=== PATIENT | female | born 1990 | race Caucasian/White ===

== ENCOUNTER 2023-01-31 11:33 | Outpatient (OUT) | payer OTHER, SELFPAY ==
[2023-02-02 00:07] LABS: AFP Value 31.9 ng/mL (.); Gest. Age on Collection Date 16.9 weeks (.); Insulin Dep Diabetes No (.); Maternal Age At EDD 33.8 yr (.); OSBR Risk 1 IN 10000 (.); Results Report (.)
[2023-02-05 11:09] LABS: Age Gdln ACOG Testing Note (.); HPV Aptima Negative (Negative); IGP, Aptima HPV, rfx 16/18,45 Note (.)
== END 2023-01-31 11:34 ==
LOC: LAB 11:37
PROVIDERS: PCP Family Medicine; Visit Provider Physician Assistant
DX: Z34.90 Encounter for supervision of normal pregnancy, unspecified, unspecified trimester (principal)
CPT/HCPCS: 36415; 87624; G0145

== ENCOUNTER 2023-02-28 09:38 | Outpatient (OUT) | payer OTHER, SELFPAY ==
--- NOTE | 2023-02-28 | US_ITS ---
[address] [address] Patient Name: DELORES GARCIA MRN: [id number] date: 1990 Sex: F Assigned Patient Location: US Current Patient Location: US Accession/Order Number: [id number] Exam Date: 02/28/2023 09:42 Report Date: 02/28/2023 16:46 At the request of: ADE JOY Procedure: US OB anatomy EXAMINATION: US OB anatomy, US OB transvaginal HISTORY: ANATOMY COMPARISON: No relevant comparison available. TECHNIQUE: Transabdominal sonographic examination was performed for obstetrical and evaluation. FINDINGS: Number: 1 Heart Rate: 144.0 bpm H.B. /min Amniotic Fluid Volume: Subjectively normal position: Transverse presentation, transverse lie Placental Location: Posterior, grade 0. Placental edge 5.5 cm from the internal os Cervix Length: 3.8 cm , closed Normally visualized anatomy: Cerebellum, choroid plexus, cisterna magna, lateral cerebral ventricles, orbits, midline falx, hard palate, four-chamber heart, RVOT, LVOT, stomach, kidneys, bladder, umbilical cord insertion into the abdomen, three-vessel cord, cervical spine, thoracic spine, lumbar spine, sacral spine, right upper extremity, left upper extremity, right lower extremity, left lower extremity Suboptimally visualized anatomy: None BIOMETRY: BPD: 5.3 cm 22 weeks 0 days , 87% HC: 20.3 cm 22 weeks 3 days, 94% AC: 16.8 cm 21 weeks 5 days, 73% FL: 3.5 cm 21 weeks 0 days, 48% EFW:433.1 grams; 15 ounces, 82% FL/AC: 20.9 FL/BPD: 66.7 HC/AC: 1.2 GESTATIONAL AGE: Age by EDC: 20 weeks 6 days DELIA by EDC: 07/12/2023 Age by current US: 21 weeks 6 days DELIA by current US: 07/05/2023 IMPRESSION: Normal anatomy scan Closed cervix measuring 3.8 cm in length *Reference: [employer] Practice Guideline for the performance of Obstetric Ultrasound Examinations, June 02, 2007. Electronically authenticated by: BRANDON RAY Date: 02/28/2023 16:46
--- NOTE | 2023-02-28 | US_ITS ---
[address] [address] Patient Name: DELORES GARCIA MRN: [id number] date: 1990 Sex: F Assigned Patient Location: US Current Patient Location: US Accession/Order Number: [id number] Exam Date: 02/28/2023 09:42 Report Date: 02/28/2023 16:46 At the request of: ADE JOY Procedure: US OB transvaginal EXAMINATION: US OB anatomy, US OB transvaginal HISTORY: ANATOMY COMPARISON: No relevant comparison available. TECHNIQUE: Transabdominal sonographic examination was performed for obstetrical and evaluation. FINDINGS: Number: 1 Heart Rate: 144.0 bpm H.B. /min Amniotic Fluid Volume: Subjectively normal position: Transverse presentation, transverse lie Placental Location: Posterior, grade 0. Placental edge 5.5 cm from the internal os Cervix Length: 3.8 cm , closed Normally visualized anatomy: Cerebellum, choroid plexus, cisterna magna, lateral cerebral ventricles, orbits, midline falx, hard palate, four-chamber heart, RVOT, LVOT, stomach, kidneys, bladder, umbilical cord insertion into the abdomen, three-vessel cord, cervical spine, thoracic spine, lumbar spine, sacral spine, right upper extremity, left upper extremity, right lower extremity, left lower extremity Suboptimally visualized anatomy: None BIOMETRY: BPD: 5.3 cm 22 weeks 0 days , 87% HC: 20.3 cm 22 weeks 3 days, 94% AC: 16.8 cm 21 weeks 5 days, 73% FL: 3.5 cm 21 weeks 0 days, 48% EFW:433.1 grams; 15 ounces, 82% FL/AC: 20.9 FL/BPD: 66.7 HC/AC: 1.2 GESTATIONAL AGE: Age by EDC: 20 weeks 6 days DELIA by EDC: 07/12/2023 Age by current US: 21 weeks 6 days DELIA by current US: 07/05/2023 IMPRESSION: Normal anatomy scan Closed cervix measuring 3.8 cm in length *Reference: [employer] Practice Guideline for the performance of Obstetric Ultrasound Examinations, June 02, 2007. Electronically authenticated by: BRANDON RAY Date: 02/28/2023 16:46
== END 2023-02-28 09:39 | disposition home or self-care (01) ==
LOC: US 09:38
PROVIDERS: PCP Family Medicine; Visit Provider Physician Assistant
DX: Z34.92 Encounter for supervision of normal pregnancy, unspecified, second trimester (principal)
CPT/HCPCS: 76805; 76817

== ENCOUNTER 2023-04-05 10:48 | Outpatient (OUT) | payer OTHER, SELFPAY ==
[2023-04-05 11:57] LABS: Basophils Absolute Auto 0.1 10^3/uL (0.0-0.1); Basophils Percent Auto 0.4 % (0.2-2.0); Eosinophils Absolute Auto 0.1 10^3/uL (0.0-0.7); Eosinophils Percent Auto 0.8 % (0.9-7.0); Hematocrit 31.3 % (36.0-48.0); Hemoglobin 10.4 g/dL (12.0-16.0); Immature Granulocytes Abs Auto 0.38 10^3/uL (0.00-0.03); Immature Granulocytes Pct Auto 3.4 % (0.0-0.5); Lymphocytes Absolute Auto 1.2 10^3/uL (1.2-3.8); Lymphocytes Percent Auto 10.8 % (20.5-60.0); Mean Corpuscular HGB Conc 33.2 g/dL (29.9-35.2); Mean Corpuscular Hemoglobin 31.3 pg (26.7-34.0); Mean Corpuscular Volume 94.3 fL (81.0-99.0); Mean Platelet Volume 10.1 fL (9.5-13.5); Monocytes Absolute Auto 0.6 10^3/uL (0.3-0.8); Monocytes Percent Auto 5.3 % (1.7-12.0); Neutrophils Absolute Auto 8.9 10^3/uL (1.4-6.5); Neutrophils Percent Auto 79.3 % (43.0-75.0); Platelet Count 235 10^3/uL (150-450); Red Blood Count 3.32 10^6/uL (4.20-5.40); Red Cell Distribution Width 12.9 % (11.0-15.0); White Blood Count 11.2 10^3/uL (4.0-11.0)
[2023-04-05 12:15] LABS: Glucose 1 Hour 136 mg/dL
== END 2023-04-05 10:49 | disposition home or self-care (01) ==
LOC: LAB 10:48
PROVIDERS: Visit Provider Physician Assistant
DX: Z34.90 Encounter for supervision of normal pregnancy, unspecified, unspecified trimester (principal)
CPT/HCPCS: 36415; 82950; 85025

== ENCOUNTER 2023-05-13 10:27 | Outpatient (OUT) | payer OTHER, SELFPAY ==
--- NOTE | 2023-05-13 10:29 | US_ITS ---
[address] [address] Patient Name: DELORES YUSUF MRN: [id number] date: 1990 Sex: F Assigned Patient Location: US Current Patient Location: US Accession/Order Number: [id number] Exam Date: 05/13/2023 10:30 Report Date: 05/13/2023 17:02 At the request of: BASILIO RADFORD Procedure: US OB growth EXAMINATION: US OB growth HISTORY: LGA COMPARISON: No relevant comparison available. FINDINGS: Heart Rate: 133.0 bpm Amniotic Fluid Volume: 23.0 cm Number: 1.0 Position: Cephalic presentation, longitudinal lie Maximum Vertical Pocket: 9.7 cm cm 5.2 cm cm 4.3 cm cm 3.7 cm cm BIOMETRY: BPD: 8.6 cm cm; 34 weeks 5 days; 97% HC: 31.5 cmcm; 35 weeks 2 days, 97% AC: 29.9 cm cm; 33 weeks 6 days, 97% FL: 6.1 cm cm; 31 weeks 6 days; 48.5 % % EFW: 2219.4 grams, 4 lbs. 14 oz., 95% FL/AC: 20.5 FL/BPD: 71.4 HC/AC: 1.1 GESTATIONAL AGE: Age by EDC: 31 weeks 3 days DELIA by EDC: 07/12/2023 Age by US: 34 weeks 0 days DELIA by US: 06/24/2023 US/US OB growth IMPRESSION: Large for gestational age Borderline polyhydramnios Electronically authenticated by: BRANDON RAY Date: 05/13/2023 17:02
== END 2023-05-13 10:28 | disposition home or self-care (01) ==
LOC: US 10:27
PROVIDERS: Visit Provider Obstetrics & Gynecology
DX: O36.63X0 Maternal care for excessive fetal growth, third trimester, not applicable or unspecified (principal); Z3A.31 31 weeks gestation of pregnancy
CPT/HCPCS: 76816

== ENCOUNTER 2023-05-28 19:47 | Outpatient (OUT) | payer OTHER, SELFPAY ==
--- NOTE | 2023-05-28 20:00 | US_ITS ---
[address] [address] Patient Name: DELORES YUSUF MRN: [id number] date: 1990 Sex: F Assigned Patient Location: [facility] Current Patient Location: Accession/Order Number: [id number] Exam Date: 05/28/2023 20:00 Report Date: 05/29/2023 07:08 At the request of: BASILIO RADFORD Procedure: US OB BPP w non-stress EXAMINATION: US OB BPP w non-stress HISTORY: POLYHYRAMINOS IN THIRD TRIMESTER O40.3XX0 COMPARISON: No relevant comparison available. TECHNIQUE: Ultrasound biophysical profile was performed in the radiology department. non-reactive stress testing was performed by nursing staff in the birthing center. FINDINGS: BREATHING MOVEMENTS: 2.0 GROSS BODY MOVEMENTS: 2.0 TONE: 2.0 QUALITATIVE AMNIOTIC FLUID VOLUME: 2.0 PRESENTATION: CEPHALIC HEART RATE: 137.1 bpm H.B./min AMNIOTIC FLUID VOLUME: 18.8 cm cm GESTATIONAL AGE: 33 weeks 4 days CONCLUSION: Total biophysical profile score: 8.0 Electronically authenticated by: BRANDON RAY Date: 05/29/2023 07:08
[2023-05-28 20:31] VITALS: BP 119/85; PULSE 90
== END 2023-05-28 20:55 | disposition home or self-care (01) ==
LOC: US 19:50 → FBC 19:52
PROVIDERS: Visit Provider Obstetrics & Gynecology
DX: O40.3XX0 Polyhydramnios, third trimester, not applicable or unspecified (principal); Z3A.33 33 weeks gestation of pregnancy; O26.843 Uterine size-date discrepancy, third trimester
CPT/HCPCS: 76818

== ENCOUNTER 2023-05-31 08:31 | Outpatient (OUT) | payer OTHER, SELFPAY ==
[2023-05-31 11:09] VITALS: BP 129/86; PULSE 112
== END 2023-05-31 11:34 | disposition home or self-care (01) ==
LOC: FBCO 08:31 → FBC 11:04
PROVIDERS: Visit Provider Obstetrics & Gynecology
DX: O40.3XX0 Polyhydramnios, third trimester, not applicable or unspecified (principal); Z3A.00 Weeks of gestation of pregnancy not specified
CPT/HCPCS: 59025

== ENCOUNTER 2023-06-03 08:30 | Outpatient (OUT) | payer OTHER, SELFPAY ==
--- NOTE | 2023-06-03 10:59 | US_ITS ---
[address] [address] Patient Name: DELORES YUSUF MRN: [id number] date: 1990 Sex: F Assigned Patient Location: US Current Patient Location: Accession/Order Number: [id number] Exam Date: 06/03/2023 11:00 Report Date: 06/03/2023 17:29 At the request of: BASILIO RADFORD Procedure: US OB BPP w non-stress EXAMINATION: US OB BPP w non-stress HISTORY: Polyhydramnios in third trimester O40.3XX0 COMPARISON: 05/28/2023 TECHNIQUE: Ultrasound biophysical profile was performed in the radiology department. non-reactive stress testing was performed by nursing staff in the birthing center. FINDINGS: BREATHING MOVEMENTS: 2.0 GROSS BODY MOVEMENTS: 2.0 TONE: 2.0 QUALITATIVE AMNIOTIC FLUID VOLUME: 2.0 PRESENTATION: CEPHALIC HEART RATE: 135.7 bpm H.B./min AMNIOTIC FLUID VOLUME: 25.2 cm cm GESTATIONAL AGE: 34 weeks 3 days CONCLUSION: Total biophysical profile score: 8.0 Amniotic fluid index at the 95th percentile Electronically authenticated by: BRANDON RAY Date: 06/03/2023 17:29
[2023-06-03 11:23] VITALS: BP 133/83; PULSE 94
== END 2023-06-03 12:00 | disposition home or self-care (01) ==
LOC: US 08:36 → FBC 11:01
PROVIDERS: Visit Provider Obstetrics & Gynecology
DX: O40.3XX0 Polyhydramnios, third trimester, not applicable or unspecified (principal); Z3A.34 34 weeks gestation of pregnancy
CPT/HCPCS: 76818

== ENCOUNTER 2023-06-06 07:38 | Outpatient (OUT) | payer OTHER, SELFPAY ==
[2023-06-06 11:04] VITALS: BP 119/85; PULSE 100
== END 2023-06-06 11:50 | disposition home or self-care (01) ==
LOC: FBCO 07:39 → FBC 10:58
PROVIDERS: Visit Provider Obstetrics & Gynecology
DX: O43.899 Other placental disorders, unspecified trimester (principal); Z3A.00 Weeks of gestation of pregnancy not specified
CPT/HCPCS: 59025

== ENCOUNTER 2023-06-10 07:16 | Outpatient (OUT) | payer OTHER, SELFPAY ==
--- NOTE | 2023-06-10 | US_ITS ---
[address] [address] Patient Name: DELORES YUSUF MRN: [id number] date: 1990 Sex: F Assigned Patient Location: [facility] Current Patient Location: Accession/Order Number: [id number] Exam Date: 06/10/2023 09:08 Report Date: 06/10/2023 14:55 At the request of: BASILIO RADFORD Procedure: US OB BPP w non-stress EXAMINATION: US OB BPP w non-stress HISTORY: POLYHYDRAMINOS IN THIRD TRIMESTER O40.3XX0 COMPARISON: No relevant comparison available. TECHNIQUE: Ultrasound biophysical profile was performed in the radiology department. FINDINGS: BREATHING MOVEMENTS: 2.0 GROSS BODY MOVEMENTS: 2.0 TONE: 2.0 QUALITATIVE AMNIOTIC FLUID VOLUME: 2.0 PRESENTATION: CEPHALIC HEART RATE: 135.7 bpm H.B./min AMNIOTIC FLUID VOLUME: 25.0 cm cm GESTATIONAL AGE: 35 weeks 3 days CONCLUSION: Total biophysical profile score: 8.0 Electronically authenticated by: BRANDON RAY Date: 06/10/2023 14:55
[2023-06-10 09:24] VITALS: BP 132/91; PULSE 100
[2023-06-10 09:30] VITALS: BP 120/84; PULSE 106
[2023-06-10 09:35] VITALS: BP 118/85; PULSE 91
== END 2023-06-10 09:46 | disposition home or self-care (01) ==
LOC: US 07:17 → FBC 08:57
PROVIDERS: Visit Provider Obstetrics & Gynecology
DX: O40.3XX0 Polyhydramnios, third trimester, not applicable or unspecified (principal); Z3A.35 35 weeks gestation of pregnancy
CPT/HCPCS: 76818

== ENCOUNTER 2023-06-13 12:15 | Observation (INO) | payer OTHER, SELFPAY ==
[2023-06-13 11:04] VITALS: BP 127/80; PULSE 108
[2023-06-13 12:44] VITALS: BP 127/80
[2023-06-13] MEDS: NIFEdipine 10 MG CAPSULE 20 MG PO (12:44)
[2023-06-13] MEDS: BETAMETHASONE ACE/BETAMETHASONE SOD PHOS 30 MG/5 ML 12 MG IM (12:44)
[2023-06-13] MEDS: 0.9 % SODIUM CHLORIDE 1,000 ML 1000 ML IV (12:52)
[2023-06-13 14:20] VITALS: BP 127/85; PULSE 97
[2023-06-13 14:49] VITALS: RESP 18
--- NOTE | 2023-06-13 15:34 | PC.NURSE ---
Patient educated to return to [facility] unit tomorrow (06/14/23) at 1pm for second celestone shot. Patient verbalizes understanding and agrees to do so. Patient placed on schedule.
[2023-06-13 19:14] VITALS: BP 126/75; PULSE 91; TEMP 36.4
--- NOTE | 2023-06-13 19:52 | PC.NURSE ---
FHR monitor from [id number] was erroneous from a new patient placed in this bed before this patient was discharged completely out.
== END 2023-06-13 16:22 | disposition home or self-care (01) ==
LOC: FBCO 12:36 → FBC 12:36
PROVIDERS: Admitting Provider Obstetrics & Gynecology; Visit Provider Obstetrics & Gynecology
DX: O47.9 False labor, unspecified (principal); O43.899 Other placental disorders, unspecified trimester; Z3A.00 Weeks of gestation of pregnancy not specified
CPT/HCPCS: 59025; 96372; G0378; G0379; J0702

== ENCOUNTER 2023-06-14 07:13 | Outpatient (OUT) | payer OTHER, SELFPAY ==
[2023-06-14] MEDS: BETAMETHASONE ACE/BETAMETHASONE SOD PHOS 30 MG/5 ML 12 MG IM (13:11)
[2023-06-14 13:20] VITALS: BP 138/86; RESP 18
== END 2023-06-14 07:14 | disposition home or self-care (01) ==
LOC: FBCO 07:13
PROVIDERS: Visit Provider Obstetrics & Gynecology
DX: O47.9 False labor, unspecified (principal); O43.90 Unspecified placental disorder, unspecified trimester; Z3A.00 Weeks of gestation of pregnancy not specified
CPT/HCPCS: 96372; J0702

== ENCOUNTER 2023-06-17 07:51 | Outpatient (OUT) | payer OTHER, SELFPAY ==
--- NOTE | 2023-06-17 | US_ITS ---
[address] [address] Patient Name: DELORES YUSUF MRN: [id number] date: 1990 Sex: F Assigned Patient Location: [facility] Current Patient Location: Accession/Order Number: [id number] Exam Date: 06/17/2023 11:00 Report Date: 06/17/2023 16:36 At the request of: BASILIO RADFORD Procedure: US OB BPP w non-stress EXAMINATION: US OB BPP w non-stress HISTORY: POLYHYDRAMINOS IN THIRD TRIMESTER O40.3XX0 COMPARISON: No relevant comparison available. TECHNIQUE: Ultrasound biophysical profile was performed in the radiology department. FINDINGS: BREATHING MOVEMENTS: 2.0 GROSS BODY MOVEMENTS: 2.0 TONE: 2.0 QUALITATIVE AMNIOTIC FLUID VOLUME: 2.0 PRESENTATION: CEPHALIC HEART RATE: 137.8 bpm H.B./min AMNIOTIC FLUID VOLUME: 20.7 cm cm GESTATIONAL AGE: 36 weeks 3 days CONCLUSION: Total biophysical profile score: 8.0 Electronically authenticated by: BRANDON RAY Date: 06/17/2023 16:36
[2023-06-17 11:41] VITALS: BP 124/85; PULSE 96
== END 2023-06-17 12:03 | disposition home or self-care (01) ==
LOC: US 07:51 → FBC 11:01
PROVIDERS: Visit Provider Obstetrics & Gynecology
DX: O40.3XX0 Polyhydramnios, third trimester, not applicable or unspecified (principal); Z3A.36 36 weeks gestation of pregnancy
CPT/HCPCS: 76818; 87081

== ENCOUNTER 2023-06-17 20:45 | Outpatient (REF) | payer OTHER, SELFPAY | END 2023-06-17 20:46 | disposition home or self-care (01) | LOC: LAB 20:45 | PROVIDERS: Visit Provider Obstetrics & Gynecology | DX: Z34.93 Encounter for supervision of normal pregnancy, unspecified, third trimester (principal) | CPT/HCPCS: 87081 ==

== ENCOUNTER 2023-06-20 07:09 | Outpatient (OUT) | payer OTHER, SELFPAY ==
[2023-06-20 11:10] VITALS: BP 130/90; PULSE 82
--- NOTE | 2023-06-20 11:30 | PC.NURSE ---
arrives to [facility] for scheduled NST to [facility] private room d/t census. Tracing iniated onBECA monitor. paper strip obtained. Pt reports occasional ctx, but not consitant. Reports loosing mucous plug 2 days ago. s/s of labor reviewed and verbalizes understanding. Denies LOF or bleeding, + fm ,
== END 2023-06-20 11:43 | disposition home or self-care (01) ==
LOC: FBCO 07:09 → FBC 11:04 → FBCO 11:05 → FBC 11:23
PROVIDERS: Visit Provider Obstetrics & Gynecology
DX: O43.899 Other placental disorders, unspecified trimester (principal); Z3A.00 Weeks of gestation of pregnancy not specified
CPT/HCPCS: 59025

== ENCOUNTER 2023-06-24 17:53 | Inpatient (IN) | payer OTHER, SELFPAY ==
[2023-06-24] VITALS (84 sets, daily range): BP systolic 101–157; BP diastolic 57–108; PULSE 85–142; RESP 16–18; TEMP 35.9–36.9; O2SAT 98
[2023-06-24 08:10] LABS: Hematocrit 33.3 % (36.0-48.0); Hemoglobin 11.3 g/dL (12.0-16.0); Mean Corpuscular HGB Conc 33.9 g/dL (29.9-35.2); Mean Corpuscular Hemoglobin 31.1 pg (26.7-34.0); Mean Corpuscular Volume 91.7 fL (81.0-99.0); Mean Platelet Volume 10.9 fL (9.5-13.5); Platelet Count 248 10^3/uL (150-450); Red Blood Count 3.63 10^6/uL (4.20-5.40); Red Cell Distribution Width 13.2 % (11.0-15.0); White Blood Count 11.1 10^3/uL (4.0-11.0)
--- NOTE | 2023-06-24 08:31 | US_ITS ---
[address] [address] Patient Name: DELORES YUSUF MRN: [id number] date: 1990 Sex: F Assigned Patient Location: [facility] Current Patient Location: [facility] Accession/Order Number: [id number] Exam Date: 06/24/2023 08:40 Report Date: 06/24/2023 09:05 At the request of: BASILIO RADFORD Procedure: US OB limited EXAM: US OB limited HISTORY: PRESENTATION COMPARISON: Ultrasound OB biophysical 06/17/2023 TECHNIQUE: Transabdominal ultrasound. FINDINGS: Presentation: Cephalic Heart rate: 144 bpm GA: 37 weeks 3 days DELIA: 07/12/2023 US/US OB limited IMPRESSION: 1. Single live intrauterine in cephalic presentation. Electronically authenticated by: JENIFER OCONNELL Date: 06/24/2023 09:05
[2023-06-24 08:51] LABS: Amphetamine Screen Urine NEGATIVE (NEGATIVE); Barbiturates Screen Urine NEGATIVE (NEGATIVE); Benzodiazepines Screen Urine NEGATIVE (NEGATIVE); Buprenorphine Screen Urine NEGATIVE (NEGATIVE); Cannabinoid Screen Urine NEGATIVE (NEGATIVE); Cocaine Screen Urine NEGATIVE (NEGATIVE); Methadone Screen Urine NEGATIVE (NEGATIVE); Methamphetamines Screen Urine NEGATIVE (NEGATIVE); Opiate Screen Urine NEGATIVE (NEGATIVE); Oxycodone Screen Urine NEGATIVE (NEGATIVE); Phencyclidine Screen Urine NEGATIVE (NEGATIVE); Tricyclic Antidepressant Urine NEGATIVE (NEGATIVE)
[2023-06-24] MEDS: 0.9 % SODIUM CHLORIDE 1,000 ML 1000 ML IV (09:24)
[2023-06-24] MEDS: LIDOCAINE HCL 2% PF 100 MG/5 ML VIAL INJ (09:25)
[2023-06-24] MEDS: ROPIVACAINE HCL/PF 400 MG/200 ML PREMIX 6 MG EPIDURAL (09:25)
[2023-06-24] MEDS: FENTANYL CITRATE/PF 100 MCG/2 ML VIAL EPIDURAL ×2 (09:25→14:51)
[2023-06-24] MEDS: EPHEDRINE SULFATE 50 MG/ML VIAL IV ×2 (09:27→15:14)
[2023-06-24] MEDS: 0.9 % SODIUM CHLORIDE 1,000 ML 125 ML IV ×2 (10:27→13:16)
--- NOTE | 2023-06-24 11:48 | PC.NURSE ---
0705 Pt sitting in room 250, states felt water was leaking starting around 0500 and having ctxs every 5-6 minutes rating a 5 with some bloody show. Escorted to room 254 and obtains CCUA then into bed and EFM applied at 0720 at which time the obix monitor is tracing paper tracing while pt is being electronically admitted to bed. vs 146/104 pulse 116, FHR 145 with mod variability with accels and ctxs 2-3 minutes palpating moderate. BP recheck
[2023-06-24] MEDS: OXYTOCIN/0.9 % SODIUM CHLORIDE 10 UNITS/500 ML PLAST..BAG 6 UNIT IV (13:16)
[2023-06-24] MEDS: OXYTOCIN/0.9 % SODIUM CHLORIDE 20 UNITS/1,000 ML PLAST..BAG 125 UNIT IV (17:51)
--- NOTE | 2023-06-24 18:15 | PM.OBPRCVD ---
Procedure events: Polyhydramnios Intrapartal events: None Induction method: none Delivery augmentation: pitocin Delivery monitor: external FHT and external uterine Route of delivery: Episiotomy Description: none Laceration description: perineal - 2nd degree Delivery repair: Vicryl Estimated blood loss (mL): 450 Anesthesia type: Epidural Disposition: floor Infant Delivery date: 06/24/23 Gender: male presentation: vertex Placental delivery description: Spontaneous cord description: 3 Vessels Stage 1 Duration Labor - Stage 1 Duration: 11 hours and 6 minutes
[2023-06-24] MEDS: BENZOCAINE/MENTHOL 85 GRAM SPRAY BOTTLE 1 APPLIC TOPICAL (19:54)
[2023-06-24] MEDS: IBUPROFEN 600 MG TABLET PO (19:54)
[2023-06-24] MEDS: GLYCERIN/WITCH HAZEL PADS 1 PAD TOPICAL (19:54)
--- NOTE | 2023-06-24 20:33 | PC.NURSE ---
1814 uterus firms with massage throughout repair with a couple gushes of blood noted during same, firm after with small rubra, tori care given and ice pack applied
[2023-06-25] VITALS (8 sets, daily range): BP systolic 105–126; BP diastolic 67–80; PULSE 88–117; RESP 16; TEMP 36.6–36.8
[2023-06-25] MEDS: IBUPROFEN 600 MG TABLET PO ×3 (03:42→20:44)
[2023-06-25 06:52] LABS: Basophils Absolute Auto 0.1 10^3/uL (0.0-0.1); Basophils Percent Auto 0.3 % (0.2-2.0); Eosinophils Absolute Auto 0.1 10^3/uL (0.0-0.7); Eosinophils Percent Auto 0.5 % (0.9-7.0); Hemoglobin 7.8 g/dL (12.0-16.0); Immature Granulocytes Abs Auto 0.25 10^3/uL (0.00-0.03); Immature Granulocytes Pct Auto 1.7 % (0.0-0.5); Lymphocytes Absolute Auto 1.4 10^3/uL (1.2-3.8); Lymphocytes Percent Auto 9.7 % (20.5-60.0); Mean Corpuscular HGB Conc 33.3 g/dL (29.9-35.2); Mean Corpuscular Hemoglobin 31.3 pg (26.7-34.0); Mean Platelet Volume 10.9 fL (9.5-13.5); Monocytes Absolute Auto 1.1 10^3/uL (0.3-0.8); Monocytes Percent Auto 7.5 % (1.7-12.0); Neutrophils Absolute Auto 11.7 10^3/uL (1.4-6.5); Neutrophils Percent Auto 80.3 % (43.0-75.0); Platelet Count 192 10^3/uL (150-450); Red Blood Count 2.49 10^6/uL (4.20-5.40); Red Cell Distribution Width 13.5 % (11.0-15.0); White Blood Count 14.6 10^3/uL (4.0-11.0)
[2023-06-25 07:01] LABS: Hematocrit 23.4 % (36.0-48.0)
--- NOTE | 2023-06-25 07:13 | W.PC.ACHO ---
Registration Status: ADM IN Primary Language: Samoan Preferred Language: Samoan Active Medications Generic Name Dose Route Start Last Admin Trade Name Stefania PRN Reason Stop Dose Admin Acetaminophen 650 mg 06/24/23 18:17 Acetaminophen 325 Mg Tablet PO Q6H PRN Mild Pain Al Hydroxide/Mg Hydroxide 2,400 mg 06/24/23 18:17 Magnesium Hydroxide 2,400 Mg/10 Ml Oral.Susp PO Q6H PRN Dyspepsia Benzocaine/Menthol 1 applic 06/24/23 18:17 06/24/23 19:54 Benzocaine/Menthol 85 Gram [place] Bottle TOPICAL 1 applic Q2H PRN Administration Pain Carboprost Tromethamine 250 mcg 06/24/23 07:55 Carboprost Tromethamine 250 Mcg/Ml 1 Ml Vial IM 06/25/23 18:00 Q15M PRN Bleeding Diphtheria/Pertussis/Tetanus Vacc 0.5 ml 06/26/23 09:00 Adacel Diph,Pertuss(Acell),Tet Vac/Pf 0.5 Ml Adult Syringe IM 06/26/23 09:01 .ONCE ONE Docusate Sodium 100 mg 06/25/23 09:00 Docusate Sodium 100 Mg Capsule PO BID MAYANK Sodium Chloride 1,000 mls @ 125 mls/hr 06/24/23 10:30 06/24/23 23:23 Sodium Chloride 0.9% 1,000 Ml IV Not Given .Q8H MAYANK Ibuprofen 600 mg 06/24/23 18:17 06/25/23 03:42 Ibuprofen 600 Mg Tablet PO 600 mg Q6H PRN Administration Moderate Pain Measles/Mumps/Rubella Vaccine Live 0.5 ml 06/26/23 09:00 Measles,Mumps,Rubella Vacc/Pf 0.5 Ml Vial SQ 06/26/23 09:01 .ONCE ONE Methylergonovine Maleate 0.2 mg 06/24/23 07:55 Methylergonovine Maleate 0.2 Mg/Ml Ampule IM 06/25/23 18:00 ONCE PRN Uterine Contractility/Contract Methylergonovine Maleate 0.2 mg 06/24/23 07:55 Methylergonovine Maleate 0.2 Mg Tablet PO 06/25/23 18:00 Q4H PRN Uterine Contractility/Contract Misoprostol 600 mcg 06/24/23 07:55 Misoprostol 100 Mcg Tablet PO 06/25/23 18:00 ONCE PRN Uterine Bleeding Misoprostol 800 mcg 06/24/23 07:55 Misoprostol 100 Mcg Tablet SL 06/25/23 18:00 ONCE PRN Uterine Bleeding Misoprostol 1,000 mcg 06/24/23 07:55 Misoprostol 100 Mcg Tablet PA 06/25/23 18:00 ONCE PRN Uterine Bleeding Ondansetron HCl 4 mg 06/24/23 07:55 Ondansetron Pf 4 Mg/2 Ml Vial IV Q6H PRN Nausea And Vomiting Ondansetron HCl 4 mg 06/24/23 07:55 Ondansetron 4 Mg Rapdis Tablet SL Q6H PRN Nausea And Vomiting Senna 17.2 mg 06/24/23 20:00 Sennosides 8.6 Mg Tablet PO QHS PRN Constipation Simethicone 80 mg 06/24/23 18:17 Simethicone 80 Mg Tab.Chew PO QID PRN Abdominal Distention Temazepam 15 mg 06/24/23 18:17 Temazepam 15 Mg Capsule PO QHS PRN Sleep Witch Shazia/Glycerin 1 pad 06/24/23 18:17 06/24/23 19:54 Glycerin/Witch Shazia Pads TOPICAL 1 pad Q2H PRN Administration Pain Diet Category Date Time Status Regular Consistency Diet Diet 06/24/23 18:17 Active IV Insertion/Site Date of IV Line Insertion [20g 06/24/23 right Forearm] IV Insertion Time [20g right 07:45 Forearm] Neurology Patient orientation (short person,place,time,situation list) Respiratory Pulse Oximetry 98 Oxygen Delivery Method Room Air Oxygen Delivery Method Room Air Oxygen Delivery Method Room Air Oxygen Delivery Method Room Air Cardiology Heart Sounds Strong,Regular Heart Sounds Strong,Regular Bowels Bowel Pattern No Bowel Movement Bowel Pattern No Bowel Movement Renal Bladder Pattern Continent,Due to Void Bladder Pattern Continent,Due to Void Catheter Date Urinary Catheter Removed 06/24/23 Date Urinary Catheter Removed 06/24/23
--- NOTE | 2023-06-25 08:43 | P.OBPN_ITS ---
OB - PN: Subj Subjective Patient comments: no complaints, pain well controlled, tolerating diet and other (ambulating well no c/o dizziness, weakness or headaches ) [place] infant status: doing well Exam Constitutional Vital Signs, click to edit/add: Last Vital Signs Temp 98.1 F 06/24/23 23:45 Pulse 130 H 06/24/23 23:46 Resp 16 06/24/23 23:45 BP 128/84 06/24/23 23:46 Pulse Ox 98 06/24/23 23:45 O2 Del Method Room Air 06/24/23 23:45 Documenting provider has reviewed patient's vital signs: yes Common normals: no apparent distress Orientation/consciousness: Yes awake, Yes oriented to person, Yes oriented to place and Yes oriented to time HENMT Common normals: normocephalic Eye Common normals: EOMs intact bilaterally Neck & C-Spine Common normals: full ROM Lymph Lymphatic: no lymphadenopathy noted Chest Common normals: inspection of chest normal Respiratory Common normals: normal respiratory effort Cardio Common normals: regular rate, regular rhythm and no murmurs GI Common normals: Normal to inspection, nondistended, normoactive bowel sounds present Palpation: soft Common normals: no CVA tenderness Back & Pelvis Common normals: no CVA tenderness Extremity Common normals: normal to inspection Neuro Common normals: oriented x3 Sensorium/orientation: awake, alert, oriented to person, oriented to place and oriented to time Psych Common normals: mental status grossly normal, thought process normal and cooperative Results Labs Labs: Short CBC 06/25/23 Range/Units 06:19 WBC 14.6 H (4.0-11.0) 10^3/uL Hgb 7.8 L (12.0-16.0) g/dL Hct 23.4 L* (36.0-48.0) % Plt Count 192 (150-450) 10^3/uL OB - PN: A/P Plan - Vaginal Delivery Plan: routine care Time Spent with Patient Time: Total time spent is greater than 50% in coordination of care (as documented) at patient's floor/unit and/or counseling patient: Total time spent with greater than 50% in coordination of care (as documented) at patient's floor/unit and/or counseling patient: less than 15 minutes
[2023-06-25] MEDS: DOCUSATE SODIUM 100 MG CAPSULE PO ×2 (09:31→20:44)
[2023-06-25] MEDS: FERROUS SULFATE 325 MG TABLET PO ×2 (09:31→20:44)
--- NOTE | 2023-06-26 08:01 | PM.OBPN ---
OB - PN: Subj Subjective Patient comments: no complaints and pain well controlled [place] status: doing well Exam Constitutional Vital Signs, click to edit/add: Last Vital Signs Temp 98.2 F 06/25/23 22:45 Pulse 111 H 06/25/23 22:45 Resp 16 06/25/23 22:45 BP 105/67 06/25/23 22:45 Pulse Ox 98 06/24/23 23:45 O2 Del Method Room Air 06/25/23 22:45 Documenting provider has reviewed patient's vital signs: yes Common normals: no apparent distress Respiratory Common normals: normal respiratory effort and clear to auscultation bilaterally Cardio Common normals: regular rate and regular rhythm GI Common normals: Normal to inspection, nondistended, normoactive bowel sounds present Extremity Common normals: no calf tenderness OB - PN: A/P Plan - Vaginal Delivery day: 2 Plan: routine care, discharge home and follow up 6 weeks Time Spent with Patient Time: Total time spent is greater than 50% in coordination of care (as documented) at patient's floor/unit and/or counseling patient: Total time spent with greater than 50% in coordination of care (as documented) at patient's floor/unit and/or counseling patient: less than 15 minutes
[2023-06-26 08:20] VITALS: RESP 14; TEMP 37.2
[2023-06-26 08:21] VITALS: BP 116/81; PULSE 87
[2023-06-26] MEDS: FERROUS SULFATE 325 MG TABLET PO (08:22)
[2023-06-26] MEDS: IBUPROFEN 600 MG TABLET PO (08:22)
[2023-06-26] MEDS: DOCUSATE SODIUM 100 MG CAPSULE PO (08:22)
== END 2023-06-26 15:35 | disposition home or self-care (01) | DRG 807 ==
LOC: FBCO 17:54 → FBC 17:54
PROVIDERS: Admitting Provider Obstetrics & Gynecology; Visit Provider Obstetrics & Gynecology
DX: O40.3XX0 Polyhydramnios, third trimester, not applicable or unspecified (principal); Z37.0 Single live birth; O70.1 Second degree perineal laceration during delivery; Z3A.37 37 weeks gestation of pregnancy; Z83.3 Family history of diabetes mellitus; Z83.49 Family history of other endocrine, nutritional and metabolic diseases; Z82.49 Family history of ischemic heart disease and other diseases of the circulatory system; Z88.2 Allergy status to sulfonamides
CPT/HCPCS: 36415; 59410; 76815; 80307; 85025; 85027; 86850; 86900; 86901; 96374; 96375; 96376

== ENCOUNTER 2023-07-01 08:08 | Outpatient (OUT) | payer OTHER, SELFPAY ==
--- NOTE | 2023-07-01 12:07 | PC.NURSE ---
Arrives for follow up visit. Mom reports feedings are difficult as baby no longer latch regular since milk came in. States he acts like he has no idea of what to do . was 37 completed weeks GA at delivery, had slow start to latch at 24+ hours and now difficult to latch for feeds. Baby assessed for difficulties with feeding, slight upper lip tie noted, does not appear to restrict lip movement for latch. Slight tongue tie suspected as well, infant able to extend tongue to gums and slightly past to lip, weak suck. Tongue does move laterally and up to palate. Attempted to latch at breast. Infant roots, places mouth over nipple and does nothing else. Even when stimulated. Discussed pro's of nipple shield for late infant and making seal with mouth. Mom interested in trying as she really wants to direct breastfeed. Educated on use of nipple shield, placement and latching with shield. Able to demo placement herself. Baby roots, latches and hold shield in mouth. Waits then begins suckling. Able to maintain seal, and suck. Audible swallows noted as infant does deep draws during feed. Active nursing fo r12 min, releases latch and quiet, relaxed. Burped and retained. Questions for mom answered and states she feels comfortable and confident in ability to continue to breastfeed. Will return 07/08/2023 for further support.
[2023-07-01 12:51] VITALS: BP 118/84; PULSE 101; RESP 18; TEMP 37; O2SAT 95
== END 2023-07-01 11:35 | disposition home or self-care (01) ==
LOC: FBCO 08:09
PROVIDERS: Visit Provider Obstetrics & Gynecology
DX: Z39.2 Encounter for routine postpartum follow-up (principal)

== ENCOUNTER 2023-07-08 08:37 | Outpatient (OUT) | payer OTHER, SELFPAY ==
--- NOTE | 2023-07-08 11:27 | PC.NURSE ---
Lurdes arrives with 2 week old Conley for support. Relates that Know has latched 8-10 over the last week without the shield. States if he is too upset or hungry is not willing to go without the shield. Also states that he goes from 0 to 60 very fast . Finds it difficult to get to him before is really agitated. Lurdes reports mastitis is gone, felt much better 48 hours after antibiotics started. Encouraged to continue to take medication as prescribed and given handout on Blocked Ducts and Mastitis by Dr Fady Costa. After weight check Conley crying and rooting. To breast without shield, becomes more frustrated, now arching away from breast. Milk is dripping from both breasts. Baby to breast with assistance of LC, nipple drips milk into baby's mouth yet refused latching. Baby refuses latch until shield placed. Once shield placed, baby begins sucking ans swallowing but is slow and disorganized at times. Mom shown to do C-hold on breast /dancer's position for jaw support, baby shows improvement with suck pattern and more vigorous. Discussed to continue offering without shield, but to use it if baby very frustrated. Discussed lower jaw support to improve suck pattern. Also shown exercises for strength, tug of war, walk the chin to relax tight lower jaw and stimulation to area just behind oral rugae for remembering to suck when nipple stimulates the area for feeds. Mom states will continue to work with baby for . States is confident we will get there Aware to call when wants additional support for right now is confident in skill to continue working with baby.
== END 2023-07-08 11:41 | disposition home or self-care (01) ==
LOC: FBCO 08:38
PROVIDERS: Visit Provider Obstetrics & Gynecology
DX: Z39.1 Encounter for care and examination of lactating mother (principal)
CPT/HCPCS: G0463

== ENCOUNTER 2024-08-20 13:39 | Outpatient (OUT) | payer OTHER, MEDICAID, SELFPAY ==
--- NOTE | 2024-08-20 13:43 | MM_ITS ---
Patient Name: DELORES YUSUF MR#: [id number] : 1990 Exam Date: 08/20/2024 Ordering Doctor: SHAWN Hein . RADIOLOGY REPORT PROCEDURE: MM TOMOSYNTHESIS DIAGNOSTIC BI, 08/20/2024, 13:43 US BREAST RT LIMITED, 08/20/2024, 14:19 COMPARISON: None. INDICATIONS: Right Breast Lump Calculator Name NCI Breast Cancer Risk Assessment Tool 5 Year Breast Cancer Risk Not Applicable. Lifetime Breast Cancer Risk Not Applicable. Personal Breast Cancer No Personal Ovarian Cancer No Treatments None Family Cancers Aunt-maternal with breast cancer at age 56. LOCATION: [facility] BREAST COMPOSITION: The breasts are extremely dense, which lowers the sensitivity of mammography. FINDINGS: Scattered benign-appearing calcifications are present. Scattered benign-appearing lymph nodes are present. RIGHT BREAST: Focal asymmetry upper outer quadrant in the region the patient's palpable abnormality. Ultrasound demonstrates a tubular, saccular structure measuring 5.1 cm in length, 4.5 x 4 mm in diameter with some internal low-level echoes and, vascularity and possibly calcification. I favor a dilated duct with intraluminal contents however the presence of vascularity is suspicious. MRI follow-up is recommended for further characterization LEFT BREAST: No significant suspicious finding. DIAGNOSTIC CATEGORY 0--INCOMPLETE: NEED ADDITIONAL IMAGING EVALUATION. RECOMMENDATIONS: FOLLOW-UP BREAST MRI BILATERAL BREASTS IN 12 MONTHS. PLEASE NOTE: A NORMAL MAMMOGRAM DOES NOT EXCLUDE THE POSSIBILITY OF BREAST CANCER. A CLINICALLY SUSPICIOUS PALPABLE LUMP SHOULD BE BIOPSIED. Dictated by: Garfield Younger MD on 08/20/2024 at 14:53 Approved by: Garfield Younger MD on 08/20/2024 at 14:58
--- OUTSIDE RECORDS SUMMARY | 2024-08-20 13:43 | XMS_ITS | CCD ---
Author Organization [facility] Care Team Providers Care [employer] Inspector Name Role Phone CLAUDIA FRENCH Unavailable Unavailable REFERRED, SELF Unavailable Unavailable NO PRIMARY CARE, Unavailable Unavailable Sima Logan Unavailable MALINA ., DR RICHMOND Attending Unavailable REQUEST, NONE LISTED Primary Care Unavaila ble MALINA ., DR RICHMOND Consulting Unavailable MALINA ., DR RICMHOND Admitting Unavailable ZIEBER, DR JENIFER Blount Consulting Unavailable MALINA ., DR RICHMOND Admitting Unavailable MALINA ., DR RICHMOND Attending Unavailable REQUEST, DR NONE LISTED Primary Care Unavaila ble MALINA ., DR RICHMOND Admitting Unavailable MALINA ., DR RICHMOND Attending Unavailable REQUEST, DR NONE LISTED Primary Care Unavaila ble MALINA ., DR RICHMOND Consulting Unavailable ALESHA JOY Attending Unavailable Henna Jc Primary Care Provid er HENNA HODGE Referring Unavailable FREDDY HODGEERIE J Primary Care Unavailable BROOKE HICKS Attending Unavailable HENNA HODGE Referring Unavailable HODGEFREDDY FLORESERIE Mookie Primary Care Unavailable NICOLLE HODGEE Mookie Attending Unavailable FREDDY HODGEERIE J Referring Unavailable HODGE HENNA J Primary Care Unavailable HENNA HODGE Attending Unavailable SUNDAR TODD Referring Unavailable HENNA HODGE Primary Care Unavailable HENNA HODGE Referring Unavailable FREDDY HODGEERIE Mookie Primary Care Unavailable NAVEEN HENNA Referring Unavailable Junior PEDRO Attending Unavailable Sundar Todd MD Primary Care Provider Allergies Allergy Classification Reported Allergen(s) Allergy Type Date of Onset Reaction(s) Facility (4 sources) SULFA ANTIBIOTICS; Translations: [SULFA ANTIBIOTICS] Propensity to adverse reactions to drug (disorder) 11-13-[address] [facility] Repository (2 sources) Sulfacetamide / Sulfur Drug Allergy [facility] Other (2 sources) Sulfonamides (Antibiotic) Drug allergy (disorder) [address] [facility] Repository (6 sources) Sulfonamides (Antibiotic); Translations: [SULFA (SULFONAMIDE ANTIBIOTICS)] Propensity to adverse reactions to drug 7 Rash [facility] Medications Current Medications Medication Drug Class(es) Dates Sig (Normalized) Sig (Original) aspirin 81 mg delayed release oral tablet (3 sources) Platelet Aggregation Inhibitor, Nonsteroidal Anti-inflammatory Drug End: 08-18-2024 take 1 tablet by mouth in the morning aspirin 81 MG EC tablet Take 81 mg by mouth in the morning. 08/18/2024 Discontinued cephalexin 500 mg oral capsule (2 sources) Cephalosporin Antibacterial Start: 08-18-2024 End: 08-25-2024 take 1 capsule by mouth in the morning, then take 1 capsule by mouth in the evening, then take 1 capsule by mouth at bedtime cephalexin (Keflex) 500 MG capsule Indications: Breast lump on right side at 11 o'clock position Take 1 capsule (500 mg) by mouth in the morning and 1 capsule (500 mg) in the evening and 1 capsule (500 mg) before bedtime. Do all this for 7 days. 21 capsule 08/18/2024 08/25/2024 Active Ethinyl Estradiol / Ferrous fumarate / Norethindrone (2 sources) Estrogen Start: 08-18-2024 End: 09-15-2024 take 1 tablet by mouth once daily norethindrone-ethi nyl estradiol-iron (Lo Loestrin Fe) 1 MG-10 MCG / 10 MCG tablet Indications: Encounter for initial prescription of contraceptive pills Take 1 tablet by mouth Daily for 28 days Take 1 tablet by mouth daily 28 tablet 08/18/2024 09/15/2024 Active omeprazole 40 mg delayed release oral capsule (3 sources) Proton Pump Inhibitor Start: 10-29-2023 take 1 capsule by mouth in the morning omeprazole (PriLOSEC) 40 mg capsule Indications: Epigastric pain Take 1 capsule (40 mg total) by mouth in the morning. 30 capsule 3 10/29/2023 Active penicillin v potassium 500 mg oral tablet (2 sources) Start: 11-28-2021 take 1 tablet by mouth every twelve hours Penicillin V Potassium 500 MG 1 tablet Orally Twice a day for 10 day(s) Oct, Active Lcmqycbv-Afx-Ns-FA ( 1 + IRON PO) (3 sources) End: 08-18-2024 Ffscfcuv-Xby-Ar-FA ( 1 + IRON PO) 08/18/2024 Discontinued Multivi t-Min-Fe-FA ( 1 + IRON PO) Active Vit-Fe Fumarate-FA ( 1+1 PO) (3 sources) End: 08-18-2024 take 1 tablet by mouth in the morning Vit-Fe Fumarate-FA ( 1+1 PO) Take 1 tablet by mouth in the morning. 08/18/2024 Discontinued take 1 tablet by mouth in the mo rning Vit-Fe Fumarate-FA ( 1+1 PO) Take 1 tablet by mouth in the morning. Active raNITIdine 150 mg oral capsule (4 sources) Histamine-2 Receptor Antagonist End: 08-18-2024 take 1 capsule by mouth in the morning raNITIdine (Zantac) 150 MG capsule Take 150 mg by mouth in the morning and 150 mg in the evening. 08/18/2024 Discontinued Completed/Discontinued Medications Medication Drug Class(es) Dates Sig (Normalized) Sig (Original) (2 sources) Not-Deyvi ing NO122/IRON/FOLIC ACID ( MULTI ORAL) (3 sources) End: 11-13-2023 take 1 tablet by mouth once daily NO122/IRON/FOLIC ACID ( MULTI ORAL) Take 1 tablet by mouth daily. 0 11/13/2023 Discontinued (Therapy completed) take 1 tablet by mouth once rainer y NO122/IRON/FOLIC ACID ( MULTI ORAL) Take 1 tablet by mouth daily. 0 Active Problems Active Problems Problem Classification Problem Date Documented Da te Episodic/Chronic Abdominal pain (5 sources) Epigastric pain; Translations: [Epigastric pain] Onset: 11-04-2023 10-29-2023 Episodic Biliary tract disease (3 sources) Biliary sludge; Translations: [Other specified diseases of gallbladder] Onset: 11-13-2023 11-06-2023 Episodic Calculus of urinary tract (2 sources) Kidney stone; Translations: [Calculus of kidney] Onset: 10-29-2023 10-29-2023 Episodic Contraceptive and procreative management (2 sources) Patient encounter status; Translations: [Encounter for initial prescription of contraceptive pills] 08-18-2024 Episodic Menstrual disorders (4 sources) Irregular menstruation, unspecified; Translations: [IRREGULAR MENSTRUATION UNSPECIFIED] Onset: 11-22-2022 Chronic Nonmalignant breast conditions (2 sources) Breast lump; Translations: [Unspecified lump in the right breast, upper outer quadrant] 08-18-2024 Episodic Other complications of (1 source) Other placental disorders, first trimester; Translations: [OTH PLACENTAL DISORDER FIRST TRI] Onset: 12-05-2022 Episodic Other gastrointestinal disorders (1 source) Heartburn Onset: 11-13-2023 Episodic Other and delivery including normal (4 sources) Encounter for supervision of other normal , first trimester; Translations: [ENC SUPV OTH NORMAL PREG FIRST TRI] Onset: 12-14-2022 Episodic Residual codes; unclassified (1 source) Less than 8 weeks gestation of ; Translations: [< 8 WEEKS GESTATION ] Onset: 12-05-2022 Episodic Unclassified (1 source) Annual Exam Onset: 12-16-2023 Unclassified (1 source) Cholelithiasis Onset: 11-13-2023 Unclassified (1 source) Bloated Onset: 11-13-2023 Unclassified (1 source) new patient Onset: 10-29-2023 Past or Other Problems Problem Classification Problem Date Documented Da te Episodic/Chronic Acute and chronic tonsillitis (1 source) Acute tonsillitis, unspecified Onset: 11-28-2021 Resolved: 11-28-2021 Episodic Immunizations and screening for infectious disease (1 source) Contact with and (suspected) exposure to other viral communicable diseases Onset: 11-28-2021 Resolved: 11-28-2021 Episodic Mood disorders (3 sources) Mood disorders Onset: 10-29-2023 10-29-2023 Other complications of ; puerperium affecting management of mother (3 sources) Disorder of structure; 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 Comment on above: Performed By: #### C BCA, CMP, 86982-6, 3015-3 #### [facility] ([id number]) [address], [address] [place] [address] Basophils/100 WBC (Bld) 1.1 % Normal [facility] Comment on above: Performed By: #### C BCA, CMP, 12299-4, 3015-3 #### [facility] ([id number]) [address], [address] [place] [address] Eosinophils (Bld) [#/Vol] 0.1 10*3/uL Normal 0.0-0.4 [facility] Comment on above: Performed By: #### C BCA, CMP, 67590-3, 3015-3 #### [facility] ([id number]) [address], [address] [place] [address] Eosinophils/100 WBC (Bld) 1.9 % Normal [facility] Comment on above: Performed By: #### C BCA, CMP, 89083-6, 3015-3 #### [facility] ([id number]) [address], [address] [place] [address] Erythrocyte distribution width (RBC) [Ratio] 13.6 % Normal 11.5-15.0 [facility] Comment on above: Performed By: #### C BCA, CMP, 59269-6, 3016-3 #### [facility] ([id number]) [address], [address] [place] [address] Hematocrit (Bld) [Volume fraction] 35.8 % Normal 35-47 [facility] Comment on above: Performed By: #### C BCA, CMP, 38547-0, 3015-3 #### [facility] ([id number]) [address], [address] [place] [address] Hemoglobin (Bld) [Mass/Vol] 12.2 g/dL Normal 11.7-15.5 [facility] Comment on above: Performed By: #### C BCA, CMP, 20525-5, 3015- #### [facility] ([id number]) [address], [facility] [address] [place] [address] Lymphocytes (Bld) [#/Vol] 1.4 10*3/uL Normal 1.0-3.5 [facility] Comment on above: Performed By: #### C BCA, CMP, 42312-4, 3015-11 #### [facility] ([id number]) [address], [facility] [address] [place] [address] Lymphocytes/100 WBC (Bld) 27.0 % Normal [facility] Comment on above: Performed By: #### C BCA, CMP, 20914-8, 3015-3 #### [facility] ([id number]) [address], [address] [place] [address] MCH (RBC) [Entitic mass] 29.3 pg Normal 27-34 [facility] Comment on above: Performed By: #### C BCA, CMP, 26423-2, 3015-3 #### [facility] ([id number]) [address], [address] [place] [address] MCHC (RBC) [Mass/Vol] 34.0 g/dL Normal 32-36 [facility] Comment on above: Performed By: #### C BCA, CMP, 44742-3, 3 #### [facility] ([id number]) [address], [address] [place] [address] MCV (RBC) [Entitic vol] 86 fL Normal 80-100 [facility] Comment on above: Performed By: #### C BCA, CMP, 64393-6, 3015-3 #### [facility] ([id number]) [address], [address] [place] [address] Monocytes (Bld) [#/Vol] 0.3 10*3/uL Normal 0-0.9 [facility] Comment on above: Performed By: #### C BCA, CMP, 71014-1, 3015- #### [facility] ([id number]) [address], [address] [place] [address] Monocytes/100 WBC (Bld) 5.9 % Normal [facility] Comment on above: Performed By: #### C BCA, CMP, 97855-6, 3015- #### [facility] ([id number]) [address], [address] [place] [address] Neutrophils/100 WBC (Bld) 64.1 % Normal [facility] Comment on above: Performed By: #### C BCA, CMP, 81234-5, 3015- #### [facility] ([id number]) [address], [address] [place] [address] Platelet mean volume (Bld) [Entitic vol] 9.0 fL Normal 7-12 [facility] Comment on above: Performed By: #### C BCA, CMP, 78742-2, 3015-3 #### [facility] ([id number]) [address], [address] [place] [address] Platelets (Bld) [#/Vol] 262 10*3/uL Normal 150-450 [facility] Comment on above: Performed By: #### C BCA, CMP, 85581-3, 3015-3 #### [facility] ([id number]) [address], [address] [place] [address] RBC COUNT 4.15 X10E12/L Normal 3.80-5.20 [facility] Comment on above: Performed By: #### C BCA, CMP, 72255-9, 3015-3 #### [facility] ([id number]) [address], [address] [place] [address] WBC (Bld) [#/Vol] 5.0 10*3/uL Normal 4.0-11.0 [facility] Comment on above: Performed By: #### C BCA, CMP, 61050-3, 3015- #### [facility] ([id number]) [address], [address] [place] [address] COMPREHENSIVE METABOLIC PANE Ciro 12-16-2023 Albumin [Mass/Vol] 4.7 g/dL Normal 3.2-5.3 [facility] Comment on above: Performed By: #### C BCA, CMP, , 3015- #### [facility] ([id number]) [address], [address] [place] [address] ALP [Catalytic activity/Vol] 68 U/L Normal 39-130 [facility] Comment on above: Performed By: #### C BCA, CMP, 14673-8, 3015- #### [facility] ([id number]) [address], [address] [place] [address] ALT [Catalytic activity/Vol] 14 U/L Normal 0-31 [facility] Comment on above: Performed By: #### C BCA, CMP, 72974-0, 3015-3 #### [facility] ([id number]) [address], [address] [place] [address] Anion gap [Moles/Vol] 10 mmol/L Normal 5-15 [facility] Comment on above: Performed By: #### C BCA, CMP, 46404-3, 3015-3 #### [facility] ([id number]) [address], [address] [place] [address] AST [Catalytic activity/Vol] 16 U/L Normal 0-41 [facility] Comment on above: Performed By: #### C BCA, CMP, 43671-9, 3015-3 #### [facility] ([id number]) [address], [address] [place] [address] Bilirubin [Mass/Vol] 0.4 mg/dL Normal 0.3-1.[address] [facility] Comment on above: Performed By: #### C BCA, CMP, 25476-1, 3015- #### [facility] ([id number]) [address], [address] [place] [address] Calcium [Mass/Vol] 9.5 mg/dL Normal 8.5-10.5 [facility] Comment on above: Performed By: #### C BCA, CMP, , 3015-3 #### [facility] ([id number]) [address], [address] [place] [address] Chloride [Moles/Vol] 105 mmol/L Normal 98-[address] [facility] Comment on above: Performed By: #### C BCA, CMP, , 3015-3 #### [facility] ([id number]) [address], [address] [place] [address] CO2 [Moles/Vol] 27 mmol/L Normal 22-32 [facility] Comment on above: Performed By: #### C BCA, CMP, , 3015-3 #### [facility] ([id number]) [address], [address] [place] [address] Creatinine [Mass/Vol] 0.74 mg/dL Normal 0.40-1.00 [facility] Comment on above: Result Comment: METH OD TRACEABLE TO IDMS STANDARD Performed By: #### C MARK ANTHONY, CMP, 90180-6, 6-3 #### [facility] ([id number]) [address], [address] [place] [address] eGFR (CKD-EPI) NON-RACE DEPENDENT >90 Normal >59 [facility] Comment on above: Result Comment: Reported eGFR is based on the CKD-EPI 2020 equation that does not use a race coefficient. Performed By: #### C BCA, CMP, 89767-5, 6-3 #### [facility] ([id number]) [address], [address] [place] [address] Glucose [Mass/Vol] 76 mg/dL Normal 65-99 [facility] Comment on above: Performed By: #### C BCA, CMP, 90207-7, 3015-3 #### [facility] ([id number]) [address], [address] [place] [address] Potassium [Moles/Vol] 4.4 mmol/L Normal 3.5-5.0 [facility] Comment on above: Performed By: #### C BCA, CMP, 96805-1, 3015-3 #### [facility] ([id number]) [address], [address] [place] [address] Protein [Mass/Vol] 7.6 g/dL Normal 6.0-8.0 [facility] Comment on above: Performed By: #### C BCA, CMP, 73710-8, 6-3 #### [facility] ([id number]) [address], [address] [place] [address] Sodium [Moles/Vol] 142 mmol/L Normal 134-146 [facility] Comment on above: Performed By: #### C BCA, CMP, 79879-2, 6-3 #### [facility] ([id number]) [address] [address] [place] [address] Urea nitrogen [Mass/Vol] 12 mg/dL Normal 5-23 [facility] Comment on above: Performed By: #### Cady HOPSON CMP, 33075-7, 3016-3 #### [facility] ([id number]) [address], [facility] [address] [place] [address] HGB A1C (GLYCO-HGB)on 2023 Glucose [Mass/Vol] 105 mg/dL Normal [facility] Comment on above: Performed By: #### C CUATE HOPSON, 00660-3, 3016-3 #### [facility] ([id number]) [address] [address] HbA1c (Bld) [Mass fraction] 5.3 % Normal 4.4-5.6 [facility] Comment on above: Result Comment: NOTE ADA Guidelines Result HgbA1c Normal : less than 5.7 % Prediabetes : 5.7 % to 6.4 % Diabetes : > 6.4 % Use with caution in patients with abnormal hemoglobin variants as the half-life of red blood cells and in vivo glycation rates are affected. Performed By: #### Cady HOPSON CMP, 87026-3, 3016-3 #### [facility] ([id number]) [address] [address] [place] [address] Lipid 1996 panelon Cholesterol [Mass/Vol] 194 mg/dL Normal 150-200 [facility] Comment on above: Performed By: #### Cady HOPSON CMP, 88636-4, 3016-3 #### [facility] ([id number]) [address] [address] [place] [address] Cholesterol in HDL [Mass/Vol] 53 mg/dL Normal >39 [facility] Comment on above: Result Comment: HDL <40 mg/dL - High Risk HDL > or = 40mg/dL- Desirable HDL >60 mg/dL - Negative Risk Performed By: #### Cady HOPSON, CMP, 78657-8, 3016-3 #### [facility] ([id number]) [address], [facility] [address] [place] [address] Cholesterol in LDL [Mass/Vol] 120 mg/dL Normal <130 [facility] Comment on above: Result Comment: LDL <100 mg/dL - Desirable LDL >160 mg/dL - High Risk Performed By: #### Cady BCA, CMP, 25525-1, 6-3 #### [facility] ([id number]) [address], [address] [place] [address] Cholesterol in VLDL [Mass/Vol] 21 mg/dL Normal 0-30 [facility] Comment on above: Performed By: #### Cady HOPSON, CMP, 28545-7, 6-3 #### [facility] ([id number]) [address] [address] [place] [address] CHOLESTEROL:HDL 3.7 Normal 1.0-5.0 [facility] Comment on above: Performed By: #### Cady BCA, CMP, 89912-5, 6-3 #### [facility] ([id number]) [address] [address] [place] [address] Triglyceride [Mass/Vol] 107 mg/dL Normal 27-150 [facility] Comment on above: Performed By: #### Cady BCA, CMP, 91830-3, 3016-3 #### [facility] ([id number]) [address], [address] [place] [address] TSH Qnon 12-16-2023 TSH 1.36 uIU/mL Normal 0.49-4.67 [facility] Comment on above: Performed By: #### C MARK ANTHONY, [facility], 85755-1, 3016-3 #### [facility] ([id number]) [address] [place] [address] US ABDOMEN LMTDon 11-04-2023 US ABDOMEN LMTD US ABDOMEN LMTD History: Epigastric pain. Gas and bloating. Exam/Technique: Right upper quadrant ultrasound with color doppler. Comparison: None Findings: Small amount of echogenic material, with biliary sludge, is displayed. The gallbladder otherwise appears normal with no evidence of calculi or other imaging abnormalities and no tenderness localizable to the gallbladder during scanning. There is no intra- or extrahepatic biliary dilatation. The liver appears grossly normal in overall size, contour and echogenicity with no evidence of focal lesions. The pancreas is fairly well seen in its entirety with no abnormalities demonstrated. On scanning of the right upper quadrant no hydronephrosis or other gross abnormalities of the right kidney are displayed. IMPRESSION: Small amount of sludge displayed in the gallbladder with no calculi. Otherwise negative ultrasound of the right upper quadrant Finalized by Maverick Clarke MD on 11/04/2023 11:28 AM Normal [facility] HEP B SURFACE ANTIGEN SCREEN on 12-15-2022 HBsAg Screen Negative Normal Negative [facility] Comment on above: Performed By: #### H BSANS #### [facility] [address] [address] [address] Helen Morrison HEPATITIS C VIRUS AB W/ REFL EX QUANTon 12-15-2022 HCV AB Non-Reactive Normal Non Reactive [facility] Comment on above: Performed By: #### H CVPCRR #### [facility] [address] [address] [address] Helen Morrison Interpretation: Comment Normal [facility] Comment on above: Result Comment: Not infected with HCV unless early or acute infection is suspected (which may be delayed in an immunocompromised individual), or other evidence exists to indicate HCV infection. Performed By: #### H CVPCRR #### [facility] [address] [address] [address] Helen Morrison HIV 1 AND 2 WITH REFLEXon HIV Screen 4th Generation wRfx Non-Reactive Normal Non Reactive [facility] Comment on above: Result Comment: HIV Negative HIV-1/HIV-2 antibodies and HIV-1 p24 antigen were NOT detected. There is no laboratory evidence of HIV infection. Performed By: #### H IV12 #### [facility] [address] [place] [address] Dr. Helen Morrison RPR QUANTon 12-15-2022 Rapid Plasma Reagin, Quant Non-Reactive Normal NonRea<1:1 [facility] Comment on above: Result Comment: Plea se Note: This test does not meet current guidelines for screening and diagnosis of syphilis. This test is intended for following treatment response in patients being treated for syphilis infection. To screen for syphilis infection, a reflex cascade that includes both RPR and a treponema-specific assay should be utilized, such as Treponema pallidum (Syphilis) Screening [place] (582678) or Rapid Plasma Reagin (RPR) Test With Reflex to Quantitative RPR and Confirmatory Treponema pallidum Antibodies (024003). Performed By: #### R PRQ #### [facility] [address] [place] [address] Dr. Helen Morrison RUBELLA AB IGGon 12-15-2022 Rubella Antibodies, IgG 2.11 index Normal Immune >0.[address] [facility] Comment on above: Result Comment: Non- immune <0.90 Equivocal 0.90 - 0.99 Immune >0.99 Performed By: #### R UBIGG #### [facility] [address] [place] [address] Dr. Helen Morrison BOX TEST SENT OUTon 12-15-19 SENT TO REF LAB 12/14/22 Normal [facility] Comment on above: Performed By: #### T NS #### [facility] [address] [place] [address] Dr. Helen Morrison CBC AUTO DIFFon 12-14-2022 BASO # 0.0 103/ul Normal 0.0-0.1 [facility] Comment on above: Performed By: #### C BC #### [facility] [address] [address] [address] Helen Morrison Basophils/100 WBC (Bld) 0.4 % Normal 0.2-2.0 [facility] Comment on above: Performed By: #### C BC #### [facility] [address] [address] [address] Helen Morrison EO # 0.1 103/ul Normal 0.0-0.[address] [facility] Comment on above: Performed By: #### C BC #### [facility] [address] [address] [address] Helen Morrison Eosinophils/100 WBC (Bld) 0.7 % Critically low 0.9-7.0 [facility] Comment on above: Performed By: #### C BC #### [facility] [address] [address] [address] Helen Morrison Erythrocyte distribution width (RBC) [Ratio] 12.3 % Normal 11.0-15.0 [facility] Comment on above: Performed By: #### C BC #### [facility] [address] [address] [address] Helen Morrison Hematocrit (Bld) [Volume fraction] 34.8 % Critically low 36.0-48.0 [facility] Comment on above: Performed By: #### C BC #### [facility] [address] [address] [address] Helen Morrison Hemoglobin (Bld) [Mass/Vol] 11.8 g/dL Critically low 12.0-16.0 [facility] Comment on above: Performed By: #### C BC #### [facility] [address] [address] [address] Helen Morrison IG # 0.04 10e3/ul Critically high 0.00-0.03 [facility] Comment on above: Performed By: #### C BC #### [facility] [address] [address] [address] Helen Morrison IG % 0.6 % Critically high 0.0-0.5 [facility] Comment on above: Performed By: #### C BC #### [facility] [address] [address] [address] Helen Morrison LYMPH # 1.1 103/ul Critically low 1.2-3.8 [facility] Comment on above: Performed By: #### C BC #### [facility] [address] [address] [address] Helen Morrison Lymphocytes/100 WBC (Bld) 15.2 % Critically low 20.5-60.0 [facility] Comment on above: Performed By: #### C BC #### [facility] [address] [address] [address] Helen Morrison MANUAL DIFF REQ NO Normal [facility] Comment on above: Performed By: #### C BC #### [facility] [address] [place] [address] Dr. Helen Morrison MCH (RBC) [Entitic mass] 30.3 pg Normal 26.7-34.0 [facility] Comment on above: Performed By: #### C BC #### [facility] [address] [place] [address] Dr. Helen Morrison MCHC (RBC) [Mass/Vol] 33.9 g/dL Normal 29.9-35.2 [facility] Comment on above: Performed By: #### C BC #### [facility] [address] [place] [address] Dr. Helen Morrison MCV (RBC) [Entitic vol] 89.2 fL Normal 81.0-99.0 [facility] Comment on above: Performed By: #### C BC #### [facility] [address] [place] [address] Dr. Helen Morrison MONO # 0.6 103/ul Normal 0.3-0.8 [facility] Comment on above: Performed By: #### C BC #### [facility] [address] [place] [address] Dr. Helen Morrison Monocytes/100 WBC (Bld) 8.2 % Normal 1.7-12.0 [facility] Comment on above: Performed By: #### C BC #### [facility] [address] [address] [address] Helen Morrison NEUT # 5.4 103/ul Normal 1.4-6.5 [facility] Comment on above: Performed By: #### C BC #### [facility] [address] [address] [address] Helen Morrison Neutrophils/100 WBC (Bld) 74.9 % Normal 43.0-75.0 [facility] Comment on above: Performed By: #### C BC #### [facility] [address] [place] [address] Dr. Helen Morrison Platelet mean volume (Bld) [Entitic vol] 10.3 fL Normal 9.5-13.5 [facility] Comment on above: Performed By: #### C BC #### [facility] [address] [place] [address] Dr. Helen Morrison PLT 247 103/ul Normal 150-450 [facility] Comment on above: Performed By: #### C BC #### [facility] [address] [place] [address] Dr. Helen Morrison RBC 3.90 106/ul Critically low 4.20-5.40 [facility] Comment on above: Performed By: #### C BC #### [facility] [address] [place] [address] Dr. Helen Morrison WBC 7.2 103/ul Normal 4.0-11.0 [facility] Comment on above: Performed By: #### C BC #### [facility] [address] [place] [address] Dr. Helen Morrison CULTURE URINEon 12-14-2022 CULTURE URINE Culture Observations : NO GROWTH. Normal [facility] Comment on above: Performed By: #### U RCX #### [facility] [address] [place] [address] Dr. Helen Morrison GLYCOHEMOGLOBIN A1Con 2022 ADA RECOMMENDATION SEE BELOW Normal [facility] Comment on above: Result Comment: ADA RECOMMENDED LIMIT 4.0 - 6.0 ADA THERAPEUTIC TARGET < 7.0 ACTION SUGGESTED > 7.0 Performed By: #### A 1C #### [facility] [address] [address] [address] Helen Morrison Glucose [Mass/Vol] 100 mg/dL Normal [facility] Comment on above: Performed By: #### A 1C #### [facility] [address] [address] [address] Helen Morrison HbA1c (Bld) [Mass fraction] 5.1 % Normal 4.5-6.2 [facility] Comment on above: Performed By: #### A 1C #### [facility] [address] [address] [address] Helen Morrison TSHon 12-14-2022 TSH 1.025 uIU/mL Normal 0.358-3.740 [facility] Comment on above: Performed By: #### T SH #### [facility] [address] [place] [address] Dr. Helen Morrison TYPE AND SCREENon 12-14-2022 TYPE AND SCREEN Negative Normal [facility] Comment on above: Performed By: #### T NS #### [facility] [address] [place] [address] Dr. Helen Morrison US PREG TVon 11-22-2022 US PREG TV EXAMINATION: US PREG TV HISTORY: Missed period COMPARISON: No relevant comparison available. FINDINGS: GESTATIONAL SAC: Present and normal appearing. YOLK SAC: Present and normal appearing. POLE: Present and normal appearing. CARDIAC: Present. UTERUS: Small subchorionic hematoma, 2.0 x 0.9 0.7 cm. OVARIES: Right: Normal. Left: Not seen. CERVIX: 5.2 cm in length and closed. CUL-DE-SAC: Normal. OTHER: None. AGE BY LMP: 7 weeks 5 days DELIA BY LMP: 07/06/2023 AGE BY US CRL: 6 weeks 6 days DELIA BY US CRL: 07/12/2023 IMPRESSION: 1. Single live intrauterine . 2. Small subchorionic hematoma. Electronically authenticated by: JENIFER OCONNELL Date: 2022-11-22 15:37 Normal [facility] Throat Cultureon 11-28-2021 Throat culture Reason for Exam Contact with and (suspected) exposure to other viral communi Throat Reason for Exam: Contact with and (suspected) exposure to other viral communi : Throat Heavy Normal Respiratory Latonya 2 Days PERFORMED BY: [address] [id number] PATHOLOGIST HARD TILE SETTER PUJA VALENTINE M.D. Normal [facility] Comment on above: Performed By: #### C CA #### [address] Progress Noteon 09-24-2017 Job Interviewer Authentication Interface Message Text CHIEF COMPLAINT: clubfoot evaluation.HISTORY OF PRESENT ILLNESS: Lurdes Yusuf is a 27 y.o.-year-old femalewho is with her first child. She has been seen at her local [facility]GYNoffice and her baby has been diagnosed as having a clubfoot by ultrasoundwithout any other abnormalities identified. She has been sent to my office forfurther evaluation and management. Lurdes reports that her so farhas been going quite well and she has not had any complications. There is afamily history of clubfoot in a maternal great uncle. Otherwise, she has had achance to look up some information about clubfoot, specifically Ponseti methodand feels quite up to date in that regard.REVIEW OF SYSTEMS:Review of systems is negative for other significant musculoskeletal pain, lossof vision, hearing loss, high blood pressure, shortness of breath, skin ulcers,paresthesia, lymphedema, temperature intolerance, or nausea, unless otherwisestated in the history of present illness or past medical history. No FH of DDH.X-RAYS: I reviewed the ultrasound from her last visits with the ob/gynindicating an isolated L clubfoot on the fetus with no other abnormalitiesidentifie d.DIAGNOSIS/IMPRESSION : clubfoot.DISCUSSION/TR EATMENT PLAN: At this time, I discussed Ponseti method clubfoottreatment at length with Lurdes including casting, possible tenotomy,long-term bracing, possible anterior tibial tendon transfer and long-termoutlook. All of her questions were answered today and she agrees to comply withfull Ponseti method treatment including all of the above named treatmentsespecially bracing until at least age 3. Lurdes is due in October and I willhave her contact my office after the baby is born for an evaluation appointmentafter discharge from the hospital. I certainly would be happy to speak withthem sooner should they have any questions. I will likely institute her baby sPonseti casting shortly thereafter once I have had a chance to see the babyafter and complete a full orthopaedic evaluation. Counseling and/orcoordination of care was greater than 20 minutes which is more than 50% of thetotal time of 20 minutes spent on the encounter. Normal [facility] Vital Signs Date Time Vital Sign Value Performing Clinician Facility 08-18-2024 08:34-0500 Body mass index (BMI) [Ratio] 26.23 kg/m2 Alesha ESCOBAR Work Phone: [facility] 08-18-2024 08:34-0500 Body weight 62.96 kg Alesha ESCOBAR Work Phone: [facility] 08-18-2024 08:34-0500 Diastolic blood pressure 70 mm[Hg] Alesha ESCOBAR Work Phone: [facility] 08-18-2024 08:34-0500 Systolic blood pressure 120 mm[Hg] Alesha ESCOBAR Work Phone: [facility] 11-13-2023 12:54-0400 Body height 152.4 cm Brooke Hicks MD Work Phone: [facility] 11-13-2023 12:54-0400 Body mass index (BMI) [Ratio] 28.71 kg/m2 Brooke Hicks MD Work Phone: [facility] 11-13-2023 12:54-0400 Body weight 66.68 kg Brooke Hicks MD Work Phone: [facility] 11-13-2023 12:54-0400 Diastolic blood pressure 79 mm[Hg] Brooke Hicks MD Work Phone: [facility] 11-13-2023 12:54-0400 Systolic blood pressure 124 mm[Hg] Brooke Hicks MD Work Phone: [facility] 10-29-2023 09:01-0500 Body height 152.4 cm Henna Hodge APRN-KARINA Work Phone: [employer] 10-29-2023 09:01-0500 Body mass index (BMI) [Ratio] 28.4 kg/m2 Henna Hodge APRN-COSMETOLOGY EDUCATOR Work Phone: [facility] 10-29-2023 09:01-0500 Body temperature 98.71 [degF] Henna Hodge APRN-COSMETOLOGY EDUCATOR [email or web address] 10-29-2023 09:01-0500 Body weight 65.95 kg Henna Hodge APRN-COSMETOLOGY EDUCATOR [email or web address] 10-29-2023 09:01-0500 Diastolic blood pressure 70 mm[Hg] Henna Hodge APRN-COSMETOLOGY EDUCATOR [email or web address] 10-29-2023 09:01-0500 Heart rate 68 /min Henna Hodge APRN-COSMETOLOGY EDUCATOR [email or web address] 10-29-2023 09:01-0500 Respiratory rate 20 /min Henna Hodge APRN-COSMETOLOGY EDUCATOR [email or web address] 10-29-2023 09:01-0500 SaO2% (BldA) [Mass fraction] 97 % Henna Hodge APRN-COSMETOLOGY EDUCATOR Work Phone: [employer] 10-29-2023 09:01-0500 Systolic blood pressure 110 mm[Hg] Henna Hodge APRN-COSMETOLOGY EDUCATOR Work Phone: [employer] 11-28-2021 15:15-0400 Body height 153.67 cm Sima Logan Other [facility] Other 11-28-2021 15:15-0400 Body mass index (BMI) [Ratio] 25.93 kg/m2 Sima Logan Other [facility] Other 11-28-2021 15:15-0400 Body temperature 98.4 [degF] Sima Logan Other [facility] Other 11-28-2021 15:15-0400 Body weight 61.24 kg Sima Logan Other [facility] Other 11-28-2021 15:15-0400 Respiratory rate 18 /min Sima Logan Other [facility] Other 11-28-2021 15:15-0400 SaO2% (BldA) [Mass fraction] 98 % Sima Logan Other [facility] Other Encounters Encounter Date Encounter Type Care Provider Facility Start: 08-18-2024 End: 08-18-2024 Bamboo flowsheet Alesha ESCOBAR Work Phone: [facility] Start: 08-18-2024 End: 08-18-2024 Bamboo flowsheet Alesha ESCOBAR Work Phone: [facility] Start: 08-18-2024 End: 08-18-2024 Office outpatient visit 15 minutes Alesha ESCOBAR Work Phone: [facility] Comment on above: Breast lump on right side at 11 o'clock position; Encounter for initial prescription of contraceptive pills Start: 03-09-2024 End: 03-09-2024 ambulatory [facility] Facility:[facility] Start: 03-09-2024 End: 03-09-2024 Patient encounter procedure Junior PEDRO [facility] Start: 12-16-2023 End: 12-17-2023 ambulatory [facility] Start: 12-16-2023 Encounter for genera l adult medical [facility] Start: 12-16-2023 End: 12-16-2023 ambulatory [facility] Start: 12-16-2023 Encounter for genera l adult medical examination without abnormal findings [facility] Start: 11-13-2023 End: 11-13-2023 ambulatory [facility] Start: 11-13-2023 End: 11-13-2023 Office outpatient new 30 minutes Brooke Hicks MD Work Phone: [facility] Comment on above: Gallbladder sludge ( Primary Dx); Epigastric pain Start: 11-06-2023 Orders Only [place] Elfego mays TUNNEL WORKER-COSMETOLOGY EDUCATOR [facility] Comment on above: Gallbladder sludge ( Primary Dx); Epigastric pain Start: 11-04-2023 End: 11-05-2023 ambulatory [facility] Start: 10-30-2023 ambulatory [facility] Facili ty:[facility] Start: 10-29-2023 End: 10-29-2023 ambulatory [facility] Start: 10-29-2023 End: 10-29-2023 Office outpatient new 30 minutes Henna J Naveen TUNNEL WORKER-COSMETOLOGY EDUCATOR [facility] Comment on above: Kidney stones (Prima ry Dx); Epigastric pain Start: 08-05-2023 End: 08-05-2023 ambulatory ALESHA JOY Not Available Start: 12-19-[address] BASILIO RADFORD . Facili ty:[facility] Start: 12-14-2022 End: 12-15-[address] BASILIO RADFORD . Facility:[facility] Start: 11-22-2022 End: 11-23-[address] BASILIO RADFORD . Facility:[facility] Start: 12-04-2021 End: 12-04-2021 ambulatory Sima Logan Other [facility] Other Start: 12-04-2021 Telephone encounter Sima Logan [facility] [address] Start: 11-28-2021 End: 11-28-2021 ambulatory Sima Logan Other [facility] Other Start: 11-28-2021 Office outpatient vi sit 25 minutes Sima Logan [facility] Start: 09-24-2017 End: 09-24-2017 [address] [facility] Procedures Date Procedure Procedure Detail Performing Clinician Start: 10-29-2023 Adult depression scr eening assessment Henna Naveen [employer] Work Phone: Start: 01-31-2023 Microscopic observat ion [Identifier] in Cervix by Cyto stain Henna Hodge [employer] Work Phone: Cervical biopsy Junior MANDEL Colonoscopy Junior PEDRO Plan of Treatment Date Care Activity Detail Author Start: 07-31-2032 DTaP,Tdap and Td Vaccines (2 - Td or Tdap) DTaP,Tdap and Td Vaccines (2 - Td or Tdap) [facility] Start: 04-18-2028 Screening for malign ant neoplasm of cervix [facility] Start: 01-31-2026 Screening for malign ant neoplasm of cervix Pap Smear [facility] Start: 10-29-2024 Adult BMI Follow Up Plan Adult BMI Follow Up Plan [facility] Start: 10-29-2024 Adult BMI Screening Adult BMI Screen ing [facility] Start: 10-29-2024 Depression Screening Depression Scre ening [facility] Start: 10-29-2024 Tobacco Screening Tobacco Screening [facility] Start: 09-15-2024 End: 09-15-2024 Patient encounter procedure 09/15/2024 8:30 AM EST Office Visit [facility] [address] [phone] Alesha Joy PA [address] [place] [address] [facility] Start: 08-18-2024 End: 10-19-2025 MG Breast - bilateral Diagnostic Bilateral diagnostic mammogram Imaging Routine Breast lump on right side at 11 o'clock position Expected: 08/18/2024 (Approximate), Expires: 10/19/2025 [facility] Work Phone: Comment on above: Expected: 08/18/2024 (Approximate), Expires: 10/19/2025 Start: 08-18-2024 End: 08-18-2024 Patient encounter procedure 08/18/2024 8:30 AM EST Office Visit [facility] [address] [place] [address] Alesha Joy PA [address] [place] [address] Arrived [facility] Comment on above: Arrived Start: 05-03-2024 Influenza vaccination Influenza Vacc ine (#1) [facility] Start: 12-16-2023 End: 12-16-2023 Patient encounter procedure 12/16/2023 9:40 AM EDT [facility] [address] [place] [phone] Henna Hodge, TUNNEL WORKER-[facility] [address] [place] [address] [facility] Start: 10-29-2023 End: 10-29-2024 US Abdomen limited Ultrasound abdomen limited Imaging Routine Epigastric pain Expected: 10/29/2023, Expires: 10/29/2024 [facility] Work Phone: Comment on above: Expected: 10/29/2023 , Expires: 10/29/2024 Start: 05-03-2023 COVID-19 Vaccine () COVID-19 Vaccine () [facility] Start: 05-03-2023 Influenza vaccination Influenza Vacc ine [facility] End: 11-12-2024 Basic metabolic 2000 panel - Serum or Plasma Basic Metabolic Panel Lab Routine Epigastric pain 1 Occurrences starting 11/13/2023 until 11/12/2024 [facility] Comment on [facility]: 1 Occurrences starti ng 11/13/2023 until 11/12/2024 End: 11-12-2024 CBC W Auto Differential panel - Blood CBC auto differential Lab Routine Epigastric pain 1 Occurrences starting 11/13/2023 until 11/12/2024 [facility] Work Phone: Comment on above: 1 Occurrences starti ng 11/13/2023 until 11/12/2024 End: 11-12-2024 Lipase [Enzymatic activity/volume] in Serum or Plasma Lipase Lab Routine Epigastric pain 1 Occurrences starting 11/13/2023 until 11/12/2024 [facility] Comment on above: 1 Occurrences starti ng 11/13/2023 until 11/12/2024 End: 11-12-2024 Liver panel Liver panel Lab Routine Epigastric pain 1 Occurrences starting 11/13/2023 until 11/12/2024 [facility] Comment on above: 1 Occurrences starti ng 11/13/2023 until 11/12/2024 Immunizations Immunization Date Immunization Notes Care Provider [facility] 07-24-2021 influenza virus vaccine, unspecified formulation Henna VENTURA Work Phone: [facility] Payers Date Payer Category Payer Medicaid [id number] 2023 Medicaid [id number] 2023 Unknown [employer] YASMIN DEVON LEIDAJose Alejandro SHANTA [id number] 2023-Present [phone] [address] [place] [address] [id number] 2022 Private Health Insurance KRISTIN BARAJAS [id number] 2022 Unknown [id number] 1989 Unknown [id number]. 593 1989 Unknown [id number]. 593 1989 Unknown [id number]. 593 1989 Unknown [id number]. 1259 1989 Unknown [id number] [id number]. 1286 1989 Unknown [id number]. 1286 1989 Unknown [id number]. 1286 1989 Unknown [id number]. 1286 1989 Unknown [id number] 1286 1959 Self-pay [id number] 1960 Unknown [id number] Social History Date Type Detail Facility Unknown if ever smoked [facility] Other Start: 10-29-2023 End: 08-18-2024 Sex Assigned At [facility] [employer] Other Start: 02-27-2023 End: 10-29-2023 Tobacco smoking status NHIS [facility] smoked tobacco [facility] Start: 10-29-2023 End: 08-18-2024 History of Social function [facility] Adolescent depressio n screening assessment 0 [facility] [employer] [facility] Start: 1990 Sex Assigned At Not on file P [employer] [facility] Start: 11-13-2023 End: 08-18-2024 Alcohol intake Lifetime non-drinker (finding) [facility] Tobacco smoking status No Smokin g Status Entered [facility] [employer] Clinical Notes 11-28-2021 to 08-18-2024 SHAWN Abdullahi - 08/18/2024 8:30 AM Gab Hicks MD - 11/13/2023 1:00 PM Gaurav Hodge APRN-COSMETOLOGY EDUCATOR - 10/29/2023 9:00 AM EST Note Date & Type Note Facility 08-18-2024 History of Present illness Narrative Images from the original note were not included. Reason for Appointment: Patient ID: Lurdes Yusuf is a 33 y.o. female who presents for Breast Problem Patient presents today for Breast problem MEDICATIONS Current Outpatient Medications Medication Instructions cephalexin (KEFLEX) 500 mg, Oral, 3 times daily norethindrone-ethinyl estradiol-iron (Lo Loestrin Fe) 1 MG-10 MCG / 10 MCG tablet 1 tablet, Oral, Daily, Take 1 tablet by mouth daily ALLERGIES Allergies Allergen Reactions Sulfa Antibiotics Rash PROBLEMS Active Ambulatory Problems Diagnosis Date Noted No Active Ambulatory Problems Resolved Ambulatory Problems Diagnosis Date Noted No Resolved Ambulatory Problems Past Medical History: Diagnosis Date History of migraine headaches HISTORY PAST MEDICAL HISTORY SOCIAL HISTORY Past Medical History: Diagnosis Date History of migraine headaches Social History Tobacco Use Smoking status: Never Smokeless tobacco: Not on file Substance Use Topics Alcohol use: Never Drug use: Never FAMILY HISTORY Family History Problem Relation Name Age of Onset Thyroid disease Mother Diabetes Father Hypertension Father No Known Problems Son SURGICAL HISTORY Past Surgical History: Procedure Laterality Date CERVICAL BIOPSY W/ LOOP ELECTRODE EXCISION 2013 REVIEW OF SYSTEMS Review of Systems: Review of Systems Constitutional: Negative. HENT: Negative. Eyes: Negative. Respiratory: Negative. Cardiovascular: Negative. Gastrointestinal: Negative. Genitourinary: Negative. Musculoskeletal: Negative. Skin: Negative. Neurological: Negative. All other systems reviewed and are negative. Hematological: Negative. Endocrine: Negative. Allergic/Immunologic: Negative. OBJECTIVE Objective: Physical Exam Constitutional: Appearance: Normal appearance. She is well-developed. Genitourinary: Genitourinary Comments: Small laceration with drainage to the right nipple, freely mobile cyst at the 11 o clock position favoring fibrocystic changes Right Adnexa: not tender and no mass present. Left Adnexa: not tender and no mass present. No cervical discharge. Breasts: Breasts are soft. Right: Nipple discharge and skin change present. Left: Normal. HENT: Head: Normocephalic. Nose: Nose normal. Mouth/Throat: Mouth: Mucous membranes are moist. Cardiovascular: Rate and Rhythm: Normal rate and regular rhythm. Pulmonary: Effort: Pulmonary effort is normal. Breath sounds: Normal breath sounds. Chest: Abdominal: General: Bowel sounds are normal. There is no distension. Palpations: Abdomen is soft. Tenderness: There is no abdominal tenderness. There is no guarding or rebound. Musculoskeletal: General: No swelling. Normal range of motion. Cervical back: Normal range of motion. Right lower leg: No edema. Left lower leg: No edema. Neurological: General: No focal deficit present. Mental Status: She is alert and oriented to person, place, and time. Skin: General: Skin is warm and dry. Psychiatric: Mood and Affect: Mood normal. Behavior: Behavior normal. Vitals and nursing note reviewed. Exam conducted with a teacher's aide present. Vitals: Estimated body mass index is 26.23 kg/m as calculated from the following: Height as of 01/31/23: 5' 1 . Weight as of this encounter: 138 lb 12.8 oz. BP: 120/70 No LMP recorded (within weeks). ASSESSMENT & PLAN ICD-10-CM 1. Breast lump on right side at 11 o'clock position N63.11 Bilateral diagnostic mammogram cephalexin (Keflex) 500 MG capsule Bilateral diagnostic mammogram 2. Encounter for initial prescription of contraceptive pills Z30.011 norethindrone-ethinyl estradiol-iron (Lo Loestrin Fe) 1 MG-10 MCG / 10 MCG tablet Patient presents today for Breast problem on the right side. Patient does experience some pain and discomfort from under the armpit that radiates inward. Patient has nipple changes with drainage, denies known injury or trauma small laceration noted to the 11 oclock position of the nipple with freely mobile cyst noted favoring fibrocystic changed. Patient has never had a mammogram ordered. Diagnostic mammogram for palpable lump and nipple changes with discharge. Patient was give mammogram order and antibiotic for nipple drainage. Patient also asking about control and a script sent in for her. Documented by Berenice Yao LPN on behalf of: SHAWN Abdullahi documented in this encounter [facility] 11-13-2023 History of Present illness Narrative Images from the original note were not included. Chief Complaint: Epigastric pain History of Present Illness: Radha Yusuf is a 33 y.o. female presents to the office with epigastric pain. She 1st developed the symptoms while . She gave 5 months ago. She reports epigastric pain that is brought on by greasy and fatty foods. Approximately 10-15 minutes after eating a greasy meal, she develops epigastric pain that she feels under her ribcage or breast. She also feels the pain at her right shoulder blade. She states that this occurs 6/7 times out of 10 when she eats any fatty meal. The pain usually lasts for 20-30 minutes. She feels as though it could be gas pains, as pain is relieved after she passes gas or has diarrhea. She denies any nausea or vomiting. She denies any fevers or chills. She notes heartburn. Her family doctor placed her on a PPI, this has improved her heartburn symptoms. She has avoided fatty or greasy foods with improvements in her symptoms. Ultrasound of the gallbladder was obtained gallbladder sludge. Her past medical history includes GERD for which she takes PPI. She has a nonsmoker. Past surgical history includes LEEP. She is a uyjg-cf-rfli mom. HPI Review of Systems Constitutional: Negative for fever and chills. Respiratory: Negative for shortness of breath. Cardiovascular: Negative for chest pain and palpitations. Gastrointestinal: Positive for abdominal pain and diarrhea. Negative for nausea and vomiting. Genitourinary: Negative for dysuria and difficulty urinating. Skin: Negative for rash and wound. Allergic/Immunologic: Negative for immunocompromised state. Neurological: Negative for weakness and light-headedness. Hematological: Does not bruise/bleed easily. Psychiatric/Behavioral: Negative for behavioral problems and confusion. Past Medical History: Diagnosis Date Anemia Migraine Past Surgical History: Procedure Laterality Date CERVICAL BIOPSY W/ LOOP ELECTRODE EXCISION 07/2014 COLPOSCOPY 2011 Allergies Allergen Reactions Sulfa (Sulfonamide Antibiotics) Rash Current Outpatient Medications: omeprazole (PriLOSEC) 40 mg capsule, Take 1 capsule (40 mg total) by mouth in the morning., Disp: 30 capsule, Rfl: 3 Social History Socioeconomic History Marital status: Spouse name: Not on file Number of children: Not on file Years of education: Not on file Highest education level: Not on file Occupational History Not on file Tobacco Use Smoking status: Never Smokeless tobacco: Not on file Vaping Use Vaping Use: Never used Substance and Sexual Activity Alcohol use: Never Drug use: Never Sexual activity: Yes Partners: Male Other Topics Concern Not on file Social History Narrative Not on file Social Determinants of Health Financial Resource Strain: Not on file Food Insecurity: No Food Insecurity (11/13/2023) Hunger Screening Food Insecurity - Worry: Never True Food Insecurity - Inability: Never True Transportation Needs: Not on file Physical Activity: Not on file Stress: Not on file Social Connections: Not on file Interpersonal Safety: Not on file Housing Instability: Not on file Family History Problem Relation Age of Onset Thyroid Issues Mother Diabetes Father Hypertension Father Physical Exam Vitals reviewed. Constitutional: Appearance: Normal appearance. HENT: Head: Normocephalic and atraumatic. Eyes: Pupils: Pupils are equal, round, and reactive to light. Cardiovascular: Rate and Rhythm: Normal rate. Pulmonary: Effort: Pulmonary effort is normal. Abdominal: General: There is no distension. Palpations: Abdomen is soft. Tenderness: There is no abdominal tenderness. Musculoskeletal: General: No swelling. Skin: General: Skin is warm and dry. Neurological: Mental Status: She is alert and oriented to person, place, and time. Mental status is at baseline. Psychiatric: Mood and Affect: Mood normal. Behavior: Behavior normal. Vital Signs: Blood pressure 124/79, height 152.4 cm (5'), weight 66.7 kg (147 lb), unknown if currently . Respiratory Source: No data recorded Admission Weight: Weight: 66.7 kg (147 lb) Labs: No results found for: WBC , HGB , HCT , MCV , PLT No results found for: GLU , CALCIUM , NA , K , CO2 , CL , BUN , CREATININE No results found for: AMYLASE No results found for: LIPASE No results found for: ALT , AST , GGT , ALKPHOS , LABBILI No results found for: INR , PROTIME Imaging: Ultrasound abdomen limited History: Epigastric pain. Gas and bloating. Exam/Technique: Right upper quadrant ultrasound with color doppler. Comparison: None Findings: Small amount of echogenic material, with biliary sludge, is displayed. The gallbladder otherwise appears normal with no evidence of calculi or other imaging abnormalities and no tenderness localizable to the gallbladder during scanning. There is no intra- or extrahepatic biliary dilatation. The liver appears grossly normal in overall size, contour and echogenicity with no evidence of focal lesions. The pancreas is fairly well seen in its entirety with no abnormalities demonstrated. On scanning of the right upper quadrant no hydronephrosis or other gross abnormalities of the right kidney are displayed. IMPRESSION: Small amount of sludge displayed in the gallbladder with no calculi. Otherwise negative ultrasound of the right upper quadrant Finalized by Maverick Clarke MD on 11/04/2023 11:28 AM Assessment: Radha Yusuf is a 33 y.o.female with biliary colic. Gallbladder sludge [K82.8] Plan: I recommended MIS cholecystectomy, possible open, possible IOC. She is hesitant to proceed with surgery at this time. She would like to try conservative management by avoiding fatty or greasy foods. She will return to the office or call if she wishes to proceed with surgical intervention. Evaluation included: Preparing to see the patient (e.g., review of tests) Obtaining and/or reviewing separately obtained history Performing a medically appropriate examination and/or evaluation Counseling and educating the patient/family/caregiver Referring and communicating with other health after school caregiver Brooke Hicks MD [facility] General Surgery [place] documented in this encounter [facility] 11-05-2023 Hospital Discharge instructions Follow Up Care 11/05/2023 11:20:16 With:MAYELA KNOWLES, Junior Blount, OGL Address: [facility] [address], [place] [address] [phone] When: Unknown [facility] [place] 10-29-2023 History of Present illness Narrative Images from the original note were not included. [address] [place] [address] SUBJECTIVE: Patient ID: Radha Yusuf is a 33 y.o. female. Chief Complaint Patient presents with new patient Presents for new patient establishment. She is 4 months post . She also has a 4 year old. . Chief concerns today is she is passing small kidney stones. Last stone passed was last Saturday. She believes she has passed about 5 over the last 3 months. Has not been seen by urology but is requesting a referral for further evaluation. Denies flank pain or hematuria today. Additional concern today is upper abdominal and epigastric pain when eating fatty or fried foods. No further testing, such as US done. Has gallbladder. She does not believe abdominal pain and GERD symptoms are associated with kidney stones. Flank Pain This is a recurrent problem. The current episode started more than 1 month ago. The problem occurs intermittently. The problem has been waxing and waning since onset. Associated symptoms include abdominal pain. Pertinent negatives include no chest pain, dysuria, fever, headaches, pelvic pain or weight loss. Abdominal Pain This is a recurrent problem. The current episode started more than 1 month ago. The onset quality is undetermined. The problem occurs intermittently. The problem has been waxing and waning. The pain is located in the RUQ, left flank, epigastric region and LUQ. The pain is at a severity of 5/10. The pain is moderate. The quality of the pain is colicky, sharp and cramping. The abdominal pain radiates to the epigastric region. Associated symptoms include belching, diarrhea, flatus and nausea. Pertinent negatives include no anorexia, arthralgias, dysuria, fever, frequency, headaches, hematochezia, hematuria, melena, myalgias, vomiting or weight loss. The pain is aggravated by eating. The pain is relieved by Belching and passing flatus. She has tried nothing for the symptoms. The treatment provided no relief. The following portions of the patient's history were reviewed and updated as appropriate: allergies, current medications, past family history, past medical history, past social history, past surgical history and problem list. Past Surgical History: Procedure Laterality Date CERVICAL BIOPSY W/ LOOP ELECTRODE EXCISION 07/2014 COLPOSCOPY 2011 Past Medical History: Diagnosis Date Anemia Migraine Immunization History Administered Date(s) Administered COVID-19, mRNA, LNP-S, PF, 100mcg/0.5mL Dose 07/24/2021, 08/23/2021 REVIEW OF SYSTEMS: Review of Systems Constitutional: Negative for chills, fever and weight loss. HENT: Negative. Eyes: Negative for visual disturbance. Respiratory: Negative for chest tightness and shortness of breath. Cardiovascular: Negative for chest pain and palpitations. Gastrointestinal: Positive for abdominal pain, diarrhea, flatus and nausea. Negative for anorexia, hematochezia, melena and vomiting. Endocrine: Negative. Genitourinary: Positive for flank pain. Negative for dysuria, frequency, hematuria, menstrual problem and pelvic pain. Musculoskeletal: Negative for arthralgias and myalgias. Skin: Negative. Allergic/Immunologic: Negative. Neurological: Negative for syncope, facial asymmetry and headaches. Hematological: Does not bruise/bleed easily. Psychiatric/Behavioral: Negative. PHYSICAL EXAMINATION: Vitals: 10/29/23 0901 BP: 110/70 BP Site: Left Arm BP Postition: Sitting Pulse: 68 Resp: 20 Temp: 37.1 C (98.7 F) TempSrc: Oral SpO2: 97% Weight: 66 kg (145 lb 6.4 oz) Height: 152.4 cm (5') Patient noted to have elevated BMI and the following intervention(s) were applied: encouragement to exercise. Physical Exam Vitals and nursing note reviewed. Constitutional: General: She is not in acute distress. Appearance: She is well-developed. She is not diaphoretic. HENT: Head: Normocephalic and atraumatic. Right Ear: Tympanic membrane and external ear normal. Left Ear: Tympanic membrane and external ear normal. Nose: Nose normal. Mouth/Throat: Mouth: Mucous membranes are moist. Pharynx: No oropharyngeal exudate. Eyes: General: Right eye: No discharge. Left eye: No discharge. Conjunctiva/sclera: Conjunctivae normal. Pupils: Pupils are equal, round, and reactive to light. Neck: Thyroid: No thyromegaly. Vascular: No JVD. Cardiovascular: Rate and Rhythm: Normal rate and regular rhythm. Heart sounds: Normal heart sounds. No murmur heard. No friction rub. No gallop. Pulmonary: Effort: Pulmonary effort is normal. Breath sounds: Normal breath sounds. Abdominal: General: Bowel sounds are normal. There is no distension. Palpations: Abdomen is soft. There is no mass. Tenderness: There is no abdominal tenderness. Musculoskeletal: General: Normal range of motion. Cervical back: Normal range of motion and neck supple. Lymphadenopathy: Cervical: No cervical adenopathy. Skin: General: Skin is warm and dry. Capillary Refill: Capillary refill takes less than 2 seconds. Neurological: Mental Status: She is alert and oriented to person, place, and time. Deep Tendon Reflexes: Reflexes are normal and symmetric. Psychiatric: Mood and Affect: Mood normal. Behavior: Behavior normal. Thought Content: Thought content normal. Judgment: Judgment normal. ASSESSMENT/PLAN: Radha was seen today for new patient. Diagnoses and all orders for this visit: Kidney stones - Ambulatory referral to Urology (Non-[facility]); Future Epigastric pain - Ultrasound abdomen limited; Future - omeprazole (PriLOSEC) 40 mg capsule; Take 1 capsule (40 mg total) by mouth in the morning. Increase fluids. Last passed kidney stone was last Saturday. Has passed up to 5 so far over the last several months. She is asymptomatic today. Referral to urology for further evaluation Epigastric pain Associated with eating fried or high fat foods. Limit or avoid trigger foods and beverages. Consider weight loss. US abdomen Start omeprazole 40 mg oral daily Body mass index is 28.4 kg/m . Patient noted to have elevated BMI and the following intervention(s) were applied: Discussed current weight today. Consider healthy food choices, portion control. Avoid sugary beverages and high concentrated sweets. Routine exercise regimen encouraged. ALL QUESTIONS ANSWERED Total time spent was 40 minutes: Preparing to see the patient (e.g., review of tests) Obtaining and/or reviewing separately obtained history Performing a medically appropriate examination and/or evaluation Counseling and educating the patient/family/caregiver Ordering medications, tests, or procedures Follow-up: 6 weeks Annual LORENZO Perales 10/29/23 0950 documented in this encounter [facility] 11-28-2021 Evaluation note Encounter Date Diagnosis Assessment Notes Oct, Acute tonsillitis, unspecified etiology (ICD-10 - J03.90) Discussed diagnosis with patient. Advised that rapid Strep test was negative today. Throat culture obtained. Will call with results in 2-5 days. Advised patient at time of results, treatment plan may change. Will start antibiotic for bacterial coverage. Instructed to take antibiotic as directed, complete entire course even if feeling better. Allergies and recent antibiotics reviewed. Advised that patient is contagious for 24 hours after starting antibiotic, work/school note provided. Discussed good hand hygiene and infection control. New tooth brush and wash linens after 2-3 days of being on antibiotic to prevent reinfection. Discussed supportive care, push fluids and rest, eat soft foods and liquids that are easy to swallow, use throat lozenges and warm salt water gargles, Tylenol/Motrin as needed for fever or discomfort. Symptoms should improve in the next 48 hours, eval by PCP or UC if symptoms have not improved with treatment. Immediate eval if difficultly managing oral secretions, drooling, unilateral neck swelling, hot potato voice, persistent fever, neck pain/stiffness, severe headache, lethargy or any new or concerning symptoms arise. Patient verbalizes understanding and is agreeable to treatment plan Oct, Contact with and (suspected) exposure to other viral communicable diseases (ICD-10 - Z20.828) Oct, Other Additional time spent conducting pre-visit phone call, screening for symptoms, instructions on social distancing, application and removal of PPE, and cleaning of examination room, equipment and supplies was preformed. Patient education given for testing methodology and results. Patient care instructions given in writting by [facility] Care At Home document. Spor Other Evaluation + Plan note No data available for this section [facility] evaluation noteNo InformationNortSurgical Special[facility] Other Evaluation note* Diagnosis Kidney stones- Primary Calculus of kidney Epigastric pain Abdominal pain, epigastric documented in this encounter [facility] System[facility]* Diagnosis Gallbladder sludge- Primary Epigastric pain Abdominal pain, epigastric documented in this encounter [facility] SystemEvaluation note* Diagnosis Gallbladder sludge- Primary Epigastric pain Abdominal pain, epigastric documented in this encounter [facility] System[facility]* Diagnosis Breast lump on right side at 11 o'clock position Lump or mass in breast Encounter for initial prescription of contraceptive pills documented in this encounter [facility] Narrative - Reported* Type Description Date Surgical History LEEP Hospitalization History see above [place] [employer] Other Instructions* Attachments The following attachments cannot be sent through Care Everywhere. * Abdominal pain ([place]i) * Kidney Stone Diet ([place]i) documented in this encounterPro[facility] SystemInstructionsNot on file documented in this encounterProMediGreentech Media SystemInstructionsNot on file documented in this encounterProTrihealth Bet[facility] HospitalGreentech Media SystemProgress note No data available for this section [facility] reason for referral (narrative)* Consultation (Routine) - Pending Review Specialty Diagnoses / Procedures Referred By Johnny guillermo Referred To Contact Urology Diagnoses Kidney stones Henna Hodge APRN-COSMETOLOGY EDUCATOR [address] [place] [address] Fermin Kumar MD [address] [place] [address] Referral ID Status Reason Start Date Expiration Date Visits Requested Visits Authorized [id number] Pending Review Specialty Services Required 10/29/2023 10/28/2024 1 1 [facility] (narrative)* Consultation (Routine) - Pending Review Specialty Diagnoses / Procedures Referred By Johnny guillermo Referred To Contact General Surgery Diagnoses Gallbladder sludge Epigastric pain Henna Hodge, NICOL-COSMETOLOGY EDUCATOR [address] [place] [address] P[facility] Gen Surg Grillis Kurt [address] [place] [address] Referral ID Status Reason Start Date Expiration Date Visits Requested Visits Authorized [id number] Pending Review Specialty Services Required 11/06/2023 11/05/2024 1 1 [facility] Summary Purpose Family History No Family History Records FoundNo Family History Records FoundNo Family History Records FoundNo Family History Records FoundNo Family History Records FoundNo Family History Records FoundNo Family History Records Found No data available for this section No Family History Records Found Advance Directives No Advanced Directives Records FoundNo Advanced Directives Records FoundNo Advanced Directives Records FoundNo Advanced Directives Records FoundNo Advanced Directives Records FoundNo Advanced Directives Records FoundNo Advanced Directives Records FoundNo Advanced Directives Records Found Additional Source Comments INFORMATION SOURCE (unrecogn ized section and content) DATE CREATED AUTHOR 02/24/[address] [facility] DATE CREATED AUTHOR AUTHOR'S ORGANIZ ATION 12/15/2021 [facility] DATE CREATED AUTHOR AUTHOR'S ORGANIZ ATION 12/20/2022 [facility] DATE CREATED AUTHOR AUTHOR'S ORGANIZ ATION 08/07/2023 [facility] EPIC DATE CREATED AUTHOR AUTHOR'S ORGANIZ ATION 11/05/2023 [facility] DATE CREATED AUTHOR AUTHOR'S ORGANIZ ATION 12/16/2023 [facility] DATE CREATED AUTHOR AUTHOR'S ORGANIZ ATION 12/17/2023 [facility] DATE CREATED AUTHOR AUTHOR'S ORGANIZ ATION 03/17/2024 [facility] REASON FOR VISIT (unrecogniz ed section and content) Reason Comments new patient Reason Comments Cholelithiasis GALLBLADDER SLUDGE, EPIGASTRIC PAIN Heartburn Bloated Specialty Diagnoses / Procedures Referred By Johnny guillermo Referred To Contact General Surgery Diagnoses Gallbladder sludge Epigastric pain Henna Hodge, TUNNEL WORKER-COSMETOLOGY EDUCATOR [address] [place] [address] Pgs Gen Surg Sonya Hicks [address] [place] [address] Referral ID Status Reason Start Date Expiration Date Visits Requested Visits Authorized [id number] Pending Review Specialty Services Required 11/06/2023 11/05/2024 1 1 Reason Comments Breast Problem Care Teams (unrecognized sec tion and content) [employer] Inspector Relationship Specialty Start Date End Date Henna Hodge TUNNEL WORKER-COSMETOLOGY EDUCATOR [address] [place] [address] PCP - General Family Medicine 10/29/23 [employer] Inspector Relationship Specialty Start Date End Date Henna Hodge APRN-COSMETOLOGY EDUCATOR [address] [place] [address] PCP - General Family Medicine 10/29/23 [employer] Inspector Relationship Specialty Start Date End Date Henna Hodge TUNNEL WORKER-[facility] [address] [place] [address] PCP - General Family Medicine 10/29/23 [employer] Inspector Relationship Specialty Start Date End Date Sundar Todd MD [address] [place] [address] PCP - General Family Medicine 01/31/23 [employer] Inspector Relationship Specialty Start Date End Date Sundar Todd MD [address] [place] [address] (work) PCP - General Family Medicine 01/31/23 FOR RECORDS PERTAINING TO PATIENTS WHO ARE OR HAVE BEEN ENROLLED IN A CHEMICAL DEPENDENCY/SUBSTANCEABUSE PROGRAM, SOME INFORMATION MAY BE OMITTED. This clinical summary was aggregated from multiple sources. Caution should be exercised in using it in the provision of clinical care. This summary normalizes information from multiple sources, and as a consequence, information in this document may materially change the coding, format and clinical context of patient data. In addition, data may be omitted in some cases. CLINICAL DECISIONS SHOULD BE BASED ON THE PRIMARY CLINICAL RECORDS. [employer] [facility]. provides no warranty or guarantee of the accuracy or completeness of information in this document.
== END 2024-08-20 13:40 | disposition home or self-care (01) ==
LOC: MAMMO 13:39
PROVIDERS: Visit Provider Physician Assistant
DX: N63.11 Unspecified lump in the right breast, upper outer quadrant (principal); Z80.3 Family history of malignant neoplasm of breast
CPT/HCPCS: 76642; 77066; G0279

== ENCOUNTER 2025-08-10 10:16 | Outpatient (OUT) | payer MEDICAID, SELFPAY ==
--- OUTSIDE RECORDS SUMMARY | 2025-08-10 10:27 | XMS_ITS | CCD ---
Author Organization [facility] CliniSyia Care Team Providers Care Attendant [facility] Name Role Phone CLAUDIA FRENCH Unavailable Unavailable REFERRED, SELF Unavailable Unavailable NO PRIMARY CARE, Unavailable Unavailable Sima Logan Unavailable MALINA ., DR RICHMOND Attending Unavailable REQUEST, NONE LISTED Primary Care Unavaila ble MALINA ., DR RICHMOND Consulting Unavailable MALINA ., DR RICHMOND Admitting Unavailable ZIEBER, DR JENIFER Blount Consulting Unavailable MALINA ., DR RICHMOND Admitting Unavailable MALINA ., DR RICHMOND Attending Unavailable REQUEST, DR NONE LISTED Primary Care Unavaila ble MALINA ., DR RICHMOND Admitting Unavailable MALINA ., DR RICHMOND Attending Unavailable REQUEST, DR NONE LISTED Primary Care Unavaila ble MALINA ., DR RICHMOND Consulting Unavailable NAVEEN, HENNA J Referring Unavailable HODGE, HENNA J Primary Care Unavailable BROOKE HICKS Attending Unavailable HODGE, HENNA J Referring Unavailable HODGE, HENNA J Primary Care Unavailable HODGE, HENNA J Attending Unavailable HODGE, HENNA J Referring Unavailable HODGE, HENNA J Primary Care Unavailable FREDDY HODGEERIE J Attending Unavailable SUNDAR TODD Referring Unavailable HODGE, HENNA Mookie Primary Care Unavailable HODGE, HENNA J Referring Unavailable HODGE, HENNA J Primary Care Unavailable HODGE, HENNA Referring Unavailable Junior PEDRO Attending Unavailable Sundar Todd MD Primary Care Provider Alesha Joy PA-C Attending Provider [phone] Naveen MANNINGCHenna Primary Care Provider Naveen MANUFACTURING ASSISTANT-KARINA, Henna Damico Primary Care Provid er ALESHA JOY Attending Unavailable ALESHA JOY Attending Unavailable Henna Mathew Primary Care Provider Alesha Joy PA-C Attending Provider Alesha Joy Admitting Unavailable Alesha Joy Attending Unavailable Henna Hodge Primary Care Unavailable Alesha Joy Admitting Unavailable Alesha Joy Attending Unavailable Henna Hodge Primary Care Unavailable Sundar Todd MD Primary Care Provider Allergies Allergy ClassificationReported Allergen(s)Allergy TypeDate of OnsetReaction(s) Facility (9 sources)SULFA ANTIBIOTICS; Translations: [SULFA ANTIBIOTICS]Propensity to adverse reactions to drug (disorder)84-66-9414[facility]vF[facility] (2 sources)Sulfacetamide / SulfurDrug AllergyhiINFRARED IMAGING SYSTEMS Other (2 sources)Sulfonamides (Antibiotic)Drug allergy (disorder)36-81-4396[facility] (7 sources)Sulfonamides (Antibiotic); Translations: [SULFA (SULFONAMIDE ANTIBIOTICS)]Propensity to adverse reactions to drug (disorder)06-90-5786[facility] Repository (3 sources)Sulfacetamide; Translations: [sulfacetamide]Drug Bzolgzn15-34-2212 [facility] (3 sources)Sulfur; Translations: [sulfur]Drug Vflgnow99-51-4162zejesVdjwkwpuiUC [facility] Medications Current Medications MedicationDrug Class(es)DatesSig (Normalized)Sig (Original)aspirin 81 mg delayed release oral tablet (3 sources)Platelet Aggregation Inhibitor, Nonsteroidal Anti-inflammatory Drug End: 11-03-3180ahff 1 tablet by mouth in the morningaspirin 81 MG EC tablet Take 81 mg by mouth in the morning. 08/18/2024 Discontinuedcephalexin 500 mg oral capsule (2 sources)Cephalosporin AntibacterialStart: 08-18-2024 End: 34-99-3716yqjs 1 capsule by mouth in the morning, then take 1 capsule by mouth in the evening, then take 1 capsule by mouth at bedtimecephalexin (Keflex) 500 MG capsule Indications: Breast lump on right side at 11 o'clock position Take 1 capsule (500 mg) by mouth in the morning and 1 capsule (500 mg) in the evening and 1 capsule (500 mg) before bedtime. Do all this for 7 days. 21 capsule 08/18/2024 08/25/2024 ActiveEthinyl Estradiol / Ferrous fumarate / Norethindrone (9 sources)EstrogenStart: 11-04-2024 End: 33-41-0225osui 1 tablet by mouth once dailynorethindrone-ethinyl estradiol- iron (Lo Loestrin Fe) 1 MG-10 MCG / 10 MCG tablet Indications: Encounter for initial prescription of contraceptive pills Take 1 tablet by mouth Daily for 28 days Take 1 tablet by mouth daily 28 tablet 11 11/04/2024 12/02/2024 Active Start: 84-76-7375aydc 1 tablet by mouth once dailynorethindrone-ethinyl estradiol-iron (Lo Loestrin Fe) 1 MG-10 MCG / 10 MCG tablet Indications: Encou nter for initial prescription of contraceptive pills Take 1 tablet by mouth Daily for 28 days Take 1 tablet by mouth daily 28 tablet 08/18/2024 ActiveStart: 08-18-2024 End: 36-67-9889sgug 1 tablet by mouth once dailynorethindrone-ethinyl estradiol- iron (Lo Loestrin Fe) 1 MG-10 MCG / 10 MCG tablet Indications: Encounter for initial prescription of contraceptive pills Take 1 tablet by mouth Daily for 28 days Take 1 tablet by mouth daily 28 tablet 08/18/2024 09/15/2024 Active hydrocortisone 5 mg/ml topical cream (2 sources)CorticosteroidStart: 82-72-8636kvipfuangsyajr 0.5 % cream Indications: Rash, skin Apply topically 2 (two) times a day 28 g 11/04/2024 Activeomeprazole 40 mg delayed release oral capsule (5 sources)Proton Pump InhibitorStart: 10-29-2023 End: 53-80-7145cxzt 1 capsule by mouth in the morningomeprazole (PriLOSEC) 40 mg capsule Indications: Epigastric pain Take 1 capsule (40 mg total) by mouth in the morning. 90 capsule 2 12/16/2023 Activepenicillin v potassium 500 mg oral tablet (2 sources)Start: 77-53-6402evis 1 tablet by mouth every twelve hoursPenicillin V Potassium 500 MG 1 tablet Orally Twice a day for 10 day(s) Oct, Active Esuuftay-Tjp-Hq-FA ( 1 + IRON PO) (3 sources) End: 75-41-3351Tnswlqkf Sieqbpuz-Adr-Jb-FA ( 1 + IRON PO) 08/18/2024 DiscontinuedPrenatal Pqstinjk-Gup-Yo-FA ( 1 + IRON PO) ActivePrenatal Vit-Fe Fumarate-FA ( 1+1 PO) (3 sources) End: 16-66-0554otat 1 tablet by mouth in the morningPrenatal Vit-Fe Fumarate-FA ( 1+1 PO) Take 1 tablet by mouth in the morning. 08/18/2024 Discontinued take 1 tablet by mouth in the morningPrenatal Vit-Fe Fumarate-FA ( 1+1 PO) Take 1 tablet by mouth in the morning. ActiveraNITIdine 150 mg oral capsule (4 sources)Histamine-2 Receptor Antagonist End: 60-48-5537lusb 1 capsule by mouth in the morningraNITIdine (Zantac) 150 MG capsule Take 150 mg by mouth in the morning and 150 mg in the evening. Discontinued Completed/Discontinued Medications MedicationDrug Class(es)DatesSig (Normalized)Sig (Original) (2 sources) Not-TakingPRENATAL NO122/IRON/FOLIC ACID ( MULTI ORAL) (3 sources) End: 01-60-4915zhdm 1 tablet by mouth once dailyPRENATAL NO122/IRON/FOLIC ACID ( MULTI ORAL) Take 1 tablet by mouth daily. 0 11/13/2023 Discontinued (Therapy completed)take 1 tablet by mouth once dailyPRENATAL NO122/IRON/FOLIC ACID ( MULTI ORAL) Take 1 tablet by mouth daily. 0 Active Problems Active Problems Problem ClassificationProblemDateDocumented DateEpisodic/ChronicBiliary tract disease (3 sources)Other specified diseases of gallbladder; Translations: [Biliary sludge]Onset: 457634-16-2674IdolzeovJumnjrba of urinary tract (2 sources)Calculus of kidney; Translations: [Kidney stone]Onset: 10-29-2023 77-38-9849NkqfsfncNmgascpczdvut and procreative management (4 sources)Patient encounter status; Translations: [Encounter for initial prescription of contraceptive pills]17-28-7748TttewmqsFdvjnljzl disorders (4 sources)Irregular menstruation, unspecified; Translations: [IRREGULAR MENSTRUATION UNSPECIFIED]Onset: 79-83-8124BxtavpdGfshw and unspecified benign neoplasm (2 sources)Fibroadenoma of right breast; Translations: [Benign neoplasm of right breast]83-14-9507IpffjytjRbtjk and unspecified benign neoplasm (1 source)Benign neoplasm of right breast; Translations: [Benign neoplasm of right breast]Onset: 50-03-5517ZqhuijiqIdlxg complications of (1 source)Other placental disorders, first trimester; Translations: [OTH PLACENTAL DISORDER FIRST TRI]Onset: 73-35-0670CbeuwqkkScjeh gastrointestinal disorders (1 source)HeartburnOnset: 38-92-1810LwlxabviUttat and delivery including normal (4 sources)Encounter for supervision of other normal , first trimester; Translations: [ENC SUPV OTH NORMAL PREG FIRST TRI]Onset: 24-70-9900DnqtmtsyJpxcf skin disorders (2 sources)Eruption; Translations: [Rash and other nonspecific skin eruption] 99-86-5428OmwlmetaRnazqbku codes; unclassified (1 source)Less than 8 weeks gestation of ; Translations: [< 8 WEEKS GESTATION ]Onset: 51-58-0605NjydbkrnNjszblibbzrk (1 source)Annual ExamOnset: 75-54-9492Xudiihwiemeh (1 source)CholelithiasisOnset: 43-15-8049Yxkcanfpiavw (1 source)BloatedOnset: 03-06-7418Bhfkxlrkruma (1 source)new patientOnset: 10-29-2023 Past or Other Problems Problem ClassificationProblemDateDocumented DateEpisodic/ChronicAbdominal pain (6 sources)Epigastric pain; Translations: [Epigastric pain]Onset: 11-04-2023 63-81-3902KnrdlbdgCdbor and chronic tonsillitis (1 source)Acute tonsillitis, unspecifiedOnset: 11-28-2021 Resolved: 10-35-1584JkpwxwaiSmrrtdxykuixo and screening for infectious disease (1 source)Contact with and (suspected) exposure to other viral communicable diseasesOnset: 11-28-2021 Resolved: 61-43-8536AqbtcthrTatf disorders (4 sources)Mood disordersOnset: 10-29-2023 Resolved: 021545-93-7187Sptbecxaosdd breast conditions (3 sources)Breast lump; Translations: [Unspecified lump in the right breast, upper outer quadrant]Onset: 786187-72-6506WrwbnllhEnxqe complications of ; puerperium affecting management of mother (4 sources)Disorder of structure; 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, , affecting care of mother, antepartum]Onset: 278684-93-3360Wezexipm Unclassified (4 sources)Onset: 10-29-2023 Resolved: Results Test NameValueInterpretationReference RangeFacilityMammography reportOrdered By: Spencer Nichole on 64-37-2444Jywhtkzluq imaging studyNATIONWIDE [facility] [address] [place] [address] Mammography Report Signed Patient: Delores Yusuf MR #: [id number] : 1990 Acct:[id number] Age/Sex: 34 / F Adm Date: 5 Loc: DC Room: Type: [facility] Attending Dr: Alesha Joy PA-C Ordering Provider: Alesha ASTUDILLO Date of Service: 03/31/25 Procedure(s): MM diagnostic mammo RT w/CAD; US breast RT limited Accession Number(s): ([id number]) MM/MM diagnostic mammo RT w/CAD: D24.1 ([id number]) US/US breast RT limited: D24.1 Copies to: Alesha ASTUDILLO~ CLINICAL DATA: Follow-up abnormality right breast Right DIAGNOSTIC MAMMOGRAM - WITH TOMOSYNTHESIS AND CAD , rightLIMITED BREAST ULTRASOUND COMPARISON:Mammograms dating back to 2023. Right breast ultrasound 08/20/2024. Breast MRI 10/16/2024 Tomosynthesis imaging was obtained using low-dose digital technique. This examination was reviewed with the aid of CAD. Additional ultrasound imaging was also obtained. Mammogram: The right breast is composed of heterogeneously dense fibroglandular tissue. No new areas of architectural distortion, worrisome masses or suspicious microcalcifications Ultrasound: The previously region of presumed dilated ducts at the 10:00 position of the right breast appears to have resolved. Imaging of the retroareolar region demonstrates mildly dilated ducts without filling defect to suggest papilloma. At the 12:00 position of the right breast approximately 6 cm from the nipple, a well-circumscribed hypoechoic mass is noted measuring 6 x 6 x 3 mm. An additional similar-appearing mass is seen at the1:00 position of the right breast 3 to 4 cm from the nipple measuring 5 x 3 x 3 mm. MM/MM diagnostic mammo RT w/CAD IMPRESSION: 2 HYPOECHOIC MASSES ARE SEEN INVOLVING THE RIGHT BREAST LARGEST MEASURING 6 X 6 X 3 MM AT THE 12:00POSITION OF THE RIGHT BREAST APPROXIMATELY 6 CM FROM THE NIPPLE. FINDINGS LIKELY REPRESENT SMALL FIBROADENOMAS. BILATERAL DIAGNOSTIC MAMMOGRAPHY AND ULTRASOUND IN 6 MONTHS IS SUGGESTED TO CONFIRM STABILITY. THE PREVIOUSLY IDENTIFIED PRESUMED DILATED DUCT SEEN ON THE PRIOR ULTRASOUND STUDY FROM 08/20/2024 APPEARS TO HAVE RESOLVED. RESULT CODE: 3 Probably Benign Finding Short Term Follow-Up DENSITY CODE: 3 (approximately 51-75% glandular) The breasts are heterogeneouslydense, which may obscure small masses. FOLLOW UP: 6M The false-negative rate of mammography is approximately 10-percent. Management of a palpable abnormality must be based on clinical grounds. Impression dictated by: Spencer Nichole Jr., ThadOSofia 03/31/2025 12:59 PM Dictation Location: [facility] Dictated By: Spencer Nichole Jr, DO 03/31/25 1255 Signed By: 03/31/25 1259 [facility] HospitalUS [facility] 59-39-9668II breast RT [facility] [address] [place] [address] Mammography Report Signed Patient: Delores Yusuf MR#: [id number] : 1990 Acct:[id number] Age/Sex: 34 / F Adm Date: 03/31/25 Loc: DC Room: Type: [facility] Attending Dr: Alesha Joy PA-C Ordering Provider: Alesha ASTUDILLO Date of Service: 03/31/25 Procedure(s): MM diagnostic mammo RT w/CAD; US breast RT limited Accession Number(s): ([id number]) MM/MM diagnostic mammo RT w/CAD: D24.1 ([id number]) US/US breast RT limited: D24.1 Copies to: Alesha Joy DELICATESSEN GOODS STOCK CLERK-C Henna Hodge DELICATESSEN GOODS STOCK CLERKDaniel CLINICAL DATA: Follow-up abnormality right breast Right DIAGNOSTIC MAMMOGRAM - WITH TOMOSYNTHESIS AND CAD , rightLIMITED BREAST ULTRASOUND COMPARISON:Mammograms dating back to 2023. Right breast ultrasound 08/20/2024. Breast MRI 10/16/2024 Tomosynthesis imaging was obtained using low-dose digital technique. This examination was reviewed with the aid of CAD. Additional ultrasound imaging was also obtained. Mammogram: The right breast is composed of heterogeneously dense fibroglandular tissue. No new areas of architectural distortion, worrisome masses or suspicious microcalcifications Ultrasound: The previously region of presumed dilated ducts at the 10:00 position of the right breast appears to have resolved. Imaging of the retroareolar region demonstrates mildly dilated ducts without filling defect to suggest papilloma. At the 12:00 position of the right breast approximately 6 cm from the nipple, a well-circumscribed hypoechoic mass is noted measuring 6 x 6 x 3 mm. An additional similar-appearing mass is seen at the 1:00 position of the right breast 3 to 4 cm from the nipple measuring 5 x 3 x 3 mm. MM/MM diagnostic mammo RT w/CAD IMPRESSION: 2 HYPOECHOIC MASSES ARE SEEN INVOLVING THE RIGHT BREAST LARGEST MEASURING 6 X 6 X 3 MM AT THE 12:00 POSITION OF THE RIGHT BREAST APPROXIMATELY 6 CM FROM THE NIPPLE. FINDINGS LIKELY REPRESENT SMALL FIBROADENOMAS. BILATERAL DIAGNOSTIC MAMMOGRAPHY AND ULTRASOUND IN 6 MONTHS IS SUGGESTED TO CONFIRM STABILITY. THE PREVIOUSLY IDENTIFIED PRESUMED DILATED DUCT SEEN ON THE PRIOR ULTRASOUND STUDY FROM 08/20/2024 APPEARS TO HAVE RESOLVED. RESULT CODE: 3 Probably Benign Finding Short Term Follow-Up DENSITY CODE: 3 (approximately 51-75% glandular) The breasts are heterogeneously dense, which may obscure small masses. FOLLOW UP: 6M The false-negative rate of mammography is approximately 10-percent. Management of a palpable abnormality must be based on clinical grounds. Impression dictated by: Spencer Nichole Jr., D.O. 03/31/2025 12:59 PM Dictation Location: [facility]01 Dictated By: Spencer Nichole Jr, DO 03/31/25 1255 Signed By: 03/31/25 1259[facility] Physician GroupMR breast BI wo/w con CADon 02-65-1840GH breast BI wo/w con [facility] [place] [address] MRI Report Signed Patient: Delores Yusuf MR#: [id number] : 1990 Acct:[id number] Age/Sex: 34 / F ADM Date: 10/16/24 Loc: Room: Type: [facility] Attending Dr: Alesha Joy PA-C Copies to: Alesha ASTUDILLO Ordering Provider: Alesha ASTUDILLO Date of Service: 10/16/24 MR/MR breast BI wo/w con CAD: R92.8,N63.11 BILATERAL BREAST MRI WITHOUT AND WITH INTRAVENOUS CONTRAST CLINICAL HISTORY: Lump in right breast for 2 months. Nipple changes COMPARISON: Diagnostic mammogram and ultrasound performed at outside institution dated 08/20/2024. TECHNIQUE: Multisequence, multiplanar imaging of the breasts were obtained before and after the use of IV contrast. All imaged data was reviewed using the [employer] system. The postcontrast images were subtracted and CAD mapping of the enhancement kinetics was performed. Kinetic curves were generated. 2D and 3D MIP images were also reviewed. FINDINGS: The breasts are composed of extremely dense fibroglandular tissue with moderate background parenchymal enhancement. Multiple nonspecific enhancing foci are seen within both breasts relatively symmetrical to one another. No suspicious masslike or nonmass-like enhancement seen within either breast. A T2 hyperintense lesion is seen in the region of the 12:00 position of the right breast approximately 4.4 cm from the nipple with well-circumscribed margins suggestive of a small fibroadenoma. This measures 5 x 5 x 4 mm. No definitive retroareolar abnormality seen particularly involving the right breast. No MRI abnormality is seen involving the area palpable lump involving the outer quadrant of the right breast. No chest wall abnormality is noted. No suspicious intramammary or axillary lymph nodes. MR/MR breast BI wo/w con CAD IMPRESSION: NO MRI EVIDENCE OF MALIGNANCY. THE PATIENT'S LUMP SHOULD BE HANDLED ON A CLINICAL BASIS. PRESUMED FIBROADENOMA 12:00 POSITION OF THE RIGHT BREAST MEASURING 5 X 5 X 4 MM. DIAGNOSTIC RIGHT BREAST MAMMOGRAM AND ULTRASOUND IN 6 MONTHS IS SUGGESTED FOR FURTHER EVALUATION OF THE PREVIOUS ULTRASOUND FINDING. THE SUSPECTED FIBROADENOMA AT THE 12:00 POSITION CAN ALSO BE EVALUATED AT THAT TIME. RESULT CODE: 3 Probably Benign Finding Short Term Follow-Up FOLLOW UP: 6M Impression dictated by: Spencer Nichole Jr., D.O.10/16/2024 11:55 AM Dictation Location: [place] [address] Transcribed By: [facility] 10/16/24 1155 Dictated By: Spencer Nichole Jr, DO 10/16/24 1136 Signed By: 10/16/24 [facility] Physician GroupDcgnetic resonance imaging reportOrdered By: Spencer Nichole on 80-67-0583Hsnop reportKINDRED [place] [address] MRI Report Signed Patient: Delores Yusuf MR #: [id number] : 1990 Acct:[id number] Age/Sex: 34 / F ADM Date: 5 Loc: Room: Type: [facility] Attending Dr: Alesha Joy PA-C Copies to: Alesha ASTUDILLO~ Ordering Provider: Alesha ASTUDILLO Date of Service: 10/16/24 MR/MR breast BI wo/w con CAD: R92.8,N63.11 BILATERAL BREAST MRI WITHOUT AND WITH INTRAVENOUS CONTRAST CLINICAL HISTORY: Lump in right breast for 2 months. Nipple changes COMPARISON: Diagnostic mammogram and ultrasound performed at outside institution dated 08/20/2024. TECHNIQUE: Multisequence, multiplanar imaging of the breasts were obtained before and after the useof IV contrast. All imaged data was reviewed using the[employer] system. The postcontrast images were subtracted and CAD mapping of the enhancement kinetics was performed. Kinetic curves were generated.2D and 3D MIP images were also reviewed. FINDINGS: The breasts are composed of extremely dense fibroglandular tissue withmoderate backgroundparenchymal enhancement. Multiple nonspecific enhancing foci are seen within both breasts relatively symmetrical to one another. No suspicious masslike or nonmass-like enhancement seen within either breast. A T2 hyperintenselesion is seen in the region of the 12:00 position of the right breast approximately 4.4 cm from the nipple withwell-circumscribed margins suggestive of a small fibroadenoma. This measures 5 x 5 x 4 mm. No definitive retroareolar abnormality seen particularly involving the right breast. No MRI abnormality is seen involving the area palpable lump involving the outer quadrant of the right breast. No chest wall abnormality is noted. No suspicious intramammary or axillary lymph nodes. MR/MR breast BI wo/w con CAD IMPRESSION: NO MRI EVIDENCE OF MALIGNANCY. THE PATIENT'S LUMP SHOULD BE HANDLED ON A CLINICAL BASIS. PRESUMED FIBROADENOMA 12:00 POSITION OF THE RIGHT BREAST MEASURING 5 X 5 X 4 MM. DIAGNOSTIC RIGHT BREAST MAMMOGRAM AND ULTRASOUND IN 6 MONTHS IS SUGGESTED FOR FURTHER EVALUATION OFTHE PREVIOUS ULTRASOUND FINDING. THE SUSPECTED FIBROADENOMA AT THE 12:00 POSITION CAN ALSO BE EVALUATED AT THAT TIME. RESULT CODE: 3 Probably Benign Finding Short Term Follow-Up FOLLOW UP: 6M Impression dictated by: Spencer Nichole Jr., D.O.10/16/2024 11:55 AM Dictation Location: [place] [address] Transcribed By: [facility] 10/16/24 1155 Dictated By: Spencer Nichole Jr, DO 10/16/24 1136 Signed By: 10/16/24 1155 [facility] [place] [address] Mammography Report Signed Patient: DELORES YUSUF MR#: [id number] : 1990 Acct:[id number] Age/Sex: 33 / F ADM Date: 08/20/24 Loc: MAMMO Attending Dr: Alesha Joy Ordering Physician: Alesha Joy Results: Date of Service: 08/20/24 Follow Up: Procedure(s): MM tomosynthesis diagnostic BI Accession Number(s): [id number] cc: Alesha Joy; Physician,Non-Staff M.D. Patient Name: DELORES YUSUF MR#: [id number] : 1990 Exam Date: 08/20/2024 Ordering Doctor: SHAWN Joy . RADIOLOGY REPORT PROCEDURE: MM TOMOSYNTHESIS DIAGNOSTIC BI, 08/20/2024, 13:43 US BREAST RT LIMITED, 08/20/2024, 14:19 COMPARISON: None. INDICATIONS: Right Breast Lump Calculator Name NCI Breast Cancer Risk Assessment Tool 5 Year Breast Cancer Risk Not Applicable. Lifetime Breast Cancer Risk Not Applicable. Personal Breast Cancer No Personal Ovarian Cancer No Treatments None Family Cancers Aunt-maternal with breast cancer at age 56. LOCATION: [facility] BREAST COMPOSITION: The breasts are extremely dense, which lowers the sensitivity of mammography. FINDINGS: Scattered benign-appearing calcifications are present. Scattered benign-appearing lymph nodes are present. RIGHT BREAST: Focal asymmetry upper outer quadrant in the region the patient's palpable abnormality. Ultrasound demonstrates a tubular, saccular structure measuring 5.1 cm in length, 4.5 x 4 mm in diameter with some internal low-level echoes and, vascularity and possibly calcification. I favor a dilated duct with intraluminal contents however the presence of vascularity is suspicious. MRI follow-up is recommended for further characterization LEFT BREAST: No significant suspicious finding. DIAGNOSTIC CATEGORY 0--INCOMPLETE: NEED ADDITIONAL IMAGING EVALUATION. RECOMMENDATIONS: FOLLOW-UP BREAST MRI BILATERAL BREASTS IN 12 MONTHS. PLEASE NOTE: A NORMAL MAMMOGRAM DOES NOT EXCLUDE THE POSSIBILITY OF BREAST CANCER. A CLINICALLY SUSPICIOUS PALPABLE LUMP SHOULD BE BIOPSIED. Dictated by: Garfield Younger MD on 08/20/2024 at 14:53 Approved by: Garfield Younger MD on 08/20/2024 at 14:58 Dictated By: Garfield Younger M.D. Signed By: 08/20/24 1459 DD/ 1458 TD/TT: Airframe And Powerplant Technician:TBHRadiology, RadiologistMD - 08/20/[address] [address] Mammography Report Signed Patient: DELORES YUSUF MR#: [id number] : 1990 Acct:[id number] Age/Sex: 33 / F ADM Date: 08/20/24 Loc: MAMMO Attending Dr: Alesha Joy Ordering Physician: Alesha Joy Results: Date of Service: 08/20/24 Follow Up: Procedure(s): MM tomosynthesis diagnostic BI Accession Number(s): [id number] cc: Alesha Joy; Physician,Non-Staff M.D. Patient Name: DELORES YUSUF MR#: [id number] : 1990 Exam Date: 08/20/2024 Ordering Doctor: SHAWN Joy . RADIOLOGY REPORT PROCEDURE: MM TOMOSYNTHESIS DIAGNOSTIC BI, 08/20/2024, 13:43 US BREAST RT LIMITED, 08/20/2024, 14:19 COMPARISON: None. INDICATIONS: Right Breast Lump Calculator Name NCI Breast Cancer Risk Assessment Tool 5 Year Breast Cancer Risk Not Applicable. Lifetime Breast Cancer Risk Not Applicable. Personal Breast Cancer No Personal Ovarian Cancer No Treatments None Family Cancers Aunt-maternal with breast cancer at age 56. LOCATION: [facility] BREAST COMPOSITION: The breasts are extremely dense, which lowers the sensitivity of mammography. FINDINGS: Scattered benign-appearing calcifications are present. Scattered benign-appearing lymph nodes are present. RIGHT BREAST: Focal asymmetry upper outer quadrant in the region the patient's palpable abnormality. Ultrasound demonstrates a tubular, saccular structure measuring 5.1 cm in length, 4.5 x 4 mm in diameter with some internal low-level echoes and, vascularity and possibly calcification. I favor a dilated duct with intraluminal contents however the presence of vascularity is suspicious. MRI follow-up is recommended for further characterization LEFT BREAST: No significant suspicious finding. DIAGNOSTIC CATEGORY 0--INCOMPLETE: NEED ADDITIONAL IMAGING EVALUATION. RECOMMENDATIONS: FOLLOW-UP BREAST MRI BILATERAL BREASTS IN 12 MONTHS. PLEASE NOTE: A NORMAL MAMMOGRAM DOES NOT EXCLUDE THE POSSIBILITY OF BREAST CANCER. A CLINICALLY SUSPICIOUS PALPABLE LUMP SHOULD BE BIOPSIED. Dictated by: Garfield Younger MD on 08/20/2024 at 14:53 Approved by: Garfield Younger MD on 08/20/2024 at 14:58 Dictated By: Garfield Younger M.D. Signed By: 08/20/24 1459 DD/ 1458 TD/TT: Airframe And Powerplant Technician: PEDRITO Circle 1 NetworkNo Panel InformationOrdered By: Radiologist Radiology on [id number] Circle [address] Network Work Phone: No Panel Informationon 05-87-4595Xiromgvha Study observation (narrative)PEDRITO [place] Breast - right limitedon 91-86-9959[place]ss[place] [id number] Ultrasound Report Signed Patient: DELORES YUSUF MR#: [id number] : 1990 Acct:[id number] Age/Sex: 33 / F ADM Date: 08/20/24 Loc: MAMMO Attending Dr: Alesha Joy Ordering Physician: Alesha Joy Date of Service: 08/20/24 Procedure(s): US breast RT limited Accession Number(s): [id number] cc: Alesha Joy; Physician,Non-Staff M.D. Patient Name: DELORES YUSUF MR#: [id number] : 1990 Exam Date: 08/20/2024 Ordering Doctor: SHAWN Joy . RADIOLOGY REPORT PROCEDURE: MM TOMOSYNTHESIS DIAGNOSTIC BI, 08/20/2024, 13:43 US BREAST RT LIMITED, 08/20/2024, 14:19 COMPARISON: None. INDICATIONS: Right Breast Lump Calculator Name NCI Breast Cancer Risk Assessment Tool 5 Year Breast Cancer Risk Not Applicable. Lifetime Breast Cancer Risk Not Applicable. Personal Breast Cancer No Personal Ovarian Cancer No Treatments None Family Cancers Aunt-maternal with breast cancer at age 56. LOCATION: [facility] BREAST COMPOSITION: The breasts are extremely dense, which lowers the sensitivity of mammography. FINDINGS: Scattered benign-appearing calcifications are present. Scattered benign-appearing lymph nodes are present. RIGHT BREAST: Focal asymmetry upper outer quadrant in the region the patient's palpable abnormality. Ultrasound demonstrates a tubular, saccular structure measuring 5.1 cm in length, 4.5 x 4 mm in diameter with some internal low-level echoes and, vascularity and possibly calcification. I favor a dilated duct with intraluminal contents however the presence of vascularity is suspicious. MRI follow-up is recommended for further characterization LEFT BREAST: No significant suspicious finding. DIAGNOSTIC CATEGORY 0--INCOMPLETE: NEED ADDITIONAL IMAGING EVALUATION. RECOMMENDATIONS: FOLLOW-UP BREAST MRI BILATERAL BREASTS IN 12 MONTHS. PLEASE NOTE: A NORMAL MAMMOGRAM DOES NOT EXCLUDE THE POSSIBILITY OF BREAST CANCER. A CLINICALLY SUSPICIOUS PALPABLE LUMP SHOULD BE BIOPSIED. Dictated by: Garfield Younger MD on 08/20/2024 at 14:53 Approved by: Garfield Younger MD on 08/20/2024 at 14:58 Dictated By: Garfield Younger M.D. Signed By: 08/20/24 1459 DD/ 1458 TD/TT: Airframe And Powerplant Technician:AURELIAadiologgraciela, MD Demetri - 08/20/2024 [place] [address] Ultrasound Report Signed Patient: DELORES YUSUF MR#: [id number] : 1990 Acct:[id number] Age/Sex: 33 / F ADM Date: 08/20/24 Loc: MAMMO Attending Dr: Alesha Joy Ordering Physician: Alesha Joy Date of Service: 08/20/24 Procedure(s): US breast RT limited Accession Number(s): [id number] cc: Alesha Joy; Physician,Non-Staff M.Thad Patient Name: DELORES YUSUF MR#: [id number] : 1990 Exam Date: 08/20/2024 Ordering Doctor: SHAWN Joy . RADIOLOGY REPORT PROCEDURE: MM TOMOSYNTHESIS DIAGNOSTIC BI, 08/20/2024, 13:43 US BREAST RT LIMITED, 08/20/2024, 14:19 COMPARISON: None. INDICATIONS: Right Breast Lump Calculator Name NCI Breast Cancer Risk Assessment Tool 5 Year Breast Cancer Risk Not Applicable. Lifetime Breast Cancer Risk Not Applicable. Personal Breast Cancer No Personal Ovarian Cancer No Treatments None Family Cancers Aunt-maternal with breast cancer at age 56. LOCATION: [facility] BREAST COMPOSITION: The breasts are extremely dense, which lowers the sensitivity of mammography. FINDINGS: Scattered benign-appearing calcifications are present. Scattered benign-appearing lymph nodes are present. RIGHT BREAST: Focal asymmetry upper outer quadrant in the region the patient's palpable abnormality. Ultrasound demonstrates a tubular, saccular structure measuring 5.1 cm in length, 4.5 x 4 mm in diameter with some internal low-level echoes and, vascularity and possibly calcification. I favor a dilated duct with intraluminal contents however the presence of vascularity is suspicious. MRI follow-up is recommended for further characterization LEFT BREAST: No significant suspicious finding. DIAGNOSTIC CATEGORY 0--INCOMPLETE: NEED ADDITIONAL IMAGING EVALUATION. RECOMMENDATIONS: FOLLOW-UP BREAST MRI BILATERAL BREASTS IN 12 MONTHS. PLEASE NOTE: A NORMAL MAMMOGRAM DOES NOT EXCLUDE THE POSSIBILITY OF BREAST CANCER. A CLINICALLY SUSPICIOUS PALPABLE LUMP SHOULD BE BIOPSIED. Dictated by: Garfield Younger MD on 08/20/2024 at 14:53 Approved by: Garfield Younger MD on 08/20/2024 at 14:58 Dictated By: Garfield Younger M.D. Signed By: 08/20/24 1459 DD/ 1458 TD/TT: Airframe And Powerplant Technician: PEDRITO [facility] AND AUTO DIFFon 81-62-1300YESLDWNZ BASOPHIL0.1 X10E9/LNormal 0.0-0.2ProMedFlower HospitalComment on above:Performed By: #### CBCA CMP, 82214-3, 3016-3 #### [facility] ([id number]) [address], [address] [place], [place] [address]VDKOBABG NEUTROPHIL3.2 X10E9/LNormal1.5-6.6ProBlanchard Valley Health System Blanchard Valley HospitalComment on above:Performed By: #### CBCA, CMP, 44745-9, 3016-3 #### [facility] ([id number]) [address], [address] [place], [place] [address]Hycqfhwhx/100 WBC (Bld)1.1 %NormalProBlanchard Valley Health System [facility] Comment on above:Performed By: #### CBCA, CMP, 50500-9, 3016-3 #### [facility] ([id number]) [address], [address] [place], [place] [address]Togflmzziln (Bld) [#/Vol]0.1 10*3/uLNormal0.0-0.4ProBlanchard Valley Health System Blanchard Valley HospitalComment on above:Performed By: #### CBCA, CMP, 11328-0, 3016-3 #### [facility] ([id number]) [address], [address] [place], [place] [address]Fbvgohmyugg/100 WBC (Bld)1.9 %NormalUniversity Hospitals Parma Medical Center Comment on above:Performed By: #### CBCA, CMP, 25081-2, 3015-3 #### [facility] ([id number]) [address], [address] [place], [place] [address]Lzouonalcdu distribution width (RBC) [Ratio]13.6 %Normal 11.5-15.0ProKettering Health Miamisburg HospitalComment on above:Performed By: #### CBCA, CMP, 49566-6, 3015-3 #### [facility] ([id number]) [address], [facility] [address] [place], [place] [address]Ljyddwywlr (Bld) [Volume fraction]35.8 %Liihdc53-53GntCydyivBlanchard Valley Health System Blanchard Valley HospitalComment on above:Performed By: #### CBCA, CMP, , 3015- #### [facility] ([id number]) [address], [address] [place], [place] [address]Pqnoknomyo (Bld) [Mass/Vol]12.2 g/nQMerghu47.7-15.5PSouthview Medical Center HospitalComment on above:Performed By: #### CBCA, CMP, , 3015-3 #### [facility] ([id number]) [address], [address] [place], [place] [address]Wsyluqbbeff (Bld) [#/Vol]1.4 10*3/uLNormal1.0-3.5PUniversity Hospitals Lake West Medical CenterComment on above:Performed By: #### CBCA, CMP, 12457-7, 3015-3 #### [facility] ([id number]) [address], [address] [place], [place] [address]Qbgxywbmcgu/100 WBC (Bld)27.0 %NormalUniversity Hospitals Parma Medical Center Comment on above:Performed By: #### CBCA, CMP, 47514-0, 3015-3 #### [facility] ([id number]) [address], [address] [place], [place] [address]MLW (RBC) [Entitic mass]29.3 kpVobaiv05-43YwlTbqhgm [facility] HospitalComment on above:Performed By: #### CBCA, CMP, 72990-4, 3015-3 #### [facility] ([id number]) [address], [address] [place], [place] [address]UHXD (RBC) [Mass/Vol]34.0 g/lHUufxbm42-67KmiVkehec [facility] HospitalComment on above:Performed By: #### CBCA, CMP, 41366-5, 3015- #### [facility] ([id number]) [address], [address] [place], [place] [address]GZL (RBC) [Entitic vol]86 bTQxdqaf03-169QumAplpky Cropseyville HospitalComment on above:Performed By: #### CBCA, CMP, , 3015- #### [facility] ([id number]) [address], [address] [place], [place] [address]Ocerjueiu (Bld) [#/Vol]0.3 10*3/uLNormal0-0.9ProMedica Cropseyville HospitalComment on above:Performed By: #### CBCA, CMP, 28242-4, 3015-3 #### [facility] ([id number]) [address], [address] [place], [place] [address]Wujmhumhd/100 WBC (Bld)5.9 %NormalCleveland Clinic Medina Hospitalca [facility] Comment on above:Performed By: #### CBCA, CMP, 48200-1, 3015-3 #### [facility] ([id number]) [address], [address] [place], [place] [address]Icdzvwmfnkd/100 WBC (Bld)64.1 %NormalCleveland Clinic Medina Hospitalca [facility] Comment on above:Performed By: #### CBCA, CMP, 27402-4, 3015-3 #### [facility] ([id number]) [address], [address] [place], [place] [address]Ftzthhlg mean volume (Bld) [Entitic vol]9.0 fLNormal7-12 ProMRegency Hospital Cleveland EastComment on above:Performed By: #### CUATE RAMOS, 59191-2, 3015-3 #### [facility] ([id number]) [address], [address] [place], [place] [address]Svemrpihr (Bld) [#/Vol]262 10*3/tHBwqjzz334-905VsyFucajy [place] HospitalComment on above:Performed By: #### CUATE RAMOS, 63929-0, 3015-3 #### [facility] ([id number]) [address], [address] [place], [place] [address]FZV COUNT4.15 X10E12/LNormal3.80-5.20[facility] Comment on above:Performed By: #### CUATE RAMOS, 58048-7, 3015-3 #### [facility] ([id number]) [address], [address] [place] [address]VTM (Bld) [#/Vol]5.0 10*3/uLNormal4.0-11.0University Hospitals Parma Medical CenterComment on above:Performed By: #### CUATE RAMOS, 84469-3, 3015-3 #### [facility] ([id number]) [address], [address] [place], [place] [address]UID auto differentialon 36-74-2650Ltgprswaw (Bld) [#/Vol]0.1 10*3/uLProMedica Health SystemBasophils/100 WBC (Bld)1.1 %[facility] SystemEosinophils (Bld) [#/Vol]0.1 10*3/uLProMedica Health SystemEosinophils/100 WBC (Bld)1.9 %ProMedica Health SystemErythrocyte distribution width (RBC) [Ratio]13.6 %11.5 - 15.0 %[facility] HospitalHematocrit (Bld) [Volume fraction]35.8 %35 - 47 %[facility] HospitalHemoglobin (Bld) [Mass/Vol]12.2 g/dL11.7 - 15.5 g/dLDayton Osteopathic HospitalLymphocytes (Bld) [#/Vol]1.4 10*3/uL [facility] HospitalLymphocytes/100 WBC (Bld)27.0 %[facility] HospitalMCH (RBC) [Entitic mass]29.3 pg27 - 34 pgPHolzer Health SystemMCHC (RBC) [Mass/Vol]34.0 g/dL32 - 36 g/dLDayton Osteopathic HospitalMCV (RBC) [Entitic vol]86 fL80 - 100 [facility] HospitalMonocytes (Bld) [#/Vol]0.3 10*3/uLDayton Osteopathic HospitalMonocytes/100 WBC (Bld)5.9 %[facility]opathic HospitalNeutrophils (Bld) [#/Vol]3.2 10*3/uLDayton Osteopathic HospitalNeutrophils/100 WBC (Bld)64.1 % [facility] HospitalPlatelet mean volume (Bld) [Entitic vol]9.0 fL7 - 12 fL [facility] HospitalPlatelets (Bld) [#/Vol]262 10*3/[facility] RBC (Bld) [#/Vol]4.15 10*6/[facility] RegionWBC corrected for nucl RBC Auto (Bld) [#/Vol]5.0H[facility] University HospitalCOMPREHENSIVE METABOLIC PANELon 71-44-5420Qrlahyh [Mass/Vol]4.7 g/dLNormal3.2-5.3PUniversity Hospitals Lake West Medical CenterComment on above:Performed By: #### CBCA, CMP, 85623-9, 3016-3 #### [facility] ([id number]) [address] [place], [place] [address]QVO [Catalytic activity/Vol]68 U/BBkmyxo76-205FwgQsaocu [facility] HospitalComment on above:Performed By: #### CUATE RAMOS, 38784-5, 6-3 #### [facility] ([id number]) [address], [address] [place], [place] [address]XMY [Catalytic activity/Vol]14 U/LNormal0-31ProMedica [place] HospitalComment on above:Performed By: #### CUATE RAMOS, 02140-8, 6-3 #### [facility] ([id number]) [address], [address] [place], [place] [address]Hwvwg gap [Moles/Vol]10 mmol/LNormal5-15ProMedica [place] HospitalComment on above:Performed By: #### CUATE RAMOS, 86820-5, 3015-3 #### [facility] ([id number]) [address], [address] [place], [place] [address]DRI [Catalytic activity/Vol]16 U/LNormal0-41ProMedica [place] HospitalComment on above:Performed By: #### CUATE RAMOS, 91450-2, 3015-3 #### [facility] ([id number]) [address], [address] [place], [place] [address]Ottgouhci [Mass/Vol]0.4 mg/dLNormal0.3-1.2ProMedica [place] HospitalComment on above:Performed By: #### CUATE RAMOS, 64267-2, 3015-3 #### [facility] ([id number]) [address], [address] [place], [place] [address]Cqwrzpd [Mass/Vol]9.5 mg/dLNormal8.5-10.5ProMedica [place] HospitalComment on above:Performed By: #### CUATE RAMOS, 24372-7, 6-3 #### [facility] ([id number]) [address], [address] [place], [place] [address]Kxpbgxxd [Moles/Vol]105 mmol/NDqrzkh84-342NzsLmneuv [place] HospitalComment on above:Performed By: #### CUATE RAMOS, 00471-1, 3015-3 #### [facility] ([id number]) [address], [address] [place], [place] [address]WK3 [Moles/Vol]27 mmol/AKjjpna63-26NakLcapirUniversity Hospitals Lake West Medical Center Comment on above:Performed By: #### CUATE RAMOS, 18084-9, 3015-3 #### [facility] ([id number]) [address], [address] [place], [place] [address]Lhsveihboc [Mass/Vol]0.74 mg/dLNormal0.40-1.00ProBlanchard Valley Health System Blanchard Valley HospitalComment on above:Result Comment: METHOD TRACEABLE TO IDMS STANDARD Performed By: #### CUATE RAMOS, 84454-7, 3015- #### [facility] ([id number]) [address], [address] [place], [place] [address]vYVG (CKD-EPI) NON-RACE DEPENDENT>90Normal>59ProBlanchard Valley Health System Blanchard Valley HospitalComment on above:Result Comment: Reported eGFR is based on the CKD-EPI 2021 equation that does not use a race coefficient.Performed By: #### CUATE RAMOS, 95365-6, 3015-3 #### [facility] ([id number]) [address], [address] [place], [place] [address]Ryxjymb [Mass/Vol]76 mg/jROijnsh58-15TfvVhakjgUniversity Hospitals Parma Medical Center Comment on above:Performed By: #### CUATE RAMOS, 95265-4, 3015-3 #### [facility] ([id number]) [address], [address] [place], [place] [address]Kvrrcfvte [Moles/Vol]4.4 mmol/LNormal3.5-5.0ProBlanchard Valley Health System Blanchard Valley HospitalComment on above:Performed By: #### CUATE RAMOS, 63926-9, 3016-3 #### [facility] ([id number]) [address], [address] [place], [place] [address]Feqnpsn [Mass/Vol]7.6 g/dLNormal6.0-8.0ProBlanchard Valley Health System [facility] Comment on above:Performed By: #### CUATE RAMOS, 74940-3, 3016-3 #### [facility] ([id number]) [address], [address] [place], [place] [address]Sndwno [Moles/Vol]142 mmol/IVmgafe240-417ZpgQpnupb [place] HospitalComment on above:Performed By: #### CUATE RAMOS, 75354-7, 3016-3 #### [facility] ([id number]) [address], [address] [place], [place] [address]Fdaw nitrogen [Mass/Vol]12 mg/dLNormal5-23ProBlanchard Valley Health System Blanchard Valley HospitalComment on above:Performed By: #### CUATE RAMOS, 67316-5, 3016-3 #### [facility] ([id number]) [address], [address] [place] [address]Chblleauddanu metabolic panelon 19-19-4803Tffkgku [Mass/Vol]4.7 g/dL3.2 - 5.3 g/dLProMedica Health SystemALP [Catalytic activity/Vol]68 U/L39 - 130 U/LProMedica Health SystemALT No additional P-5'-P [Catalytic activity/Vol] 14 U/L0 - 31 U/LProMedica Health SystemAnion gap [Moles/Vol]10 mmol/L5 - 15 mmol/LProMedica Health SystemAST [Catalytic activity/Vol]16 U/L0 - 41 U/L Pro[facility]ica Health SystemBilirubin [Mass/Vol]0.4 mg/dL0.3 - 1.2 mg/dLProMedica Health SystemCalcium [Mass/Vol]9.5 mg/dL8.5 - 10.5 mg/dLProMedica Health System Chloride [Moles/Vol]105 mmol/L98 - 109 mmol/[facility] Health SystemCO2 [Moles/Vol]27 mmol/L22 - 32 mmol/[facility] SystemCreatinine [Mass/Vol] 0.74 mg/dL0.40 - 1.00 mg/dLDayton Osteopathic HospitalComment on above:METHOD TRACEABLE TO IDMD STANDARDeGFR (CKD-EPI)non-race dependent- [facility] HospitalComment on above: Reported eGFR is based on the CKD-EPI 2020 equation that does not use a race coefficient. Glucose [Mass/Vol]76 mg/dL65 - 99 mg/dLDayton Osteopathic HospitalPotassium [Moles/Vol]4.4 mmol/L3.5 - 5.0 mmol/[facility] SystemProtein [Mass/Vol] 7.6 g/dL6.0 - 8.0 g/dLAtrium Health Unionodium [Moles/Vol]142 mmol/L134 - 146 mmol/[facility] Medical CenterUrea nitrogen [Mass/Vol]12 mg/dL5 - 23 mg/dL [facility] HospitalHGB A1C (GLYCO-HGB)on 64-49-1008Stnmkjt [Mass/Vol]105 mg/dLNormalUniversity Hospitals Parma Medical CenterComment on above:Performed By: #### CUATE RAMOS, 14024-2, 3016-3 #### [facility] ([id number]) [address] [facility] [address] [place], [place] [address]XuD3q (Bld) [Mass fraction]5.3 %Normal4.4-5.6University Hospitals Parma Medical CenterComment on above:Result Comment: NOTE ADA Guidelines Result HgbA1c Normal : less than 5.7 % Prediabetes : 5.7 % to 6.4 % Diabetes : > 6.4 % Use with caution in patients with abnormal hemoglobin variants as the half-life of red blood cells and in vivo glycation rates are affected.Performed By: #### CUATE RAMOS, 66887-6, 3016-3 #### [facility] ([id number]) [address] [place], [place] [address]Yiemzcueck A1con 73-57-9026Zxwezef glucose Estimated from glycated hemoglobin (Bld) [Mass/Vol]105 mg/dLCleveland Clinic Medina HospitalIntegra Telecom XemujdWfH5l (Bld) [Mass fraction]5.3 %4.4 - 5.6 %[facility] BackTrack [facility] HospitalComment on above:NOTE ADA Guidelines Result HgbA1c Normal : less than 5.7 % Prediabetes : 5.7 % to 6.4 % Diabetes : > 6.4 % Use with caution in patients with abnormal hemoglobin variants as the half-life of red blood cells and in vivo glycation rates are affected. [facility] BackTrack [facility] HospitalLipid 1996 panelon 22-69-2551Gpeamhyxytt [Mass/Vol]194 mg/dL150 - 200 mg/dLCleveland Clinic Medina HospitalIntegra Telecom [facility] HospitalCholesterol in HDL [Mass/Vol]53 mg/dL 39 - PINF mg/dLCleveland Clinic Medina HospitalIntegra Telecom [facility] HospitalComment on above: HDL <40 mg/dL - High Risk HDL > or = 40mg/dL- Desirable HDL >60 mg/dL - Negative Risk Cholesterol in LDL [Mass/Vol]120 mg/dLNINF - 130 mg/dLCleveland Clinic Medina HospitalIntegra Telecom [facility] Comment on above: LDL <100 mg/dL - Desirable LDL >160 mg/dL - High Risk Cholesterol in VLDL [Mass/Vol]21 mg/dL0 - 30 mg/dLCleveland Clinic Medina HospitalIntegra Telecom [facility] Cholesterol.total/Cholesterol in HDL [Mass ratio]3.7 {ratio}1.0 - 5.0[facility] HospitalIntegra Telecom [facility] HospitalTriglyceride [Mass/Vol]107 mg/dL27 - 150 mg/dLCleveland Clinic Medina HospitalIntegra Telecom [facility] HospitalCholesterol [Mass/Vol]194 mg/aUMtodpi028-910SjvRdekmkUniversity Hospitals Parma Medical Center Comment on above:Performed By: ###Carly RAMOS CMP, 82031-8, 6-3 #### [facility] ([id number]) [address], [address] [place], [place] [address]Agsrbitpogw in HDL [Mass/Vol]53 mg/dLNormal>39ProKettering Health Miamisburg HospitalComment on above:Result Comment: HDL <40 mg/dL - High Risk HDL > or = 40mg/dL- Desirable HDL >60 mg/dL - Negative Risk Performed By: ###Carly RAMOS CMP, 03971-0, 6- #### [facility] ([id number]) [address], [address] [place], [place] [address]Zxgbdbpoapm in LDL [Mass/Vol]120 mg/dLNormal<130ProKettering Health Miamisburg HospitalComment on above:Result Comment: LDL <100 mg/dL - Desirable LDL >160 mg/dL - High Risk Performed By: ###Carly RAMOS CMP, 03254-8, 3015- #### [facility] ([id number]) [address], [address] [place], [place] [address]Pvkrioepkjn in VLDL [Mass/Vol]21 mg/dLNormal0-30ProKettering Health Miamisburg HospitalComment on above:Performed By: ###Carly RAMOS CMP, 42168-8, 6-3 #### [facility] ([id number]) [address], [address] [place], [place] [address]SQCSOZHHSHH:HDL3.6Eiwhhl5.0-5.0ProKettering Health Miamisburg HospitalComment on above:Performed By: #### RICHARD CUATE, 67002-4, 3016-3 #### [facility] ([id number]) [address], [address] [place], [place] [address]Sfhnijdqvnbg [Mass/Vol]107 mg/cPEahrvb84-462RmzQahgxd [place] HospitalComment on above:Performed By: #### CUATE RAMOS, 05385-1, 3016-3 #### [facility] ([id number]) [address], [address] [place], [place] [address]Vd Panel Informationon 83-29-4519BbvRitbimHolzer Health SystemTSHon 69-72-2979ERC Qn1.36 m[IU]/LProMedThe University of [place] Medical CenterTS Qnon 78-61-6539VbeIexiaaHolzer Health SystemTSH1.36 uIU/mLNormal0.49-4.67ProBlanchard Valley Health System Blanchard Valley HospitalComment on above:Performed By: #### CUATE RAMOS, 73181-1, 3016-3 #### [facility] ([id number]) [address], [address] [place], [place] [address]OW ABDOMEN LMTDon 69-22-8568LO ABDOMEN LMTDUS ABDOMEN LMTD History: Epigastric pain. Gas and [...] in its entirety with no abnormalities demonstrated. Onscanning of the right upper quadrant no hydronephrosis or other gross abnormalities of the right kidney are displayed. IMPRESSION: Small amount of sludge displayed in the gallbladder with no calculi. Otherwise negative ultrasound of the right upper quadrant Finalized by Maverick Clarke MD on 11/04/2023 11:28 AMNormalProMedica Little Falls HospitalHEP B SURFACE ANTIGEN SCREENon 60-86-9513VXxPy ScreenNegativeNormal NegativeThe [facility] on above:Performed By: #### HBSANS #### [facility] [address] [place] [address] Dr. Helen MylesPATITIS C VIRUS AB W/ REFLEX QUANTon 98-61-4860HLH AB Non-ReactiveNormalNon ReactiveThe [facility] HospitalComkalamazoo psychiatric hospital on above:Performed By: #### HCVPCRR #### [facility] [address] [place] [address] Dr. Helen MorrisonInterpretation:CommentNormalThe [facility] on above:Result Comment: Not infected with HCV unless early or acute infection is suspected (which may be delayed in an immunocompromised individual), or other evidence exists to indicate HCV infection.Performed By: #### HCVPCRR #### [place] [address] Dr[address] Helen MorrisonHIV 1 AND 2 WITH REFLEXon 18-63-9258QCY Screen 4th Generation wRfxNon-ReactiveNormalNon ReactiveThe [facility] on above:Result Comment: HIV Negative HIV-1/HIV-2 antibodies and HIV-1 p24 antigen were NOT detected. There is no laboratory evidence of HIV infection.Performed By: #### [id number] #### [place] [address] Dr. Helen MorrisonRPR QUANTon [id number] Plasma Reagin, QuantNon-Reactive NormalNonRea<1:1The [facility] on above:Result Comment: Please Note: This test does not meet current guidelines for screening and diagnosis of syphilis. This test is intended for following treatment response in patients being treated for syphilis infection. To screen for syphilis infection, a reflex cascade that includes both RPR and a treponema-specific assay should be utilized, such as Treponema pallidum (Syphilis) Screening [place] ([id number]) or Rapid Plasma Reagin (RPR) Test With Reflex to Quantitative RPR and Confirmatory Treponema pallidum Antibodies ([id number]).Performed By: #### RPRQ #### [address] [address] [address] Helen Navarrete AB IGGon 29-26-3268Dmblgjv Antibodies, IgG2.11 index NormalImmune >0.99The [facility] on above:Result Comment: Non- immune <0.90 Equivocal 0.90 - 0.99 Immune >0.99Performed By: #### RUBIGG #### [facility] [address] [place] [address] Dr. Helen MorrisonBOX TEST SENT OUTon 86-84-3408KBEJ TO REF LAB12/14/22[facility] on above:Performed By: #### TNS #### [facility] [address] [place] [address] Dr. Helen FlorenceC AUTO DIFFon [id number] #0.0 103/ulNormal0.0-0.1The [facility] on above:Performed By: #### CBC #### [facility] [address] [place] [address] Dr. Helen MorrisonBasophils/100 WBC (Bld)0.4 %Normal0.2-2.0[facility] Comment on above:Performed By: #### CBC #### [facility] [address] [place] [address] Dr. Helen Agosto #0.1 103/ulNormal0.0-0.7The [facility] on above: Performed By: #### CBC #### [facility] [address] [place] [address] Dr. Helen Irvinosinophils/100 WBC (Bld)0.7 %Critically low0.9-7.0The [facility] on above:Performed By: #### CBC #### [facility] [address] [place] [address] Dr. Helen Irvinrythrocyte distribution width (RBC) [Ratio]12.3 %Snevva24.0-15.0 The [facility] Hospital[facility] on above:Performed By: #### CBC #### [facility] [address] [place] [address] Dr. Helen MorrisonHematocrit (Bld) [Volume fraction]34.8 %Critically low36.0-48.0 The [facility] HospitalComment on above:Performed By: #### CBC #### [facility] [address] [address] [address] Helen MorrisonHemoglobin (Bld) [Mass/Vol]11.8 g/dLCritically low12.0-16.0The [facility] HospitalComment on above:Performed By: #### CBC #### [facility] [address] [address] [address] Helen MorrisonIG #0.04 10e3/ulCritically high0.00-0.03The [facility] Comment on above:Performed By: #### CBC #### [facility] [address] [place] [address] Dr. Helen MorrisonIG %0.6 %Critically high0.0-0.5The [facility] HospitalComment on above:Performed By: #### CBC #### [facility] [address] [place] [address] Dr. Helen Rivera #1.1 103/ulCritically low1.2-3.8The [facility] Comment on above:Performed By: #### CBC #### [facility] [address] [place] [address] Dr. Helen Vumphocytes/100 WBC (Bld)15.2 %Critically low20.5-60.0The [facility] Hospital[facility] on above:Performed By: #### CBC #### [facility] [address] [place] [address] Dr. Helen MorrisonMANUAL DIFF REQNONormalThe [facility] HospitalComment on above: Performed By: #### CBC #### [facility] [address] [address] [address] Helen Alston (RBC) [Entitic mass]30.3 xyUmeytj02.7-34.0The [facility] HospitalComment on above:Performed By: #### CBC #### [facility] [address] [address] [address] Helen DimasHC (RBC) [Mass/Vol]33.9 g/dYErwopj46.9-35.2The [facility] HospitalComment on above:Performed By: #### CBC #### [facility] [address] [place] [address] Dr. Helen DimasV (RBC) [Entitic vol]89.2 nBWzxonv19.0-99.0The [facility] HospitalComment on above:Performed By: #### CBC #### [facility] [address] [place] [address] Dr. Helen Parada #0.6 103/ulNormal0.3-0.8The [facility] Hospital[facility] on above:Performed By: #### CBC #### [facility] [address] [place] [address] Dr. Helen Fournierocytes/100 WBC (Bld)8.2 %Normal1.7-12.0The [facility] Comment on above:Performed By: #### CBC #### [facility] [address] [place] [address] Dr. Helen Mott #5.4 103/ulNormal1.4-6.5The [facility] HospitalComment on above:Performed By: #### CBC #### [facility] [address] [place] [address] Dr. Helen Mcfarlaneutrophils/100 WBC (Bld)74.9 %Ryuetl61.0-75.0The [facility] on above:Performed By: #### CBC #### [facility] [address] [place] [address] Dr. Helen Luquelet mean volume (Bld) [Entitic vol]10.3 fLNormal9.5-13.5The [facility] on above:Performed By: #### CBC #### [facility] [address] [place] [address] Dr. Helen ThompsonT247 103/ksOevbln898-504Onp [facility] HospitalComment on above: Performed By: #### CBC #### [facility] [address] [place] [address] Dr. Helen MorrisonRBC3.90 106/ulCritically low4.20-5.40The [facility] on above:Performed By: #### CBC #### [facility] [address] [place] [address] Dr. Helen MorrisonWBC7.2 103/ulNormal4.0-11.0The [facility] HospitalComment on above: Performed By: #### CBC #### [facility] [address] [place] [address] Dr. Helen MorrisonCULTURE URINEon 73-07-7462NFOXZPT URINECulture Observations: NO GROWTH.NormalThe [facility] HospitalCom[facility] on above:Performed By: #### URCX #### [facility] [address] [place] [address] Dr. Helen MorrisonGLYCOHEMOGLOBIN A1Con 06-62-0006ZLS RECOMMENDATIONSEE BELOWNormal The [facility] on above:Result Comment: ADA RECOMMENDED LIMIT 4.0 - 6.0 ADA THERAPEUTIC TARGET < 7.0 ACTION SUGGESTED > 7.0Performed By: #### A1C #### [facility] [address] [place] [address] Dr. Helen MorrisonGlucose [Mass/Vol]100 mg/dLNormalThe [facility] on above:Performed By: #### A1C #### [facility] [address] [place] [address] Dr. Helen MorrisonHbA1c (Bld) [Mass fraction]5.1 %Normal4.5-6.2The [facility] on above:Performed By: #### A1C #### [facility] [address] [place] [address] Dr. Helen MorrisonTSHon 30-61-3891TJM0.025 uIU/mLNormal0.358-3.740The [facility] on above:Performed By: #### TSH #### [facility] [address] [place] [address] Dr. Helen MorrisonTYPE AND SCREENon 40-12-0805XDOO AND SCREENNegativeMadison HealthComment on above:Performed By: #### TNS #### [facility] [address] [address] [address] Helen Pace PREG TVon 26-57-9746EK PREG TVEXAMINATION: US PREG TV HISTORY: Missed period COMPARISON: [...] Electronically authenticated by: JENIFER OCONNELL Date: 2022-11-22 15:37[facility] HealthProgress Noteon 82-55-7152Wdyebrfdxhnsi Authentication Interface Message TextCHIEF COMPLAINT: clubfoot evaluation.HISTORY OF PRESENT ILLNESS: Delores Yusuf is a 27 y.o.-year-old femalewho is with her first child. She has been seen at her [facility] and her baby has been diagnosed as having a clubfoot by ultrasoundwithout any other abnormalities identified. She has been sent to my office forfurther evaluation and management. Delores reportsthat her so farhas been going quite well [...] clubfoot on the fetus with no other abnormalitiesidentified.DIAGNOSIS/IMPRESSION: clubfoot.DISCUSSION/TREATMENT PLAN: At this time, I discussed Ponseti method clubfoottreatment at length with Delores including casting, possible tenotomy,long-term bracing, possible anterior tibial tendon transfer and long- termoutlook. All of her questions were answered today and she agrees to comply withfull Ponseti method treatment including all of the above named treatmentsespecially bracing until at least age 3. Delores is due in October and I willhave her contact my office after the baby is born for an evaluation appointmentafter discharge from the hospital. I certainly would be happy to speak withthem sooner should they have any questions. I will likely institute her babysPonseti casting shortly thereafter once I have had a chance to see the babyafter and complete a full orthopaedic evaluation. Counseling and/orcoordination of care was greater than 20 minutes which is more than 50% of thetotal time of 20 minutes spent on the encounter.[facility] Vital Signs Date TimeVital SignValuePerforming CeohyvqfbJzznwjrt09-85-0104 15:51-0500Body mass index (BMI) [Ratio]26.07 kg/m2Alesha ESCOBAR Work Phone: [facility] CenterMpikqdlitq31-60-4867 15:51-0500Body oncnws45.6 kg Alesha ESCOBAR Work Phone: [facility] CenterMvqnwcernu57-92-2100 15:51-0500Diastolic blood smtgahag97 mm[Hg]Alesha ESCOBAR Work Phone: [facility] CenterNikzzmgcbb06-43-3414 15:51-0500Systolic blood nykjfrah126 mm[Hg]Alesha ESCOBAR Work Phone: [facility] CenterHxozjefyxv31-30-1951 06:50-0500Body ylhizc292.94 Nenita Hodge NP-C Work Phone: [facility]02-14-2025 06:50-0500 Body perrrw57.23 kgHenna Hodge NP-C Work Phone: [facility]12-17-2024 08:34-0500 Body mass index (BMI) [Ratio]26.23 kg/m2Alesha Melvina ESCOBAR Work Phone: [facility] CenterDnkqybklon09-66-2393 08:34-0500Body ursuhv17.96 kgAlesha Melvina ESCOBAR Work Phone: [facility] CenterQzereeinpt61-47-6970 08:34-0500Diastolic blood kuafbdsz63 mm[Hg]Alesha Melvina ESCOBAR Work Phone: [facility] CenterXnnpbjutmc37-58-3707 08:34-0500Systolic blood mpomgofh942 mm[Hg]Alesha Melvina ESCOBAR Work Phone: [facility] CenterSboofzlokm34-11-8250 09:38-0400Body cbelxn263.4 cmVlexis Hodge MANUFACTURING ASSISTANT-BLANK DRILLER Work Phone: [facility]04-15-2024 09:38-0400Body mass index (BMI) [Ratio]28.77 kg/s0OwkrgzjHenna Hodge MANUFACTURING ASSISTANT-BLANK DRILLER Work Phone: [facility]04-15-2024 09:38-0400Body .5 [degF]Henna Hodge MANUFACTURING ASSISTANT-BLANK DRILLER Work Phone: [facility]04-15-2024 09:38-0400Body jrlvop05.81 kgHenna Hodge MANUFACTURING ASSISTANT-BLANK DRILLER Work Phone: [facility]04-15-2024 09:38-0400 Respiratory rate18 /minValealan Hodge MANUFACTURING ASSISTANT-BLANK DRILLER Work Phone: [facility]04-15-2024 09:38-5439HcB7% (BldA) [Mass fraction]94 %Henna Hodge MANUFACTURING ASSISTANT-BLANK DRILLER Work Phone: [facility]03-13-2024 12:54-0400Body musfpw412.4 cmBrooke Hicks MD Work Phone: [facility]03-13-2024 12:54-0400Body mass index (BMI) [Ratio]28.71 kg/r8JrcterwiuysBrooke Hicks MD Work Phone: [facility]03-13-2024 12:54-0400Body izjppl86.68 kgBrooke Hicks MD Work Phone: [facility]03-13-2024 12:54-0400Diastolic blood yhporrrj29 mm[Hg]Brooke Hicks MD Work Phone: [facility]03-13-2024 12:54-0400Systolic blood vmujzmhc181 mm[Hg]Brooke Hicks MD Work Phone: [facility]02-27-2024 09:01-0500Body vrbwep929.4 cmVkeyonnaalexiateresa TellesHodge MANUFACTURING ASSISTANT-BLANK DRILLER Work Phone: [facility]02-27-2024 09:01-0500Body mass index (BMI) [Ratio]28.4 kg/c3JuytgzsHenna Tellesillo MANUFACTURING ASSISTANT-BLANK DRILLER Work Phone: [facility]02-27-2024 09:01-0500Body kuwdbctzngw17.71 [degF]Henna Tellesillo MANUFACTURING ASSISTANT-BLANK DRILLER Work Phone: [facility]02-27-2024 09:01-0500Body .95 kgHenna Tellesillo MANUFACTURING ASSISTANT-BLANK DRILLER Work Phone: [facility]02-27-2024 09:01-0500Diastolic blood tvtccjyt61 mm[Hg]Henna Tellesillo MANUFACTURING ASSISTANT-BLANK DRILLER Work Phone: [facility]02-27-2024 09:01-0500Heart rate 68 /minCindyalan Hodge MANUFACTURING ASSISTANT-BLANK DRILLER Work Phone: [facility]02-27-2024 09:01-0500 Respiratory rate20 /minHenna Hodge MANUFACTURING ASSISTANT-BLANK DRILLER Work Phone: [facility]02-27-2024 09:01-3537MfP8% (BldA) [Mass fraction]97 %Hennaallie Tellesillo MANUFACTURING ASSISTANT-BLANK DRILLER Work Phone: [facility] Tykdmm60-50-7411 09:01-0500Systolic blood vcdyyhho229 mm[Hg]Henna Tellesillo MANUFACTURING ASSISTANT-BLANK DRILLER Work Phone: [facility] Frygbz72-56-0746 15:15-0400Body .67 cmAyani Logan Other [employer] Other 03-29-2022 15:15-0400Body mass index (BMI) [Ratio] 25.93 kg/i1KtuxlSima Logan Other [employer] Other 03-29-2022 15:15-0400Body .4 [degF]Sima Logan Other [employer] Other 03-29-2022 15:15-0400Body dfbane71.24 kgSima Logan Other [employer] Other 03-29-2022 15:15-0400Respiratory rate18 /minSima Logan Other [employer] Other 03-29-2022 15:15-3483GlO8% (BldA) [Mass fraction]98 % Sima Logan Other [employer] Other Encounters Encounter DateEncounter TypeCare ProviderFacilityStart: 03-31-2025 End: 99-98-4871Bopxbrt encounter Nguyen ASTUDILLO-[facility] Work Phone: Start: 03-31-2025 End: 40-56-9181uxajnpidivYonpcbe J Castillo NP-C Work Phone: [facility] Work Phone: Start: 11-04-2024 End: 63-06-2694Arblhg outpatient visit 15 minutesAlesha ESCOBAR Work Phone: [facility] OBComment on above:Rash, skin; Fibroadenoma of breast, right; Encounter for initial prescription of contraceptive pillsStart: 11-04-2024 End: 49-67-5488vzyjmdgldlHZF RAMEYNot AvailableStart: 11-04-2024 End: 10-61-0437Iqkgjo Bill ESCOBAR Work Phone: [facility] OBStart: 11-04-2024 End: 69-12-9643Oqkvxh Bill ESCOBAR Work Phone: [facility] OBStart: 10-16-2024 End: 32-91-5374Qqjcxcl encounter procedureHenna ASTUDILLO Work Phone: [facility] Work Phone: Start: 10-16-2024 End: 57-27-1994hhscnhjtuuZgdysbsDolores ASTUDILLO Work Phone: [facility] Work Phone: Start: 08-20-2024 End: 61-77-8570Hknxuknev Result EncounterAmy Melvina ESCOBAR Work Phone: [facility] External Department UnsolicitedStart: 08-20-2024 End: 19-84-8233Rvfogvvus Result EncounterAmy Melvina ESCOBAR Work Phone: [facility] External Department UnsolicitedStart: 08-18-2024 End: 26-75-4746Orhqiw Bill ESCOBAR Work Phone: [facility] OBStart: 08-18-2024 End: 95-81-6712Oyxalf Bill ESCOBAR Work Phone: [facility] OBStart: 08-18-2024 End: 50-13-0699Vyoxuo outpatient visit 15 minutesAmy Melvina ESCOBAR Work Phone: [facility] OBComment on above:Breast lump on right side at 11 o'clock position; Encounter for initial prescription of contraceptive pillsStart: 08-18-2024 End: 03-75-1911rqixbdzrygSAL RAMEYNot AvailableStart: 03-09-2024 End: 24-75-2531zmhvtoycsbEHTJTJF CASTILLOFacility:EU BellevueStart: 03-09-2024 End: 84-43-4834Cwnrlqi encounter procedurePaainsley PEDRO [facility] start: 12-16-2023 End: 49-75-5957todgayelvlKXJEIBW [facility] Campustart: 21-28-4493Ucudabkij for general adult medical examination without abnormal findingsBanner [facility]bird [facility] HospitalStart: 12-16-2023 End: 75-91-1395jgijdukcjaQLFLLPPParkview Regional Hospital [facility] Start: 37-54-4158Vwmvenrmg for general adult medical examination without abnormal findingsParkview Regional Hospital Ambulatory PPGStart: 12-16-2023 End: 79-13-9560Ygdlfke encounter procedureValealan Hodge MANUFACTURING ASSISTANT-BLANK DRILLER Work Phone: [facility] Work Phone: Start: 12-16-2023 End: 80-35-5407Xgvuwndz preventive med est patient 18-39 yrsHenna Hodge MANUFACTURING ASSISTANT-BLANK DRILLER Work Phone: [facility] Internal Medicine - Family MedicineComment on above:Annual physical exam (Primary Dx); Blood tests for routine general physical examination; Epigastric painStart: 12-16-2023 End: 50-46-3000Erdrremv examinationHenna Hodge MANUFACTURING ASSISTANT-BLANK DRILLER Work Phone: [facility] HospitalPro[facility] Hospitaltart: 11-13-2023 End: 61-44-1846tbjmlkmiokDPCPQRQEDDW M [facility] Start: 11-13-2023 End: 29-88-6991Cmqdjt outpatient new 30 minutesBrooke Hicks MD Work Phone: [facility] General SurgeryComment on above: Gallbladder sludge (Primary Dx); Epigastric painStart: 46-63-9830Boksex OnlyCindyalan Hodge MANUFACTURING ASSISTANT-BLANK DRILLER Work Phone: [facility] Internal Medicine - Family MedicineComment on above:Gallbladder sludge (Primary Dx); Epigastric painStart: 11-04-2023 End: 31-27-8183uukzwmkukfDFKNAYRClearSky [facility] Hospital [facility] HospitalStart: 63-68-8495mrgynhatarQLFXIZJ CASTCOVENANT HEALTH LEVELLANDFacility:EU [place]uskyStart: 10-29-2023 End: 28-82-1073xfqwbffdxkURYEJOTGrays [facility] Start: 10-29-2023 End: 34-56-7702Ptaswh outpatient new 30 minutesSarateresa Mookie Hodge MANUFACTURING ASSISTANT-BLANK DRILLER Work Phone: [facility] Internal Medicine - Family MedicineComment on above:Kidney stones (Primary Dx); Epigastric painStart: 09-60-7117nwzrhjdqupEP BASILIO MALINA .Facility:T7Vxxaj: 12-14-2022 End: 75-91-2267xzpeaascajHN BASILIO MALINA .Facility:Z2Wzxll: 11-22-2022 End: 91-95-2726vkoekivsoqZG BASILIO MALINA .Facility:R1Rsovr: 12-04-2021 End: 32-92-5213crgtnymvmdPhgco Keller Other [employer] Other Start: 90-83-9128Htxflrqtc encounterSima Qureshi [facility] Michigantart: 11-28-2021 End: 05-41-2112ikprvzwiqiAtiip Keller Other [facility] [employer] Other Start: 78-37-6043Ktxbxp outpatient visit 25 minutes Sima BobbyG [facility] Care ClydeStart: 09-24-2017 End: 17-65-5421MesvpeckwqNPWMShelby Memorial Hospital Procedures DateProcedureProcedure DetailPerforming ClinicianStart: 07-70-6572Hqfxmyyqdso of right breastValerie Hodge DELICATESSEN GOODS STOCK CLERK-C Work Phone: Start: 96-54-6429Kseowhzzngtiqdx of right breast Henna Hodge DELICATESSEN GOODS STOCK CLERK-C Work Phone: Start: 87-14-4616PTZ of bilateral breasts with contrastValerie Hodge DELICATESSEN GOODS STOCK CLERK-C Work Phone: Start: 17-49-7209SJ TOMOSYNTHESIS DIAGNOSTIC BIAlesha ESCOBAR Work Phone: Start: 84-54-4707Wh breast uni real time with image limitedAlesha ESCOBAR Work Phone: Start: 19-65-9649Pfmdf depression screening assessment Henna Hodge MANUFACTURING ASSISTANT-BLANK DRILLER Work Phone: Start: 02-77-3970Mggjt depression screening assessment Henna Hodge MANUFACTURING ASSISTANT-BLANK DRILLER Work Phone: Start: 27-78-7082Uzxwpzalhmm observation [Identifier] in Cervix by Cyto stainValerie Hodge MANUFACTURING ASSISTANT-BLANK DRILLER Work Phone: Cervical biopsyPatrick PEDRO ColonoscopyBluegrass Community Hospitalk PEDRO Plan of Treatment DateCare ActivityDetailAuthorStart: 34-48-4753BKjM,Tdap and Td Vaccines (2 - Td or Tdap)DTaP,Tdap and Td Vaccines (2 - Td or Tdap)[facility] BackTrack SystemStart: 94-83-7931Jkuhhaunk for malignant neoplasm of cervixNOMS HealthcareStart: 45-38-5915Lqyocnjdd for malignant neoplasm of cervixNOMS HealthcareStart: 62-57-8122Gpuhkybsl for malignant neoplasm of cervixPap SmearNOMS Healthcare Start: 14-94-2738Tcdllcfhl vaccinationInfluenza Vaccine (#1)[facility] Start: 80-73-4406Ucubq BMI ScreeningAdult BMI ScreeningDay[facility]opathic [facility] Start: 73-01-1068Ntjfzlnohv ScreeningDepression ScreeningDayton Osteopathic Hospital Start: 44-64-3533Kxvpwlm ScreeningTobacco ScreeningOhioHealth Hardin Memorial Hospital SystemStart: 11-04-2024 End: 07-22-0931Kjmzcjk encounter /05/2025 3:20 PM EST Office Visit [facility] [address] [place] [phone] Alesha Joy PA [address] [place] [address] [facility] OBComment on above:ArrivedStart: 11-04-2024 End: 39-63-1511RE Breast - right DiagnosticRight diagnostic mammogram Imaging Routine Fibroadenoma of breast, right Expected: 11/04/2024 (Approximate), Expires: 01/04/2026[facility] Work Phone: comment on above:Expected: 11/04/2024 (Approximate), Expires: 01/04/2026Start: 34-07-6488Eluah BMI Follow Up PlanAdult BMI Follow Up PlanOhioHealth Hardin Memorial Hospital SystemStart: 90-67-6317Dnakz BMI ScreeningAdult BMI ScreeningOhioHealth Hardin Memorial Hospital SystemStart: 35-36-6887Nyqgtywteb ScreeningDepression ScreeningOhioHealth Hardin Memorial Hospital SystemStart: 71-57-5977Yheibqj ScreeningTobacco ScreeningOhioHealth Hardin Memorial Hospital SystemStart: 09-15-2024 End: 72-75-9127Cuphqtr encounter mpvlkvbke47/14/2025 8:30 AM EST Office Visit [facility] [address] [place] [phone] Alesha Joy, PA [address] [place] [address] [facility] OBStart: 08-18-2024 End: 52-85-6159PT Breast - bilateral DiagnosticBilateral diagnostic mammogram Imaging Routine Breast lump on right side at 11 o'clock position Expected: 08/18/2024 (Approximate), Expires: 10/19/2025[facility] Work Phone: comment on above:Expected: 08/18/2024 (Approximate), Expires: 10/19/2025Start: 08-18-2024 End: 77-90-6281Ovhoibj encounter dgzbwyovg51/17/2024 8:30 AM EST Office Visit [facility] [address] [place] [phone] Alesha Joy PA [address] [place], [place] [id number] ArrivedHOLLYWOOD [facility] OBComment on above:ArrivedStart: 05-03-2024 Influenza vaccinationMineral Area Regional Medical CenterStart: 12-16-2023 End: 71-83-8911Tmqboja encounter aqwtmrguz53/15/2024 9:40 AM EDT Office Visit [facility] [address] [place] [phone] Henna Hodge, MANUFACTURING ASSISTANT-BLANK DRILLER [address] [place] [address] [facility] - Family MedicineStart: 10-29-2023 End: 45-29-2729YM Abdomen limitedUltrasound abdomen limited Imaging Routine Epigastric pain Expected: 10/29/2023, Expires: 10/29/2024[facility] Work Phone: Comment on above:Expected: 10/29/2023, Expires: 10/29/2024Start: 95-54-8041UXLFC-19 Vaccine ()COVID-19 Vaccine ()[facility] SystemStart: 10-23-7427Rizrrrydb vaccinationInfluenza VaccineProMansfield Hospital End: 69-51-6615Mcqdm metabolic 2000 panel - Serum or PlasmaBasic Metabolic Panel Lab Routine Epigastric pain 1 Occurrences starting 11/13/2023 until 11/12/2024 [facility]Comment [facility]:1 Occurrences starting 11/13/2023 until 11/12/2024 End: 79-06-3967TTB W Auto Differential panel - BloodCBC auto differential Lab Routine Epigastric pain 1 Occurrences starting 11/13/2023 until 11/12/2024 [facility] Work Phone: Comment on above:1 Occurrences starting 11/13/2023 until 11/12/2024 End: 12-66-7098Rvkqop [Enzymatic activity/volume] in Serum or PlasmaLipase Lab Routine Epigastric pain 1 Occurrences starting 11/13/2023 until 11/12/2024 [facility] HospitalComment on above:1 Occurrences starting 11/13/2023 until 11/12/2024 End: 58-84-3076Vvobi panelLiver panel Lab Routine Epigastric pain 1 Occurrences starting 11/13/2023 until 11/12/2024[facility] HospitalComment on above:1 Occurrences starting 11/13/2023 until 11/12/2024 Immunizations Immunization DateImmunizationNotesCare XxwsnlysPngqvbux48-97-7769igghncaga virus vaccine, unspecified formulationValerie Naveen VENTURA Work Phone: [facility] Payers DatePayer CategoryPayerPolicy [id number]-[id number] [id number] [id number] Health Insurance KRISTIN BARAJAS 1.2.840.740761.1.13.693.2.7.9.392389.709[id number] [id number] 2.840.1.556899.3.57[id number] 2.840.1.621011.3.57[id number] 2.840.1.791200.3.579.[id number] 2.840.1.069512.3.57[id number] 2.840.1.423254.3.57[id number] 2.840.1.268131.3.579.[id number] 2.840.1.567680.3.579.[id number] 2.840.1.059334.3.57[id number] 2.840.1.086793.3.57[id number] 2.840.1.991334.3.579.2.350814-45-4287Wefe-bur83002130828-34-1990Jsirruf [id number] 2.16.840.1.8[id number] 2.16.840.1.839107.3.579.2.531 Social History DateTypeDetailFacilityUnknown if ever smokedNorth GlobeRanger Other Start: 06-17-2023 End: 74-29-8660Fik [facility]Tobacco smoking statusNo Smoking Status EnteredExec[facility] Lat[facility] start: 10-08-2017 End: 24-73-3784Ologgcm smoking status NHISNever smoked tobaccoNOMS Healthcare Start: 08-05-2023 End: 79-10-3026Yawtuhkid beverage intakeLifetime non-drinker (finding)[facility] SystemStart: 06-17-2023 End: 72-37-6050Zagxhll of Social functionOhioHealth Hardin Memorial Hospital SystemStart: 37-23-2456Lbz assigned at birthNot on fileOhioHealth Hardin Memorial Hospital SystemStart: 85-30-3213EuoPumvkm (finding)[facility] 1990 [facility]: 11-14-2022 Adolescent depression screening phxhhymulc1QjrBislgdDayton [facility] Clinical Notes 11-28-2021 to 11-04-2024 Note Date & YzpyTvapHdlamxng24-83-8109 History of Present illness Narrative* Melissa Higuera MA - 11/04/2024 3:20 PM EST Reason for Appointment: Patient ID: Delores Yusuf is a 34 y.o. female who presents for Breast Pain (Pt present today for right side breast issues. Pt complains of having a small rash that itches on the right side ofbreast. And a small patch on top of her areola and also on the right side of her breast. Pt also would like to discuss the MRI that was done in August the results of it. ) Patient presents today for Right side breast issues. MEDICATIONS Current Outpatient Medications Medication Instructions norethindrone-ethinyl estradiol-iron (Lo Loestrin Fe) 1 MG-10 [...] SYSTEMS Review of Systems: Review of Systems All other systems reviewed and are negative. OBJECTIVE Objective: Physical Exam Constitutional: Appearance: Normal appearance. She is well-developed. Genitourinary: Vulva normal. Cardiovascular: Rate and Rhythm: Normal rate and regular rhythm. Pulmonary: Effort: Pulmonary effort is normal. Breath sounds: Normal breath sounds. Abdominal: General: Bowel sounds are normal. There is no distension. Palpations: Abdomen is soft. Tenderness: There is no abdominal tenderness. There is no guarding or rebound. Musculoskeletal: General: No swelling. Normal range of motion. Right lower leg: No edema. Left lower leg: No edema. Neurological: Mental Status: She is alert and oriented to person, place, and time. Skin: General: Skin is warm and dry. Psychiatric: Mood and Affect: Mood normal. Behavior: Behavior normal. Vitals and nursing note reviewed. Exam conducted with a chief talent officer present. Vitals: Estimated body mass index is 26.07 kg/m as calculated from the following: Height as of 01/31/23: 5' 1 . Weight as of this encounter: 138 lb. BP: 122/74 Patient's last menstrual period was 10/30/2024 (approximate). ASSESSMENT & PLAN ICD-10-CM 1. Rash, skin R21 Pt present today with complaints of a small rash that is itching on her right side breast. Pt complains of a small dry patch above the areola that she is also concerned about. Pt would like Alesha Littlejohn review her MRI results w/her. Documented by Melissa Higuera MA on behalf of: SHAWN Abdullahi documented in this encounterMineral Area Regional Medical CenterMlbuigquwa15-37-9737 History of Present illness Narrative* SHAWN Abdullahi - 08/18/2024 8:30 AM EST Images from the original note were not included. Reason for Appointment: Patient ID: Delores Yusuf is a 33 y.o. female who [...] nursing note reviewed. Exam conducted with a chief talent officer present. Vitals: Estimated body mass index is [...] about control and a script sent in [facility]. Documented by Berenice Yao LPN on behalf of: SHAWN Abdullahi documented in this encounterMineral Area Regional Medical CenterUcjfiwivmw29-08-1978 History of Present illness Narrative* Henna Hodge, MANUFACTURING ASSISTANT-BLANK DRILLER - 12/16/2023 9:40 AM EDT Images from the original note were not included. [address] [place] [address] SUBJECTIVE: Patient ID: Radha Yusuf is a 33 y.o. female. Chief Complaint Patient presents with Annual Exam Presents for annual physical. Relates she is . Has two young children, youngest is 6 months old. OB / STEAM TUNNEL FEEDER is Dr. Martinez. She does not smoke or consume alcohol. At last visit she was seen for GERD symptoms. Had US of gallbladder done, revealed sludge. Was seenby general surgery, surgical options was discussed. Has elected not to proceed at this time. Has bee watching what she eats and is taking omeprazole. Has had 50% improvement with symptoms. Annual Exam Pertinent negatives include no chest pain, chills or fever. The following portions of the patient's history were reviewed and updated as appropriate: allergies, current medications, past family history, past medical history, past social history, past surgicalhistory and problem list. Past Surgical History: Procedure Laterality Date CERVICAL BIOPSY W/ LOOP ELECTRODE EXCISION 07/2014 COLPOSCOPY 2011 Past Medical History: Diagnosis Date Anemia Migraine Immunization History Administered Date(s) Administered COVID-19, mRNA, LNP-S, PF, 100mcg/0.5mL Dose 07/24/2021, 08/23/2021 REVIEW OF SYSTEMS: Review of Systems Constitutional: Negative for chills and fever. HENT: Negative. Eyes: Negative for visual disturbance. Respiratory: Negative for chest tightness and shortness of breath. Cardiovascular: Negative for chest pain and palpitations. Gastrointestinal: Negative. Endocrine: Negative. Genitourinary: Negative for menstrual problem and pelvic pain. Musculoskeletal: Negative. Skin: Negative. Neurological: Negative for syncope and facial asymmetry. Hematological: Does not bruise/bleed easily. Psychiatric/Behavioral: Negative. PHYSICAL EXAMINATION: Vitals: 12/16/23 0938 Resp: 18 Temp: 36.4 C (97.5 F) TempSrc: Oral SpO2: 94% Weight: 66.8 kg (147 lb 4.8 oz) Height: 152.4 cm (5') Patient noted to have elevated BMI and the following intervention(s) were applied: encouragement toexercise. Physical Exam Vitals and nursing note reviewed. [...] normal. ASSESSMENT/PLAN: Radha was seen today for annual exam. Diagnoses and all orders for this visit: Annual physical exam Blood tests for routine general physical examination - Comprehensive metabolic panel; Future - CBC auto differential; Future - Lipid profile; Future - Hemoglobin A1c; Future - TSH; Future Epigastric pain - omeprazole (PriLOSEC) 40 mg capsule; Take 1 capsule (40 mg total) by mouth in the morning. Body mass index is 28.77 kg/m . Patient noted to have elevated BMI and the following intervention(s) were applied: Discussed current weight today. Consider healthy food choices, portion control. Avoid sugary beverages and high concentrated sweets. Routine exercise regimen encouraged. Follow up with Dr. Martinez as per his direction. 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 Labs drawn in office today. ALL QUESTIONS ANSWERED Total time spent was 30 minutes: Preparing to see the patient (e.g., review of tests) Obtaining and/or reviewing separately obtained history Performing a medically appropriate examination and/or evaluation Counseling and educating the patient/family/caregiver Ordering medications, tests, or procedures Follow-up: One year LORENZO Perales 12/16/23 1028 documented in this encounterDayton [facility]03-13-2024 History of Present illness Narrative* Brooke Hicks MD - 11/13/2023 1:00 PM EDT Images from the original note were not included. Chief Complaint: Epigastric pain History of Present Illness: Radha Yusuf is a 33 y.o. female presents to the office with epigastric pain. She 1stdeveloped the symptoms while . She gave 5 [...] surgical history includes LEEP. 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 HPI Review of Systems Constitutional: Negative [...] BIOPSY W/ LOOP ELECTRODE EXCISION 07/2014 COLPOSCOPY 2012 Allergies Allergen Reactions Sulfa (Sulfonamide Antibiotics) Rash [...] patient/family/caregiver Referring and communicating with other health career manager Brooke Hicks MD [facility] [place] documented in this encounterDayton Osteopathic Hospital03-05-2024 Hospital Discharge instructions Follow Up Care 11/05/2023 11:20:16 With:MAYELA KNOWLES, Junior Blount, URL Address: [facility] [address] [place] [address] [phone] When: Unknown [facility] Isauro 02-27-2024 History of Present illness Narrative* Henna Hodge, MANUFACTURING ASSISTANT-BLANK DRILLER - 10/29/2023 9:00 AM EST Images from the original note were not included. [address] [place] [address] SUBJECTIVE: Patient ID: Radha Yusuf is [...] pain is at a severity of 5/10. Thepain is moderate. The quality of the pain [...] past medical history, past social history, past surgicalhistory and problem list. Past Surgical History: Procedure [...] and the following intervention(s) were applied: encouragement toexercise. Physical Exam Vitals and nursing note reviewed. [...] LORENZO Perales 10/29/23 0950 documented in this encounterDayton Osteopathic Hospital03-29-2022 Evaluation note* Encounter Date Diagnosis Assessment Notes Treatment Notes Treatment Clinical Notes Oct, Acute tonsillitis, unspecified e tiology (ICD-10 - J03.90) Discussed diagnosis with patient. Advised that rapid Strep test was negative today. Throat culture obtained. Will call with results in 2-5 days. Advised patient at time of results, treatment plan maychange. Will start antibiotic for bacterial coverage. Instructed [...] understanding and is agreeable to treatment plan Oct,ontact with and (suspected) exposure to other viral communicable diseases (ICD-10 - Z20.828) Oct,ther Additional time spent conducting pre-visit phone call, screening for symptoms, instructions on social distancing, application and removal of PPE, and cleaning of examination room, equipment and supplies was preformed. Patient education given for testing methodology and results. Patient care instructions given in writting by [facility] Care At Home document. [employer] Other Evaluation + Plan note No data available for this section [facility] evaluation noteNo InformationNort GlobeRanger Other Evaluation note* Diagnosis Breast lump on right side at 11 o'clock position Lump or mass in breast Encounter for initial prescription of contraceptive pills documented in this encounter [facility] HealthcareEvaluation noteNo assessment information availableTogus Va Medical Center Work Phone: Evaluation note* Diagnosis Kidney stones- Primary Calculus of kidney Epigastric pain Abdominal pain, epigastric documented in this encounter [facility] SystemEvaluation [facility]* Diagnosis Gallbladder sludge- Primary Epigastric pain Abdominal pain, epigastric documented in this encounter [facility]Evaluation [facility]* Diagnosis Gallbladder sludge- Primary Epigastric pain Abdominal pain, epigastric documented in this encounter [facility]* Diagnosis Annual physical exam- Primary Routine general medical examination at a health care facility Blood tests for routine general physical examination Laboratory examination ordered as part of a routine general medical examination Epigastric pain Abdominal pain, epigastric documented in this encounter [facility] SystemEvaluation note* Diagnosis Rash, skin Rash and other nonspecific skin eruption Fibroadenoma of breast, right Encounter for initial prescription of contraceptive pills documented in this encounter [facility] HealthcareHistory general Narrative - Reported* Type Description Date Surgical History LEEP Hospitalization Historysee above [employer] Other Instructions* Attachments The following attachments cannot be sent through Care Everywhere. * Abdominal pain (Congolese) * Kidney Stone Diet (Congolese) documented in this encounterProMedica Health SystemInstructionsNot on file documented in this encounterProMediin Health SystemInstructionsNot on file documented in this encounterProOhiohealth Shelby Hospital SystemInstructions* Attachments The following attachments cannot be sent through Care Everywhere. * Yearly Physical for Adults (Congolese) documented in this encounterProBaptist Medical [facility] Health SystemProgress note No data available for this section [facility] reason for referral (narrative)* Consultation (Routine) - Pending ReviewSpecialtyDiagnoses / ProceduresReferred By ContactReferred To ContactUrology Diagnoses Kidney stones Henna Hodge APRNHEBREW REHABILITATION C[facility] [address] [place] [address] Fermin Kumar MD [address] [place] [address] Referral IDStatusReasonStgrapeland DateExpiration DateVisits RequestedVisits [id number] Review Specialty Services Required / [facility] HospitalReason for referral (narrative)* Consultation (Routine) - Pending ReviewSpecialtyDiagnoses / ProceduresReferred By ContactReferred To ContactGeneral Surgery Diagnoses Gallbladder sludge Epigastric pain Henna Hodge MANUFACTURING ASSISTANTHEBREW REHABILITATION CENTER [address] [place] [address] [facility] Gen Surg Grillis Kurt [address] PANDEYSA[address] JOHN[facility] [place] [address] Referral IDStatusReasonStgrapeland DateExpiration DateVisits RequestedVisits [id number] Review Specialty Services Required [facility] SystemReason for referral (narrative)No reason for referral information availableCenterville Ctr Work Phone: Summary Purpose Family History Relationship Condition Age at Onset Recorded Date/T christian father Hyperlipidemia Unknown Diabetes mellitusUnknownHypertensionUnknown Advance Directives Advance Directive Response Recorded Date/ Time Advance Directives No November 29 11:46am Advance Directive Response Recorded Date/ Time Advance Directives No March 30th, 2 022 12:46pm Chief Complaint and Reason for Visit Chief Complaint Admit Date r92.8 n63.11 October 16, 2024 9:46am Chief Complaint Admit Date D24.1 March 31, 2025 9:32 am Additional Source Comments INFORMATION SOURCE (unrecogn ized section and content) DATE CREATED AUTHOR 02/24/2018 [facility] DATE CREATED AUTHOR AUTHOR'S ORGANIZ ATION 12/20/2022 [facility] DATE CREATED AUTHOR AUTHOR'S ORGANIZ ATION 11/05/2023 [facility] DATE CREATED AUTHOR AUTHOR'S ORGANIZ ATION 12/16/2023 [facility] DATE CREATED AUTHOR AUTHOR'S ORGANIZ ATION 12/17/2023 [facility] DATE CREATED AUTHOR AUTHOR'S ORGANIZ ATION 03/17/2024 [facility] DATE CREATED AUTHOR AUTHOR'S ORGANIZ ATION 11/06/2024 [facility] DATE CREATED AUTHOR AUTHOR'S ORGANIZ ATION 04/05/2025 [facility] REASON FOR VISIT (unrecogniz ed section and content) ReasonCommentsBreast ProblemReasonCommentsnew patientReasonComments CholelithiasisGALLBLADDER SLUDGE, EPIGASTRIC PAINHeartburnBloatedSpecialty Diagnoses / ProceduresReferred By ContactReferred To ContactGeneral Surgery Diagnoses Gallbladder sludge Epigastric pain Henna Hodge, MANUFACTURING ASSISTANT-BLANK DRILLER [address] [place] [address] [facility] Grillis Kurt [address] [place] [address] Referral IDStatusReasonStart DateExpiration DateVisits RequestedVisits [id number] Review Specialty Services Required /[id number] ExamReasonCommentsBreast PainPt present today for right side breast issues. Pt complains of having a small rash that itches on the right side of breast. And a small patch on top of her areola and also on the right side of her breast. Pt also would like to discuss the MRI that was done in August the results of it. Care Teams (unrecognized sec tion and content) Team MemberRelationshipSpecialtyStart DateEnd Date Sundar Todd MD PCP - [facility]01/31/23Team MemberRelationshipSpecialtyStart DateEnd Date Henna Hodge, MANUFACTURING ASSISTANT-BLANK DRILLER [address] [place] [address] PCP - [facility]10/29/23 Team Status: Active Member Role Status Dates WILDA Perales Primary Care Provider Active Team Status: Inactive Member Role Status Dates Alesha Joy PA-C Attending Provider Active Sta rt: October 16, 2024 End: October 16, 2024NIGEL PeralesSaint John's Health Systemima Care ProviderActive Start: October 16, 2024 End: October 16, 2024Team MemberRelationshipSpecialtyStart DateEnd Date Sundar Todd MD [address] [place] [address] [facility] - [facility]01/31/23 Goals (unrecognized section and content) Goals may be documented in a n alternate section FOR RECORDS PERTAINING TO PATIENTS WHO ARE [...] BE BASED ON THE PRIMARY CLINICAL RECORDS. [employer] [facility]. provides no warranty or guarantee of the accuracy or completeness of information in this document.
[2025-08-10 10:52] LABS: Hematocrit 39.1 % (36.0-48.0); Hemoglobin 13.0 g/dL (12.0-16.0); Immature Granulocytes Abs Auto 0.01 10^3/uL (0.00-0.03); Immature Granulocytes Pct Auto 0.2 % (0.0-0.5); Lymphocytes Absolute Auto 1.4 10^3/uL (1.2-3.8); Mean Corpuscular HGB Conc 33.2 g/dL (29.9-35.2); Mean Corpuscular Hemoglobin 30.0 pg (26.7-34.0); Mean Corpuscular Volume 90.3 fL (81.0-99.0); Platelet Count 213 10^3/uL (150-450); Red Blood Count 4.33 10^6/uL (4.20-5.40); White Blood Count 4.7 10^3/uL (4.0-11.0)
[2025-08-10 11:57] LABS: INR 0.98; Partial Thromboplastin Time 29.4 sec (22.3-36.2); Prothrombin Time 10.3 sec (9.0-11.6); Thyroid Stimulating Hormone 1.692 uIU/mL (0.358-3.740)
== END 2025-08-10 10:17 | disposition home or self-care (01) ==
LOC: LAB 10:18
PROVIDERS: Visit Provider Nurse Practitioner Family
DX: N92.0 Excessive and frequent menstruation with regular cycle (principal)
CPT/HCPCS: 36415; 83036; 84439; 84443; 84702; 85025; 85610; 85730